=== PATIENT | female | born 1990 | race Caucasian/White ===

== ENCOUNTER 2016-11-13 23:03 | Emergency (ER) | payer OTHER ==
[2016-11-13 23:09] VITALS: BP 124/64; PULSE 87; RESP 18; TEMP 98
--- NOTE | 2016-11-13 23:27 | ED ---
Lower Extremity Injury HPI - General Chief Complaint: Extremity Injury, Lower Stated Complaint: toe pain Time Seen by Provider: 11/13/16 23:18 Source: patient, RN notes reviewed Mode of arrival: ambulatory Limitations: no limitations - History of Present Illness Initial Comments: 26-year-old female presented emergency department for right first digit toenail injury. Patient states she's unsure this happened. Patient has thickened nails secondary fungal infection. Patient states the nail is bothering her and just wants it removed. Patient has not follow-up with primary care physician. Patient's nail still partially attached. Patient denies any redness no fevers or chills states she is able to ambulate with no difficulty. - Related Data Home Medications Medication Instructions Recorded Confirmed No Known Home Medications [No 11/13/16 11/13/16 Known Home Medications] Allergies Allergy/AdvReac Type Severity Reaction Status Date / Time lamotrigine [From Lamictal] Allergy Rash/Hives Verified 11/13/16 23:09 Review of Systems ROS Statement: Those systems with pertinent positive or pertinent negative responses have been documented in the HPI. ROS Other: All systems not noted in ROS Statement are negative. Past Medical History Past Medical History: No Reported History History of Any Multi-Drug Resistant Organisms: None Reported Past Surgical History: No Surgical Hx Reported Past Psychological History: Anxiety, Bipolar, Depression Smoking Status: Current every day smoker Past Alcohol Use History: Occasional Past Drug Use History: Marijuana General Exam Limitations: no limitations General appearance: alert, in no apparent distress Head exam: Present: atraumatic, normocephalic, normal inspection Respiratory exam: Present: normal lung sounds bilaterally. Absent: respiratory distress, wheezes, rales, rhonchi, stridor Cardiovascular Exam: Present: regular rate, normal rhythm, normal heart sounds. Absent: systolic murmur, diastolic murmur, rubs, gallop, clicks Extremities exam: Present: other (Right foot first digit there is a thickened nail consistent with onychomycosis, there is a small tear the nail at the proximal nail fold it only involves a 1/4 of the nail. There is no erythema there is minimal tenderness to the area.) Course Vital Signs 11/13/16 23:07 Temperature 98 F Pulse Rate 87 Respiratory 18 Rate Blood Pressure 124/64 O2 Sat by Pulse 99 Oximetry Medical Decision Making - Medical Decision Making Patient is refusing x-ray. I did explain she is unsure how this injury happened and I would like to have an x-ray. Patient was informed that she can follow-up with primary care physician or community development coordinator for her nail to be removed. Disposition Clinical Impression: Injury of toenail of right foot Disposition: HOME SELF-CARE Condition: Stable Instructions: Nail Avulsion (ED) Additional Instructions: Please return to the Emergency Department if symptoms worsen or any other concerns. Follow-up with her primary care physician or community development coordinator for removal of your toenail Time of Disposition: 23:27
== END 2016-11-13 23:32 | disposition home or self-care (01) ==
LOC: EC 23:03
DX: S91.211A Laceration without foreign body of right great toe with damage to nail, initial encounter (principal); L60.2 Onychogryphosis; F17.200 Nicotine dependence, unspecified, uncomplicated; Z88.8 Allergy status to other drugs, medicaments and biological substances; X58.XXXA Exposure to other specified factors, initial encounter
CPT/HCPCS: 99282

== ENCOUNTER 2017-11-27 10:23 | Emergency (ER) | payer BC, OTHER ==
[2017-11-27 11:07] VITALS: BP 118/76; PULSE 96; RESP 18; TEMP 98
--- NOTE | 2017-11-27 12:54 | ED ---
General Adult HPI <Corky Monreal - Last Filed: 11/27/17 15:20> - General Source: patient, RN notes reviewed Mode of arrival: ambulatory Limitations: no limitations <Dalton Dale - Last Filed: 11/27/17 15:24> - General Chief complaint: Nausea/Vomiting/Diarrhea Stated complaint: RASH Time Seen by Provider: 11/27/17 12:39 - History of Present Illness Initial comments: Patient 27-year-old female who presents emergency room today with a chief complaint of a rash. Patient does admit to a sore throat that started last week. She states that she had some amoxicillin that she began taking. She states she's broken out into a rash that she noticed today grades the right forearm which does feel itchy to her back as well. Patient states that she was referred from work that she needed to come here to the emergency room evaluated to make sure it wasn't contagious. Patient denies any other complaints or associated symptoms. Patient denies any recent fever, chills, shortness of breath, chest pain, back pain, abdominal pain, nausea or vomiting, numbness or tingling, dysuria or hematuria, constipation or diarrhea, headaches or visual changes, or any other complaints. (Dalton Dale) - Related Data Previous Rx's Medication Instructions Recorded Triamcinolone 0.1% Cream [Kenalog] 1 applicatio TOPICAL BID #1 tube 11/27/17 predniSONE 40 mg PO DAILY 5 Days tab 11/27/17 Allergies Allergy/AdvReac Type Severity Reaction Status Date / Time lamotrigine [From Lamictal] Allergy Rash/Hives Verified 11/27/17 12:39 Review of Systems ROS Other: All systems not noted in ROS Statement are negative. <Corky Monreal - Last Filed: 11/27/17 15:20> ROS Other: All systems not noted in ROS Statement are negative. <Dalton Dale - Last Filed: 11/27/17 15:24> ROS Statement: Those systems with pertinent positive or pertinent negative responses have been documented in the HPI. Past Medical History Past Medical History: No Reported History History of Any Multi-Drug Resistant Organisms: None Reported Past Surgical History: No Surgical Hx Reported Past Psychological History: Anxiety, Bipolar, Depression Smoking Status: Current every day smoker Past Alcohol Use History: Occasional Past Drug Use History: None Reported, Marijuana <Dalton Dale - Last Filed: 11/27/17 15:24> General Exam <Corky Monreal - Last Filed: 11/27/17 15:20> Limitations: no limitations <Dalton Dale - Last Filed: 11/27/17 15:24> - General Exam Comments Initial Comments: General: The patient is awake and alert, in no distress, and does not appear acutely ill. Eye: Pupils are equal, round and reactive to light, extra-ocular movements are intact. No nystagmus. There is normal conjunctiva bilaterally. No signs of icterus. Ears, nose, mouth and throat: There are moist mucous membranes and no oral lesions. Mild redness of the posterior pharynx. Uvula midline. Patient swallows without any difficulty. Neck: The neck is supple, there is no tenderness or JVD. Cardiovascular: There is a regular rate and rhythm. No murmur, rub or gallop is appreciated. Respiratory: Lungs are clear to auscultation, respirations are non-labored, breath sounds are equal. No wheezes, stridor, rales, or rhonchi. Musculoskeletal: Normal ROM, no tenderness. Strength 5/5. Sensation intact. Pulses equal bilaterally 2+. Neurological: A&O x 3. CN II-XII intact, There are no obvious motor or sensory deficits. Coordination appears grossly intact. Speech is normal. Skin: She does have a red raised rash maculopapular to the volar aspect of the right forearm. Psychiatric: Cooperative, appropriate mood & affect, normal judgment. (Dalton Dale) Vital Signs 11/27/17 11:03 Temperature 98.0 F Pulse Rate 96 Respiratory 18 Rate Blood Pressure 118/76 O2 Sat by Pulse 99 Oximetry Medical Decision Making - Lab Data Result diagrams: 11/27/17 14:05 11/27/17 14:05 <Corky Monreal - Last Filed: 11/27/17 15:20> - Lab Data Result diagrams: 11/27/17 14:05 11/27/17 14:05 <Dalton Dale - Last Filed: 11/27/17 15:24> - Medical Decision Making The patient was seen and examined. All diagnostics were reviewed. The case is discussed with PA and I agree with the findings as documented. (Corky Monreal) - Lab Data Lab Results 11/27/17 11/27/17 11/27/17 Range/Units 14:05 14:05 14:05 WBC 7.4 (3.8-10.6) k/uL RBC 4.51 (3.80-5.40) m/uL Hgb 13.0 (11.4-16.0) gm/dL Hct 41.8 (34.0-46.0) % MCV 92.7 (80.0-100.0) fL MCH 28.7 (25.0-35.0) pg MCHC 31.0 (31.0-37.0) g/dL RDW 14.1 (11.5-15.5) % Plt Count 296 (150-450) k/uL Neutrophils % 56 % Lymphocytes % 32 % Monocytes % 4 % Eosinophils % 6 % Basophils % 1 % Neutrophils # 4.1 (1.3-7.7) k/uL Lymphocytes # 2.4 (1.0-4.8) k/uL Monocytes # 0.3 (0-1.0) k/uL Eosinophils # 0.4 (0-0.7) k/uL Basophils # 0.0 (0-0.2) k/uL Sodium 138 (137-145) mmol/L Potassium 4.3 (3.5-5.1) mmol/L Chloride 105 (98-107) mmol/L Carbon Dioxide 27 (22-30) mmol/L Anion Gap 6 mmol/L BUN 11 (7-17) mg/dL Creatinine 0.59 (0.52-1.04) mg/dL Est GFR (MDRD) Af Amer >60 (>60 ml/min/1.73 sqM) Est GFR (MDRD) Non-Af >60 (>60 ml/min/1.73 sqM) Glucose 90 (74-99) mg/dL Calcium 9.1 (8.4-10.2) mg/dL Total Bilirubin 0.2 (0.2-1.3) mg/dL AST 24 (14-36) U/L ALT 28 (9-52) U/L Alkaline Phosphatase 51 (38-126) U/L Total Protein 6.1 L (6.3-8.2) g/dL Albumin 3.6 (3.5-5.0) g/dL Heterophile Antibody Negative (Negative) Group A Strep Rapid (Negative) 11/27/17 Range/Units 14:05 WBC (3.8-10.6) k/uL RBC (3.80-5.40) m/uL Hgb (11.4-16.0) gm/dL Hct (34.0-46.0) % MCV (80.0-100.0) fL MCH (25.0-35.0) pg MCHC (31.0-37.0) g/dL RDW (11.5-15.5) % Plt Count (150-450) k/uL Neutrophils % % Lymphocytes % % Monocytes % % Eosinophils % % Basophils % % Neutrophils # (1.3-7.7) k/uL Lymphocytes # (1.0-4.8) k/uL Monocytes # (0-1.0) k/uL Eosinophils # (0-0.7) k/uL Basophils # (0-0.2) k/uL Sodium (137-145) mmol/L Potassium (3.5-5.1) mmol/L Chloride (98-107) mmol/L Carbon Dioxide (22-30) mmol/L Anion Gap mmol/L BUN (7-17) mg/dL Creatinine (0.52-1.04) mg/dL Est GFR (MDRD) Af Amer (>60 ml/min/1.73 sqM) Est GFR (MDRD) Non-Af (>60 ml/min/1.73 sqM) Glucose (74-99) mg/dL Calcium (8.4-10.2) mg/dL Total Bilirubin (0.2-1.3) mg/dL AST (14-36) U/L ALT (9-52) U/L Alkaline Phosphatase (38-126) U/L Total Protein (6.3-8.2) g/dL Albumin (3.5-5.0) g/dL Heterophile Antibody (Negative) Group A Strep Rapid Negative (Negative) Disposition <Corky Monreal - Last Filed: 11/27/17 15:20> Time of Disposition: 15:22 <Dalton Dale - Last Filed: 11/27/17 15:24> Clinical Impression: Contact dermatitis Disposition: HOME SELF-CARE Condition: Good Instructions: Contact Dermatitis (ED) Additional Instructions: Please use Benadryl one to 2 tabs every 6 hours as needed. Please use steroids as prescribed. Return to emergency room symptoms increase or concerns Prescriptions: predniSONE 40 mg PO DAILY 5 Days tab Triamcinolone 0.1% Cream [Kenalog] 1 applicatio TOPICAL BID #1 tube Referrals: None,Stated [Primary Care Provider] - 1-2 days Nicholas Pickering MD [REFERRING] - 1-2 days
[2017-11-27 14:26] LABS: Basophils % (A) 1 %; Eosinophils # (A) 0.4 k/uL (0-0.7); Eosinophils % (A) 6 %; HCT 41.8 % (34.0-46.0); Lymphocytes # (A) 2.4 k/uL (1.0-4.8); Lymphocytes % (A) 32 %; MCH 28.7 pg (25.0-35.0); MCV 92.7 fL (80.0-100.0); Monocytes # (A) 0.3 k/uL (0-1.0); Monocytes % (A) 4 %; Neutrophils # (A) 4.1 k/uL (1.3-7.7); Neutrophils % (A) 56 %; Platelet Count 296 k/uL (150-450); RBC 4.51 m/uL (3.80-5.40); RDW 14.1 % (11.5-15.5); WBC 7.4 k/uL (3.8-10.6)
[2017-11-27 14:39] LABS: ALT 28 U/L (9-52); AST 24 U/L (14-36); Albumin 3.6 g/dL (3.5-5.0); Alkaline Phosphatase 51 U/L (38-126); Anion Gap 6 mmol/L; Blood Urea Nitrogen 11 mg/dL (7-17); Calcium 9.1 mg/dL (8.4-10.2); Carbon Dioxide 27 mmol/L (22-30); Chloride 105 mmol/L (98-107); Glucose 90 mg/dL (74-99); Potassium 4.3 mmol/L (3.5-5.1); Sodium 138 mmol/L (137-145); Total Bilirubin 0.2 mg/dL (0.2-1.3); Total Protein 6.1 g/dL (6.3-8.2)
[2017-11-27 15:40] LABS: Appearance,Urine Cloudy (Clear); Bacteria,Urine Rare /hpf; Bilirubin,Urine Negative (Negative); Blood,Urine Negative (Negative); Color,Urine Light Yellow; Glucose,Urine (UA) Negative (Negative); Ketones,Urine Negative (Negative); Leukocyte Esterase,Urine Small (Negative); Nitrite,Urine Negative (Negative); Protein,Urine Negative (Negative); RBC,Urine <1 /hpf (0-5); Specific Gravity,Urine 1.009 (1.001-1.035); Squamous Epithelial Cell,Urine 12 /hpf (0-4); Urobilinogen,Urine <2.0 mg/dL (<2.0); WBC,Urine 4 /hpf (0-5)
== END 2017-11-27 15:41 | disposition home or self-care (01) ==
LOC: EC 10:23
DX: L25.9 Unspecified contact dermatitis, unspecified cause (principal); F17.200 Nicotine dependence, unspecified, uncomplicated; Z88.8 Allergy status to other drugs, medicaments and biological substances
CPT/HCPCS: 36415; 80053; 81001; 85025; 86308; 87081; 87430; 99284

== ENCOUNTER 2018-04-04 19:37 | Emergency (ER) | payer BC, OTHER ==
[2018-04-04] MEDS ORDERED: SODIUM CHLORIDE 0.9% 1,000 ML IV ONE (20:02)
--- NOTE | 2018-04-04 20:06 | ED ---
Female Urogenital HPI - General Chief complaint: Vaginal Bleeding Stated complaint: 5 weeks /Bleeding Time Seen by Provider: 04/04/18 19:52 Source: patient, family Mode of arrival: ambulatory - History of Present Illness Initial comments: 27-year-old female patient presents to the emergency department today for evaluation of vaginal bleeding. Patient states she is approximately 5 weeks . Patient is . Patient states that she had a positive test last week, but the lines were faint. States that she did have heavy vaginal bleeding on the and 30 of March. States that the bleeding stopped and then started again today with spotting. She did have confirmed [facility]. Patient's that she is having some mild right lower quadrant cramping with this. She denies any back pain. Denies any abnormal vaginal discharge. She denies any hematuria, dysuria, urinary frequency, urinary urgency. Patient denies any recent rash, fever, chills, shortness breath, chest pain, abdominal pain, nausea, vomiting, diarrhea, constipation, back pain, numbness, tingling, dizziness, weakness, headache, visual changes, or any other complaints. Patient denies ever having to receive [place] during her pregnancies. - Related Data Home Medications Medication Instructions Recorded Confirmed Folic Acid 1 mg PO DAILY 04/04/18 04/04/18 Pnv,Calcium 72/Iron/Folic Acid 1 tab PO DAILY 04/04/18 04/04/18 [ Plus Tablet] Allergies Allergy/AdvReac Type Severity Reaction Status Date / Time lamotrigine [From Lamictal] Allergy Rash/Hives Verified 04/04/18 19:52 Review of Systems ROS Statement: Those systems with pertinent positive or pertinent negative responses have been documented in the HPI. ROS Other: All systems not noted in ROS Statement are negative. Past Medical History Past Medical History: No Reported History History of Any Multi-Drug Resistant Organisms: None Reported Past Surgical History: No Surgical Hx Reported Smoking Status: Current every day smoker Past Alcohol Use History: Occasional Past Drug Use History: None Reported, Marijuana General Exam General appearance: alert, in no apparent distress, other (This is a well- developed, well-nourished adult female patient in no acute distress. Vital signs upon presentation are temperature 98.8F, pulse 86, respirations 20, blood pressure 133/80, pulse ox 99% on room air.) Eye exam: Present: normal appearance, PERRL, EOMI. Absent: scleral icterus, conjunctival injection, periorbital swelling ENT exam: Present: normal exam, normal oropharynx, mucous membranes moist Respiratory exam: Present: normal lung sounds bilaterally. Absent: respiratory distress, wheezes, rales, rhonchi, stridor Cardiovascular Exam: Present: regular rate, normal rhythm, normal heart sounds. Absent: systolic murmur, diastolic murmur, rubs, gallop, clicks GI/Abdominal exam: Present: soft, normal bowel sounds. Absent: distended, tenderness, guarding, rebound, rigid Back exam: Present: normal inspection. Absent: CVA tenderness (R), CVA tenderness (L) Neurological exam: Present: alert, oriented X3, CN II-XII intact Psychiatric exam: Present: normal affect, normal mood Skin exam: Present: warm, dry, intact, normal color. Absent: rash Course Vital Signs 04/04/18 04/04/18 19:44 21:52 Temperature 98.8 F 98.6 F Pulse Rate 86 80 Respiratory 20 19 Rate Blood Pressure 133/80 129/76 O2 Sat by Pulse 99 98 Oximetry Medical Decision Making - Medical Decision Making 27-year-old female patient presents the emergency department today for complaints of mild right lower quadrant cramping and spotting. Physical examination was unremarkable. There is no abdominal tenderness. Labs reviewed and did show a serum beta Quant of 42. Patient is be positive. Ultrasound was obtained and showed no current intrauterine . I did discuss findings with the patient. We did discuss early versus threatened miscarriage. She was given a prescription for repeat hCG in 3 days. She is instructed to follow-up with Dr. Paredes for recheck as soon as possible. Return parameters discussed in detail. She verbalizes understanding and agrees with this plan. - Lab Data Result diagrams: 04/04/18 20:14 04/04/18 20:14 Lab Results 04/04/18 04/04/18 04/04/18 Range/Units 20:14 20:14 20:14 WBC 6.1 (3.8-10.6) k/uL RBC 4.42 (3.80-5.40) m/uL Hgb 13.1 (11.4-16.0) gm/dL Hct 38.6 (34.0-46.0) % MCV 87.2 (80.0-100.0) fL MCH 29.6 (25.0-35.0) pg MCHC 33.9 (31.0-37.0) g/dL RDW 13.5 (11.5-15.5) % Plt Count 304 (150-450) k/uL Neutrophils % 53 % Lymphocytes % 33 % Monocytes % 6 % Eosinophils % 6 % Basophils % 0 % Neutrophils # 3.2 (1.3-7.7) k/uL Lymphocytes # 2.1 (1.0-4.8) k/uL Monocytes # 0.4 (0-1.0) k/uL Eosinophils # 0.4 (0-0.7) k/uL Basophils # 0.0 (0-0.2) k/uL Sodium 139 (137-145) mmol/L Potassium 4.6 (3.5-5.1) mmol/L Chloride 101 (98-107) mmol/L Carbon Dioxide 29 (22-30) mmol/L Anion Gap 9 mmol/L BUN 26 H (7-17) mg/dL Creatinine 0.62 (0.52-1.04) mg/dL Est GFR (CKD-EPI)AfAm >90 (>60 ml/min/1.73 sqM) Est GFR (CKD-EPI)NonAf >90 (>60 ml/min/1.73 sqM) Glucose 87 (74-99) mg/dL Calcium 9.9 (8.4-10.2) mg/dL Total Bilirubin 0.2 (0.2-1.3) mg/dL AST 23 (14-36) U/L ALT 32 (9-52) U/L Alkaline Phosphatase 43 (38-126) U/L Total Protein 7.0 (6.3-8.2) g/dL Albumin 4.4 (3.5-5.0) g/dL HCG, Quant 42.6 mIU/mL Urine Color Urine Appearance (Clear) Urine pH (5.0-8.0) Ur Specific [place] (1.001-1.035) Urine Protein (Negative) Urine Glucose (UA) (Negative) Urine Ketones (Negative) Urine Blood (Negative) Urine Nitrite (Negative) Urine Bilirubin (Negative) Urine Urobilinogen (<2.0) mg/dL Ur Leukocyte Esterase (Negative) Urine RBC (0-5) /hpf Urine WBC (0-5) /hpf Ur Squamous Epith Cells (0-4) /hpf Amorphous Sediment (None) /hpf Urine Mucus (None) /hpf Blood Type B Positive Blood Type Recheck No 04/04/18 Range/Units 20:14 WBC (3.8-10.6) k/uL RBC (3.80-5.40) m/uL Hgb (11.4-16.0) gm/dL Hct (34.0-46.0) % MCV (80.0-100.0) fL MCH (25.0-35.0) pg MCHC (31.0-37.0) g/dL RDW (11.5-15.5) % Plt Count (150-450) k/uL Neutrophils % % Lymphocytes % % Monocytes % % Eosinophils % % Basophils % % Neutrophils # (1.3-7.7) k/uL Lymphocytes # (1.0-4.8) k/uL Monocytes # (0-1.0) k/uL Eosinophils # (0-0.7) k/uL Basophils # (0-0.2) k/uL Sodium (137-145) mmol/L Potassium (3.5-5.1) mmol/L Chloride (98-107) mmol/L Carbon Dioxide (22-30) mmol/L Anion Gap mmol/L BUN (7-17) mg/dL Creatinine (0.52-1.04) mg/dL Est GFR (CKD-EPI)AfAm (>60 ml/min/1.73 sqM) Est GFR (CKD-EPI)NonAf (>60 ml/min/1.73 sqM) Glucose (74-99) mg/dL Calcium (8.4-10.2) mg/dL Total Bilirubin (0.2-1.3) mg/dL AST (14-36) U/L ALT (9-52) U/L Alkaline Phosphatase (38-126) U/L Total Protein (6.3-8.2) g/dL Albumin (3.5-5.0) g/dL HCG, Quant mIU/mL Urine Color Light Yellow Urine Appearance Cloudy H (Clear) Urine pH 7.5 (5.0-8.0) Ur Specific [place] 1.015 (1.001-1.035) Urine Protein Negative (Negative) Urine Glucose (UA) Negative (Negative) Urine Ketones Negative (Negative) Urine Blood Small H (Negative) Urine Nitrite Negative (Negative) Urine Bilirubin Negative (Negative) Urine Urobilinogen <2.0 (<2.0) mg/dL Ur Leukocyte Esterase Negative (Negative) Urine RBC <1 (0-5) /hpf Urine WBC <1 (0-5) /hpf Ur Squamous Epith Cells <1 (0-4) /hpf Amorphous Sediment Rare H (None) /hpf Urine Mucus Rare H (None) /hpf Blood Type Blood Type Recheck - Radiology Data Radiology results: report reviewed Transvaginal ultrasound of the pelvis was obtained. Report was reviewed in its entirety. Impression by Dr. Smith shows normal uterus and endometrium. No evidence of a gestational sac. No adnexal mass. Follicular ovarian cysts. Disposition Clinical Impression: Threatened miscarriage Disposition: HOME SELF-CARE Condition: Good Instructions: Threatened Miscarriage (ED) Additional Instructions: Follow-up with [facility] [employer] as soon as possible. Have repeat hCG level drawn in 3 days. Return here immediately for any new, worsening, or concerning symptoms. Is patient prescribed a controlled substance at d/c from ED?: No Referrals: None,Stated [Primary Care Provider] - 1-2 days Time of Disposition: 21:22
[2018-04-04 20:26] LABS: Basophils % (A) 0 %; Eosinophils # (A) 0.4 k/uL (0-0.7); Eosinophils % (A) 6 %; HCT 38.6 % (34.0-46.0); HGB 13.1 gm/dL (11.4-16.0); Lymphocytes # (A) 2.1 k/uL (1.0-4.8); Lymphocytes % (A) 33 %; MCH 29.6 pg (25.0-35.0); MCHC 33.9 g/dL (31.0-37.0); MCV 87.2 fL (80.0-100.0); Mean Platelet Volume 6.7; Monocytes # (A) 0.4 k/uL (0-1.0); Monocytes % (A) 6 %; Neutrophils # (A) 3.2 k/uL (1.3-7.7); Neutrophils % (A) 53 %; Platelet Count 304 k/uL (150-450); RBC 4.42 m/uL (3.80-5.40); RDW 13.5 % (11.5-15.5); WBC 6.1 k/uL (3.8-10.6)
[2018-04-04 20:31] LABS: Amorphous Sediment,Urine Rare /hpf; Appearance,Urine Cloudy (Clear); Bilirubin,Urine Negative (Negative); Blood,Urine Small (Negative); Color,Urine Light Yellow; Glucose,Urine (UA) Negative (Negative); Ketones,Urine Negative (Negative); Leukocyte Esterase,Urine Negative (Negative); Mucus,Urine Rare /hpf; Nitrite,Urine Negative (Negative); PH, Urine 7.5 (5.0-8.0); Protein,Urine Negative (Negative); RBC,Urine <1 /hpf (0-5); Specific Gravity,Urine 1.015 (1.001-1.035); Squamous Epithelial Cell,Urine <1 /hpf (0-4); Urobilinogen,Urine <2.0 mg/dL (<2.0); WBC,Urine <1 /hpf (0-5)
[2018-04-04 20:35] LABS: ALT 32 U/L (9-52); AST 23 U/L (14-36); Albumin 4.4 g/dL (3.5-5.0); Alkaline Phosphatase 43 U/L (38-126); Anion Gap 9 mmol/L; Blood Urea Nitrogen 26 mg/dL (7-17); Calcium 9.9 mg/dL (8.4-10.2); Carbon Dioxide 29 mmol/L (22-30); Chloride 101 mmol/L (98-107); Glucose 87 mg/dL (74-99); Potassium 4.6 mmol/L (3.5-5.1); Sodium 139 mmol/L (137-145); Total Bilirubin 0.2 mg/dL (0.2-1.3)
[2018-04-04 20:51] LABS: HCG,Quantitative Serum 42.6 mIU/mL
--- NOTE | 2018-04-04 21:09 | US ---
EXAMINATION TYPE: Transabdominal DATE OF EXAM: 02/13/18 COMPARISON: NONE CLINICAL HISTORY: Pain. Intermittent bleeding and right pelvic cramping x 1 week, + home te st, 3, para 2 EXAM PERFORMED: Transvaginal (TV) and Transabdominal (TA) EXAM MEASUREMENTS: GESTATIONAL AGE / DATING Physician Established: Not established yet Dates by LMP: (5 weeks/3 days) EDC: 12/02/2018 Dates by First Scan: This is 1st scan Dates by Current Scan for: No IUP seen at this time MATERNAL ANATOMY Uterus: 7.1 x 3.9 x 4.8cm, anteverted Right Ovary: 3.2 x 2.3 x 2.9cm, multiple follicles Left Ovary: 2.8 x 1.4 x 2.3cm, multiple follicles Post CDS / Adnexa: wnl Presence of free fluid: no Presence of corpus luteal cyst: not seen at this time Presence of subchorionic bleed: no GESTATION / SURVEY IUP: No IUP seen at this time Date of LMP: 02/25/2018 Beta HcG (if available): Not available at time of exam. IMPRESSION: Normal uterus and endometrium. No evidence of a gestational sac. No adnexal mass. Follicular ovarian cysts.
[2018-04-04 21:54] VITALS: BP 129/76; PULSE 80; RESP 19; TEMP 98.6
== END 2018-04-04 21:55 | disposition home or self-care (01) ==
LOC: EC 19:37
DX: O20.0 Threatened abortion (principal); Z3A.01 Less than 8 weeks gestation of pregnancy; O99.331 Smoking (tobacco) complicating pregnancy, first trimester; F17.200 Nicotine dependence, unspecified, uncomplicated; Z79.899 Other long term (current) drug therapy; Z88.8 Allergy status to other drugs, medicaments and biological substances
CPT/HCPCS: 36415; 76801; 76817; 80053; 81001; 84702; 85025; 86900; 86901; 96360; 96361; 99284

== ENCOUNTER → 2018-04-07 | Outpatient (CLI) | payer SELFPAY | END | disposition home or self-care (01) | LOC: LABWHC1 09:17 | PROVIDERS: ATTEND Nurse Practitioner | DX: O20.0 Threatened abortion (principal); Z3A.00 Weeks of gestation of pregnancy not specified | CPT/HCPCS: 36415; 84702 ==

== ENCOUNTER → 2018-04-16 | Outpatient (CLI) | payer SELFPAY | END | disposition home or self-care (01) | LOC: LABWHC1 08:22 | PROVIDERS: ATTEND Obstetrics & Gynecology | DX: O03.9 Complete or unspecified spontaneous abortion without complication (principal) | CPT/HCPCS: 36415; 84702 ==

== ENCOUNTER → 2018-08-03 | Outpatient (CLI) | payer SELFPAY ==
[2018-08-03 10:56] LABS: T4, Free (Free Thyroxine) 1.02 ng/dL (0.78-2.19)
[2018-08-03 16:06] LABS: Progesterone 0.5 ng/mL
== END | disposition home or self-care (01) ==
LOC: LABWHC1 09:43
PROVIDERS: ATTEND Obstetrics & Gynecology
DX: N92.6 Irregular menstruation, unspecified (principal)
CPT/HCPCS: 36415; 82627; 82670; 83001; 83002; 84144; 84146; 84403; 84439; 84443

== ENCOUNTER 2018-11-09 13:58 | Emergency (ER) | payer BC ==
[2018-11-09 15:17] LABS: INR 0.9 (<1.2); Partial Thromboplastin Time 22.8 sec (22.0-30.0); Prothrombin Time 10.1 sec (9.0-12.0)
[2018-11-09 15:24] LABS: Basophils % (A) 0 %; Eosinophils # (A) 0.3 k/uL (0-0.7); Eosinophils % (A) 5 %; HCT 39.6 % (34.0-46.0); HGB 13.1 gm/dL (11.4-16.0); Lymphocytes # (A) 1.3 k/uL (1.0-4.8); Lymphocytes % (A) 22 %; MCH 28.4 pg (25.0-35.0); MCHC 33.2 g/dL (31.0-37.0); MCV 85.8 fL (80.0-100.0); Mean Platelet Volume 6.2; Monocytes # (A) 0.2 k/uL (0-1.0); Monocytes % (A) 4 %; Neutrophils # (A) 3.9 k/uL (1.3-7.7); Neutrophils % (A) 68 %; Platelet Count 291 k/uL (150-450); RBC 4.62 m/uL (3.80-5.40); RDW 12.6 % (11.5-15.5); WBC 5.8 k/uL (3.8-10.6)
[2018-11-09 15:37] LABS: ALT 23 U/L (9-52); AST 18 U/L (14-36); Albumin 4.3 g/dL (3.5-5.0); Alkaline Phosphatase 32 U/L (38-126); Anion Gap 9 mmol/L; Blood Urea Nitrogen 11 mg/dL (7-17); Calcium 10.3 mg/dL (8.4-10.2); Carbon Dioxide 25 mmol/L (22-30); Chloride 102 mmol/L (98-107); Glucose 86 mg/dL (74-99); Potassium 4.4 mmol/L (3.5-5.1); Sodium 136 mmol/L (137-145); Total Bilirubin 0.3 mg/dL (0.2-1.3); Total Protein 7.2 g/dL (6.3-8.2)
[2018-11-09 15:53] LABS: HCG,Quantitative Serum 2953.1 mIU/mL
--- NOTE | 2018-11-09 16:01 | ED ---
Abdominal Pain HPI <Nhan Bonner - Last Filed: 11/09/18 17:43> - General Source: patient, RN notes reviewed, old records reviewed Mode of arrival: ambulatory Limitations: no limitations <Nahed Ruiz - Last Filed: 11/09/18 20:32> - General Chief Complaint: Abdominal Pain Stated Complaint: 5 weeks abd pain Time Seen by Provider: 11/09/18 14:29 - History of Present Illness Initial Comments: Patient is a 28 year old female with chief complaint of left-sided abdominal pain, Patient ports that she is a proximally 5-6 weeks . Patient's OB/ ACCOUNT EXECUTIVE KEY ACCOUNTS is Dr. Paredes. Patient reports that she has been undergoing treatment with metformin and Clomid for her PCO S. Over the past 3 days she's had the feeling that she had have a bowel movement. Patient states that despite trying to have a bowel movement she has been unable to get rid of this pain. She reports it's painful with movement and ambulation. Patient states the pain had her doubled over at work. Patient reports that she has had no fevers or chills. She reports the pain seems to wax and wane. (Nahed Ruiz) - Related Data Home Medications Medication Instructions Recorded Confirmed Folic Acid 1 mg PO DAILY 04/04/18 11/09/18 Pnv,Calcium 72/Iron/Folic Acid 1 tab PO DAILY 04/04/18 11/09/18 [ Plus Tablet] metFORMIN HCL [Glucophage] 850 mg PO BID 11/09/18 11/09/18 Allergies Allergy/AdvReac Type Severity Reaction Status Date / Time lamotrigine [From Lamictal] Allergy Rash/Hives Verified 11/09/18 15:42 Review of Systems ROS Other: All systems not noted in ROS Statement are negative. <Nhan Bonner - Last Filed: 11/09/18 17:43> ROS Other: All systems not noted in ROS Statement are negative. <Nahed Ruiz - Last Filed: 11/09/18 20:32> ROS Statement: Those systems with pertinent positive or pertinent negative responses have been documented in the HPI. Past Medical History Past Medical History: No Reported History Additional Past Medical History / Comment(s): PCOS History of Any Multi-Drug Resistant Organisms: None Reported Past Surgical History: No Surgical Hx Reported Past Psychological History: Anxiety, Bipolar, Depression Smoking Status: Current every day smoker Past Alcohol Use History: Occasional Past Drug Use History: None Reported, Marijuana <Nahed Ruiz - Last Filed: 11/09/18 20:32> General Exam <Nhan Bonner - Last Filed: 11/09/18 17:43> Limitations: no limitations General appearance: alert, in no apparent distress Head exam: Present: atraumatic, normocephalic, normal inspection Eye exam: Present: normal appearance, PERRL, EOMI. Absent: scleral icterus, conjunctival injection, periorbital swelling ENT exam: Present: normal exam, mucous membranes moist Neck exam: Present: normal inspection. Absent: tenderness, meningismus, lymphadenopathy Respiratory exam: Present: normal lung sounds bilaterally. Absent: respiratory distress, wheezes, rales, rhonchi, stridor Cardiovascular Exam: Present: regular rate, normal rhythm, normal heart sounds. Absent: systolic murmur, diastolic murmur, rubs, gallop, clicks GI/Abdominal exam: Present: tenderness (Patient has significant left lower quadrant tenderness and guarding noted.), normal bowel sounds. Absent: soft, distended, guarding, rebound, rigid Extremities exam: Present: normal inspection, full ROM, normal capillary refill. Absent: tenderness, pedal edema, joint swelling, calf tenderness Back exam: Present: normal inspection Neurological exam: Present: alert, oriented X3, CN II-XII intact Psychiatric exam: Present: normal affect, normal mood Skin exam: Present: warm, dry, intact, normal color. Absent: rash <Nahed Ruiz - Last Filed: 11/09/18 20:32> - General Exam Comments Initial Comments: This is a 28-year-old female. Alert and oriented. Patient appears in On her discomfort. Patient is crying. (Nahed Ruiz) Vital Signs 11/09/18 11/09/18 14:10 17:10 Temperature 97.7 F 98.1 F Pulse Rate 94 82 Respiratory 20 18 Rate Blood Pressure 125/70 126/85 O2 Sat by Pulse 98 98 Oximetry - Reevaluation(s) Reevaluation #1: 11/09/18 17:22 Patient reexamined and reevaluated by myself, Dr. Bonner. Patient resting in bed. Patient does have moderate tenderness to lower abdominal/pelvic region on exam. First day last menstrual period was September 28. Patient is A1. Dr. Paredes has been paged. Patient does have an appointment to see her and has seen her in the past. I did review and agree with PAs findings. This includes all diagnostic interpretations and treatment plan. 11/09/18 17:43 Case was discussed in detail with Dr. Sylvester. She does recommend repeat beta hCG Monday night or early Monday morning. She also recommends patient follow up with Dr. Paredes on Monday. Office is closed until Monday. Return if symptoms worsen or bleeding. (Nhan Bonner) Medical Decision Making - Lab Data Result diagrams: 11/09/18 14:51 11/09/18 14:51 <Nhan Bonner - Last Filed: 11/09/18 17:43> - Lab Data Result diagrams: 11/09/18 14:51 11/09/18 14:51 - Radiology Data Radiology results: report reviewed <Nahed Ruiz - Last Filed: 11/09/18 20:32> - Medical Decision Making Patient is a 28-year-old female, really 6 weeks . She presents emergency department today for complaints of left-sided abdominal pain for the past 3 days. Patient is very tender on exam. At this time is concern for ectopic . HCG levels obtained an ultrasound completed. Ultrasound does not show evidence of intrauterine . There was a corpus luteum cyst over the left ovary. Ultrasound report states there is possibility of 2 early to detect intrauterine , threatened miscarriage, or ectopic . White blood cell count was reviewed and normal. Hemoglobin is stable. Pelvic exam did show some tenderness, but no bleeding was noted. Patient is very anxious and concerned that she could have a miscarriage or ectopic at this time. She reports that she has been suffering from infertility for the past year. I discussed the case with Dr. Bonner. He Discussed the case with on-call LINE CONSTRUCTION ENGINEER Dr. Sylvester. Dr. Sylvester recommends that Patient repeat her hCG level on Monday morning have the labs sent to her. This was completed on the outpatient prescription form.. And the Patient should follow-up with Dr. Sylvester on Monday. I had a lengthy discussion with the Patient if she had severe pain that she must return for reevaluation. Patient was hesitant for discharge but eventually did agree to be discharged with close follow-up. Strict return parameters were discussed. (Nahed Ruiz) - Lab Data Lab Results 11/09/18 11/09/18 11/09/18 Range/Units 14:51 14:51 14:51 WBC 5.8 (3.8-10.6) k/uL RBC 4.62 (3.80-5.40) m/uL Hgb 13.1 (11.4-16.0) gm/dL Hct 39.6 (34.0-46.0) % MCV 85.8 (80.0-100.0) fL MCH 28.4 (25.0-35.0) pg MCHC 33.2 (31.0-37.0) g/dL RDW 12.6 (11.5-15.5) % Plt Count 291 (150-450) k/uL Neutrophils % 68 % Lymphocytes % 22 % Monocytes % 4 % Eosinophils % 5 % Basophils % 0 % Neutrophils # 3.9 (1.3-7.7) k/uL Lymphocytes # 1.3 (1.0-4.8) k/uL Monocytes # 0.2 (0-1.0) k/uL Eosinophils # 0.3 (0-0.7) k/uL Basophils # 0.0 (0-0.2) k/uL PT (9.0-12.0) sec INR (<1.2) APTT (22.0-30.0) sec Sodium 136 L (137-145) mmol/L Potassium 4.4 (3.5-5.1) mmol/L Chloride 102 (98-107) mmol/L Carbon Dioxide 25 (22-30) mmol/L Anion Gap 9 mmol/L BUN 11 (7-17) mg/dL Creatinine 0.52 (0.52-1.04) mg/dL Est GFR (CKD-EPI)AfAm >90 (>60 ml/min/1.73 sqM) Est GFR (CKD-EPI)NonAf >90 (>60 ml/min/1.73 sqM) Glucose 86 (74-99) mg/dL Calcium 10.3 H (8.4-10.2) mg/dL Total Bilirubin 0.3 (0.2-1.3) mg/dL AST 18 (14-36) U/L ALT 23 (9-52) U/L Alkaline Phosphatase 32 L (38-126) U/L Total Protein 7.2 (6.3-8.2) g/dL Albumin 4.3 (3.5-5.0) g/dL HCG, Quant 2953.1 mIU/mL Urine Color Urine Appearance (Clear) Urine pH (5.0-8.0) Ur Specific [place] (1.001-1.035) Urine Protein (Negative) Urine Glucose (UA) (Negative) Urine Ketones (Negative) Urine Blood (Negative) Urine Nitrite (Negative) Urine Bilirubin (Negative) Urine Urobilinogen (<2.0) mg/dL Ur Leukocyte Esterase (Negative) Trichomonas Ag (Rapid) (Negative) Blood Type B Positive Blood Type Recheck No 11/09/18 11/09/18 11/09/18 Range/Units 14:51 16:31 17:00 WBC (3.8-10.6) k/uL RBC (3.80-5.40) m/uL Hgb (11.4-16.0) gm/dL Hct (34.0-46.0) % MCV (80.0-100.0) fL MCH (25.0-35.0) pg MCHC (31.0-37.0) g/dL RDW (11.5-15.5) % Plt Count (150-450) k/uL Neutrophils % % Lymphocytes % % Monocytes % % Eosinophils % % Basophils % % Neutrophils # (1.3-7.7) k/uL Lymphocytes # (1.0-4.8) k/uL Monocytes # (0-1.0) k/uL Eosinophils # (0-0.7) k/uL Basophils # (0-0.2) k/uL PT 10.1 (9.0-12.0) sec INR 0.9 (<1.2) APTT 22.8 (22.0-30.0) sec Sodium (137-145) mmol/L Potassium (3.5-5.1) mmol/L Chloride (98-107) mmol/L Carbon Dioxide (22-30) mmol/L Anion Gap mmol/L BUN (7-17) mg/dL Creatinine (0.52-1.04) mg/dL Est GFR (CKD-EPI)AfAm (>60 ml/min/1.73 sqM) Est GFR (CKD-EPI)NonAf (>60 ml/min/1.73 sqM) Glucose (74-99) mg/dL Calcium (8.4-10.2) mg/dL Total Bilirubin (0.2-1.3) mg/dL AST (14-36) U/L ALT (9-52) U/L Alkaline Phosphatase (38-126) U/L Total Protein (6.3-8.2) g/dL Albumin (3.5-5.0) g/dL HCG, Quant mIU/mL Urine Color Colorless Urine Appearance Clear (Clear) Urine pH 6.0 (5.0-8.0) Ur Specific [place] 1.002 (1.001-1.035) Urine Protein Negative (Negative) Urine Glucose (UA) Negative (Negative) Urine Ketones Negative (Negative) Urine Blood Negative (Negative) Urine Nitrite Negative (Negative) Urine Bilirubin Negative (Negative) Urine Urobilinogen <2.0 (<2.0) mg/dL Ur Leukocyte Esterase Negative (Negative) Trichomonas Ag (Rapid) Negative (Negative) Blood Type Blood Type Recheck - Radiology Data Endometrium is thickened 18 mm. No gestational sac, D.O. sac or pole is clearly identified. Small amount of free fluid was seen within the pelvic cul- de-sac towards the end of the study. Both ovaries are present. There is probable corpus luteal cyst in left ovary. No suspicious extra ovarian adnexal masses are noted. Overall impression is that is likely to reflect too early to visualize IUP however spontaneous is in the differential. Ectopic is not excluded. (Nahed Ruiz) Disposition <Nhan Bonner - Last Filed: 11/09/18 17:43> Is patient prescribed a controlled substance at d/c from ED?: No Time of Disposition: 18:03 <Nahed Ruiz - Last Filed: 11/09/18 20:32> Clinical Impression: Threatened miscarriage, LLQ pain Disposition: HOME SELF-CARE Condition: Good Instructions: Abdominal Pain (ED) Additional Instructions: Patient advised to have urinary hCG level rechecked on Monday morning. Results will be sent to Dr. Sylvester. Follow up with Dr. Sylvester and Dr. Paredes on Monday. Return to the emergency department if any alarming signs or symptoms occur. Patient can continue to use fiber to promote bowel movements. Return to the emergency department if any alarming signs or symptoms occur, including any vaginal bleeding. Referrals: None,Stated [Primary Care Provider] - 1-2 days Adrienne ySlvester DO [Doctor of Osteopathic Medicine] - 1-2 days
--- NOTE | 2018-11-09 16:15 | US ---
EXAMINATION TYPE: Transabdominal DATE OF EXAM: 02/13/18 COMPARISON: NONE CLINICAL HISTORY: Pain. Constipated patient, no vag bleed EXAM PERFORMED: OBTA and OBTV EXAM MEASUREMENTS: GESTATIONAL AGE / DATING Physician Established: Not yet established Dates by LMP: (6 weeks/0 days) EDC: 07/05/2018 Dates by First Scan: PLASTIC MANAGER Dates by Current Scan for: too early to date MATERNAL ANATOMY Uterus: 9.5 x 5.8 x 5.1cm Right Ovary: 2.5 x 1.8 x 1.7cm Left Ovary: 3.4 x 2.7 x 2.6cm Post CDS / Adnexa: wnl Presence of free fluid: no Presence of corpus luteal cyst: 2.8cm on the left Presence of subchorionic bleed: no GESTATION / SURVEY Endo thickness = 1.2cm Date of LMP: 09/28/2018 Beta HcG (if available): 2953 Endometrium is thickened to 18 mm. No gestational sac, yolk sac, or pole is clearly identified. Small amount free fluid is seen in pelvic cul-de-sac towards end of study. Both ovaries are present. There is probable corpus luteal cyst in the left ovary. No suspicious extra ovarian adnexal masses are seen. IMPRESSION: Findings likely reflect too early to visualize intrauterine but spontaneous is in differential and ectopic is not excluded. Serial beta hCG and ultrasound follow-up is advis ed.
[2018-11-09] MEDS ORDERED: ACETAMINOPHEN TAB 500 MG TAB PO STA (16:36)
[2018-11-09 16:56] LABS: Appearance,Urine Clear (Clear); Bilirubin,Urine Negative (Negative); Blood,Urine Negative (Negative); Color,Urine Colorless; Glucose,Urine (UA) Negative (Negative); Ketones,Urine Negative (Negative); Leukocyte Esterase,Urine Negative (Negative); Nitrite,Urine Negative (Negative); Protein,Urine Negative (Negative); Specific Gravity,Urine 1.002 (1.001-1.035); Urobilinogen,Urine <2.0 mg/dL (<2.0)
[2018-11-09 17:10] VITALS: BP 126/85; PULSE 82; RESP 18; TEMP 98.1
[2018-11-12 12:24] LABS: Chlamydia trachomatis rRNA Not detected (Not detected); Neisseria gonorrhoeae rRNA Not detected (Not detected)
== END 2018-11-09 18:09 | disposition home or self-care (01) ==
LOC: EC 13:58
DX: O20.0 Threatened abortion (principal); O99.281 Endocrine, nutritional and metabolic diseases complicating pregnancy, first trimester; E28.2 Polycystic ovarian syndrome; O99.331 Smoking (tobacco) complicating pregnancy, first trimester; F17.200 Nicotine dependence, unspecified, uncomplicated; Z88.8 Allergy status to other drugs, medicaments and biological substances; Z79.84 Long term (current) use of oral hypoglycemic drugs; Z79.899 Other long term (current) drug therapy; Z3A.01 Less than 8 weeks gestation of pregnancy
CPT/HCPCS: 36415; 76801; 76817; 80053; 81003; 84702; 85025; 85610; 85730; 86900; 86901; 87070; 87205; 87491; 87591; 87808; 99284

== ENCOUNTER → 2018-11-11 | Outpatient (CLI) | payer BC | END | disposition home or self-care (01) | LOC: RADXRMAIN 13:19 | PROVIDERS: ATTEND Physician Assistant Medical | DX: O20.0 Threatened abortion (principal) | CPT/HCPCS: 84702 ==

== ENCOUNTER → 2018-11-16 | Outpatient (CLI) | payer BC ==
[2018-11-16 14:54] LABS: HCT 40.8 % (34.0-46.0); HGB 13.4 gm/dL (11.4-16.0); MCH 28.6 pg (25.0-35.0); MCHC 32.8 g/dL (31.0-37.0); MCV 87.1 fL (80.0-100.0); Mean Platelet Volume 6.3; Platelet Count 270 k/uL (150-450); RBC 4.68 m/uL (3.80-5.40); RDW 12.8 % (11.5-15.5); WBC 5.3 k/uL (3.8-10.6)
[2018-11-16 15:23] LABS: HCG,Quantitative Serum 10528.8 mIU/mL
== END ==
LOC: LABWHC1 14:13
PROVIDERS: ATTEND Obstetrics & Gynecology
DX: O00.90 Unspecified ectopic pregnancy without intrauterine pregnancy (principal); Z3A.00 Weeks of gestation of pregnancy not specified
CPT/HCPCS: 36415; 84450; 84460; 84702; 85027

== ENCOUNTER 2018-11-18 16:17 | Outpatient (CLI) | payer BC ==
--- NOTE | 2018-11-19 11:42 | P.MSEPDOC ---
Presenting Problems - Arrival Data Date of Arrival on Unit: 11/18/18 Time of Arrival on Unit: 16:17 Mode of Transport: Ambulatory Physician Notification (Pre) - Notification Comment Comment: presents with telephone order from Dr. Pearson for quantitative Beta Hcg blood draw and then discharge to home Physician Notification (Post) - Notification Comment Comment: blood drawn and pt discharged to follow up with Dr. Paredes tomorrow Disposition - Disposition OB Disposition: Discharge to home Discharge Date: 11/18/18 Discharge Time: 16:36 I agree with the RN Medical Screening Exam: Yes Risk & Benefit of care provided described in d/c instruction: Yes Diagnosis: UNSPECIFIED ECTOPIC WITHOUT INTRAUTERINE
== END 2018-11-18 16:30 ==
LOC: FBPOP 16:17
PROVIDERS: ATTEND Obstetrics & Gynecology
DX: O00.90 Unspecified ectopic pregnancy without intrauterine pregnancy (principal); Z3A.00 Weeks of gestation of pregnancy not specified
CPT/HCPCS: 84702

== ENCOUNTER → 2018-11-19 | Outpatient (CLI) | payer BC ==
[~2018-11-19] MED LIST: METHOTREXATE SODIUM (PF) 25 MG/ML 2 ML VIAL IM NR
[2018-11-19 12:14] VITALS: BP 125/83; PULSE 120; RESP 18; TEMP 98.1
== END ==
LOC: PROCWHC3 11:05
PROVIDERS: ATTEND Obstetrics & Gynecology
DX: O00.90 Unspecified ectopic pregnancy without intrauterine pregnancy (principal); Z3A.00 Weeks of gestation of pregnancy not specified
CPT/HCPCS: 96402; J9260

== ENCOUNTER → 2018-11-23 | Outpatient (CLI) | payer BC | END | disposition home or self-care (01) | LOC: LABWHC1 10:17 | PROVIDERS: ATTEND Obstetrics & Gynecology | DX: O00.90 Unspecified ectopic pregnancy without intrauterine pregnancy (principal); Z3A.00 Weeks of gestation of pregnancy not specified | CPT/HCPCS: 36415; 84702 ==

== ENCOUNTER 2018-11-26 14:31 | Inpatient (IN) | payer BC ==
[2018-11-26] MEDS ORDERED: MORPHINE SULFATE 4 MG/ML SYRINGE IVP STA (14:59)
[2018-11-26] MEDS: SODIUM CHLORIDE 0.9% 1,000 ML IV ONE ×2 (15:25→17:14)
[2018-11-26 15:36] LABS: Basophils % (A) 0 %; Eosinophils # (A) 0.3 k/uL (0-0.7); Eosinophils % (A) 3 %; HCT 37.2 % (34.0-46.0); HGB 12.7 gm/dL (11.4-16.0); Lymphocytes # (A) 1.4 k/uL (1.0-4.8); Lymphocytes % (A) 19 %; MCH 29.4 pg (25.0-35.0); MCHC 34.2 g/dL (31.0-37.0); Mean Platelet Volume 6.1; Monocytes # (A) 0.2 k/uL (0-1.0); Monocytes % (A) 3 %; Neutrophils # (A) 5.6 k/uL (1.3-7.7); Neutrophils % (A) 74 %; Platelet Count 283 k/uL (150-450); RBC 4.32 m/uL (3.80-5.40); WBC 7.6 k/uL (3.8-10.6)
[2018-11-26 15:49] LABS: ALT 32 U/L (9-52); AST 22 U/L (14-36); Albumin 4.2 g/dL (3.5-5.0); Alkaline Phosphatase 35 U/L (38-126); Anion Gap 9 mmol/L; Blood Urea Nitrogen 10 mg/dL (7-17); Calcium 9.7 mg/dL (8.4-10.2); Carbon Dioxide 23 mmol/L (22-30); Chloride 105 mmol/L (98-107); Glucose 104 mg/dL (74-99); Sodium 137 mmol/L (137-145); Total Bilirubin 0.5 mg/dL (0.2-1.3); Total Protein 6.9 g/dL (6.3-8.2)
--- NOTE | 2018-11-26 16:34 | US ---
EXAMINATION TYPE: Ultrasound OB <= 14 weeks DATE OF EXAM: 11/26/2018 COMPARISON: 11/09/2018 CLINICAL HISTORY: 28-year-old female Pain. Left pelvic pain with ectopic ; patient received Methotrexate last Monday EXAM PERFORMED: Transvaginal (TV) and Transabdominal (TA) FINDINGS: EXAM MEASUREMENTS: GESTATIONAL AGE / DATING Dates for CRL by Current Scan for: 0.88cm (6weeks/0 days, nonviable) MATERNAL ANATOMY Uterus: 9.3 x 5.5 x 5.2cm Right Ovary: 2.5 x 1.9 x 1.8cm Left Ovary: 3.4 x 4.4 x 2.0cm Post CDS / Adnexa: complex fluid area seen medial to left ovary = 2.2 x 2.7 x 1.2cm Presence of free fluid: yes, as stated above Presence of corpus luteal cyst: in left ovary = 1.3 x 1.1 x 1.1cm GESTATION / SURVEY CRL: 0.88cm (6 weeks/6 days) seen in left paraovarian region in ectopic mass and size of mass = 3.5 x 2.6 x 2.4cm Heart Rate: none detected by color flow Doppler, pulse wave Doppler, or Power Doppler Date of LMP: 09/28/2018 Beta HcG (if available): 15200 today versus 2953 on 11/09/2018 Ectopic seen medial to left ovary; multiple small cysts seen in endometrium, likely pseudog estational reaction. IMPRESSION: 1. 3.5 cm ectopic mass medial to the left ovary with a pole demonstrated. [place]-rump length alayna philippe the gestation at 6 weeks 6 days. No cardiac activity is demonstrated. Continued close follow-up w ith ultrasound and serial beta-hCG is recommended to ensure nonviability and involution. 2. Mild cul-de-sac free fluid.
[2018-11-26 16:54] LABS: HCG,Quantitative Serum 16839.6 mIU/mL
[2018-11-26] MEDS: HYDROmorphone 0.5 MG/0.5 ML SYRINGE IVP STA ×2 (16:58→17:03)
[2018-11-26] MEDS ORDERED: HYDROmorphone 0.5 MG/0.5 ML SYRINGE IVP STA (17:03)
--- NOTE | 2018-11-26 17:31 | P.HPOB ---
History of Present Illness H&P Date: 11/26/18 Chief Complaint: pelvic pain and bleeding after MTX treatment for ectopic 28 year old presented to the ER with pelvic pain. She has a known ectopic on the left and was given methotrexate last Monday. Her bhcg did not drop by 15 % from day 4 to day 7 like it should have and she is an increased amount of pain today when she has not been in pain previously. US shows 6 week ectopic on the left side with some free fluid. I disc all R/B/A of laparoscopic removal of ectopic, possible laparotomy, possible salpingectomy, possible oophectomy, possible hysterectomy. Review of Systems All systems: negative Constitutional: Denies chills, Denies fever Eyes: denies blurred vision, denies pain Ears, nose, mouth and throat: Denies headache, Denies sore throat Cardiovascular: Denies chest pain, Denies shortness of breath Respiratory: Denies cough Gastrointestinal: Denies abdominal pain, Denies diarrhea, Denies nausea, Denies vomiting Genitourinary: Denies dysuria, Denies hematuria Musculoskeletal: Denies myalgias Integumentary: Denies pruritus, Denies rash Neurological: Denies numbness, Denies weakness Psychiatric: Denies anxiety, Denies depression Endocrine: Denies fatigue, Denies weight change Past Medical History Past Medical History: No Reported History Additional Past Medical History / Comment(s): PCOS, infertility History of Any Multi-Drug Resistant Organisms: None Reported Past Surgical History: No Surgical Hx Reported Past Psychological History: Anxiety, Bipolar, Depression Smoking Status: Former smoker Past Alcohol Use History: None Reported Past Drug Use History: None Reported Medications and Allergies Home Medications Medication Instructions Recorded Confirmed Type metFORMIN HCL [Glucophage] 850 mg PO BID 11/09/18 11/26/18 History Methotrexate Injection(Unknown 1 injection SQ ONCE 11/26/18 11/26/18 History Dose) Allergies Allergy/AdvReac Type Severity Reaction Status Date / Time lamotrigine [From Lamictal] Allergy Rash/Hives Verified 11/26/18 15:55 Exam Osteopathic Statement: *. No significant issues noted on an osteopathic structural exam other than those noted in the History and Physical/Consult. Vital Signs Temp Pulse Resp BP Pulse Ox 11/26/18 14:35 98.1 F 83 18 105/60 98 Intake and Output 11/26/18 11/26/18 11/26/18 06:59 14:59 22:59 Other: Weight 67.585 kg Heart: RRR Lungs: CTAB Abdomen: soft, tender to deep palpation, no rigidity or rebound Extremeties: neg lisandro's Results Result Diagrams: 11/26/18 15:15 11/26/18 15:15 Abnormal Lab Results - Last 24 Hours (Table) 11/26/18 Range/Units 15:15 Creatinine 0.47 L (0.52-1.04) mg/dL Glucose 104 H (74-99) mg/dL Alkaline Phosphatase 35 L (38-126) U/L Assessment and Plan (1) Ectopic Current Visit: Yes Status: Acute Code(s): O00.90 - UNSPECIFIED ECTOPIC WITHOUT INTRAUTERINE SNOMED Code(s): 82666943 Plan: 1. operative laparocopy with removal of ectopic, possible laparotomy, possible salpingectomy, possible oopherectomy, possible hysterectomy. Discussed all R/B/ A with patient and her .
--- NOTE | 2018-11-26 17:32 | ED ---
Abdominal Pain HPI - General Chief Complaint: Abdominal Pain Stated Complaint: ectopic Time Seen by Provider: 11/26/18 14:46 Source: patient Mode of arrival: ambulatory Limitations: no limitations - History of Present Illness Initial Comments: -year-old female past medical history of diabetes on metformin presenting today for chief complaint of ectopic . Patient states that she was diagnosed with an ectopic parents state has been following her her PROFESSOR OF MUSIC Dr. Paredes outpatient. She states she is about 6 weeks . She states there were heart tones. Patient was treated with methotrexate last Monday. Patient states she has not had vaginal bleeding. Patient states that she has had increasing pain that began 3 hours ago. Patient states she has been trending her hCG which did not decrease by the appropriate 15% in between draws. Patient contacted her PROFESSOR OF MUSIC who recommended immediate presentation to the emergency department. Patient complied presenting for evaluation. Patient complains of left lower quadrant pain. Patient denies any vaginal bleeding, vaginal discharge. Patient denies any recent fever, chills, shortness of breath, chest pain, back pain, nausea or vomiting, numbness or tingling, dysuria or hematuria, constipation or diarrhea, headaches or visual changes, or any other complaints. Upon arrival patient is hemodynamically stable, pain well. - Related Data Home Medications Medication Instructions Recorded Confirmed metFORMIN HCL [Glucophage] 850 mg PO BID 11/09/18 11/26/18 Methotrexate Injection(Unknown 1 injection SQ ONCE 11/26/18 11/26/18 Dose) Allergies Allergy/AdvReac Type Severity Reaction Status Date / Time lamotrigine [From Lamictal] Allergy Rash/Hives Verified 11/26/18 15:55 Review of Systems ROS Statement: Those systems with pertinent positive or pertinent negative responses have been documented in the HPI. ROS Other: All systems not noted in ROS Statement are negative. Past Medical History Past Medical History: No Reported History Additional Past Medical History / Comment(s): PCOS, infertility History of Any Multi-Drug Resistant Organisms: None Reported Past Surgical History: No Surgical Hx Reported Past Psychological History: Anxiety, Bipolar, Depression Smoking Status: Former smoker Past Alcohol Use History: None Reported Past Drug Use History: None Reported General Exam - General Exam Comments Initial Comments: General: The patient is awake and alert, in no distress, and does not appear acutely ill. Eye: Pupils are equal, round and reactive to light, extra-ocular movements are intact. No nystagmus. There is normal conjunctiva bilaterally. No signs of icterus. Ears, nose, mouth and throat: There are moist mucous membranes and no oral lesions. Neck: The neck is supple, there is no tenderness or JVD. Cardiovascular: There is a regular rate and rhythm. No murmur, rub or gallop is appreciated. Respiratory: Lungs are clear to auscultation, respirations are non-labored, breath sounds are equal. No wheezes, stridor, rales, or rhonchi. Gastrointestinal: No noted diaphoresis, jaundice, pallor, protecting postures or squirming. Symmetrical pigmentation of abdomen without signs of inflammation, [scars], or striae. Umbilicus mildline, inverted without swelling. No dilated veins. No noted abdominal distention. No visible masses. No peristalsis, aortic pulsations , or ventral hernia. Bowel sounds audible in all 4 quadrants, unremarkable. Significant tenderness to the left lower quadrant. Mild guarding. Spleen edge, right and left kidney not palpable. Superior bladder margin non-tender. Special Testing: Negative Grannis, Rovsing, McBurney, Kana, cutaneous hyperesthesia. Iliopsoas and obturator tests negative bilaterally. Negative Heel Jar test/ jose alberto sign. No CVA tenderness. Digital rectal exam deferred.Negative swain turners or cullens sign Musculoskeletal: Normal ROM, no tenderness. Strength 5/5. Sensation intact. Pulses equal bilaterally 2+. Neurological: A&O x 3. CN II-XII intact, There are no obvious motor or sensory deficits. Coordination appears grossly intact. Speech is normal. Skin: Skin is warm and dry and no rashes or lesions are noted. Psychiatric: Cooperative, appropriate mood & affect, normal judgment. Limitations: no limitations Course Vital Signs 11/26/18 11/26/18 14:35 17:27 Temperature 98.1 F 98.4 F Pulse Rate 83 103 H Respiratory 18 18 Rate Blood Pressure 105/60 125/75 O2 Sat by Pulse 98 96 Oximetry Medical Decision Making - Medical Decision Making 28-year-old presenting with known ectopic with increasing left lower quadrant pain. Upon patient's arrival PROFESSOR OF MUSIC Dr. Paredes was contacted. She requested type and screen as well as urgent ultrasound. Ultrasound obtained revealing mild amount of free fluid in the posterior cul-de-sac. This was concerning given patient's history of ectopic, as well as increasing pain. Dr. Paredes was contacted with results. She scheduled surgery laparoscopically to performed at 6 PM. Patient remains hemodynamically stable. That was obtained for procedure. Patient was transferred to the operating room at 1816. - Lab Data Result diagrams: 11/26/18 15:15 11/26/18 15:15 Lab Results 11/26/18 11/26/18 11/26/18 Range/Units 15:15 15:15 15:15 WBC 7.6 (3.8-10.6) k/uL RBC 4.32 (3.80-5.40) m/uL Hgb 12.7 (11.4-16.0) gm/dL Hct 37.2 (34.0-46.0) % MCV 86.0 (80.0-100.0) fL MCH 29.4 (25.0-35.0) pg MCHC 34.2 (31.0-37.0) g/dL RDW 13.0 (11.5-15.5) % Plt Count 283 (150-450) k/uL Neutrophils % 74 % Lymphocytes % 19 % Monocytes % 3 % Eosinophils % 3 % Basophils % 0 % Neutrophils # 5.6 (1.3-7.7) k/uL Lymphocytes # 1.4 (1.0-4.8) k/uL Monocytes # 0.2 (0-1.0) k/uL Eosinophils # 0.3 (0-0.7) k/uL Basophils # 0.0 (0-0.2) k/uL Sodium 137 (137-145) mmol/L Potassium 4.0 (3.5-5.1) mmol/L Chloride 105 (98-107) mmol/L Carbon Dioxide 23 (22-30) mmol/L Anion Gap 9 mmol/L BUN 10 (7-17) mg/dL Creatinine 0.47 L (0.52-1.04) mg/dL Est GFR (CKD-EPI)AfAm >90 (>60 ml/min/1.73 sqM) Est GFR (CKD-EPI)NonAf >90 (>60 ml/min/1.73 sqM) Glucose 104 H (74-99) mg/dL Calcium 9.7 (8.4-10.2) mg/dL Total Bilirubin 0.5 (0.2-1.3) mg/dL AST 22 (14-36) U/L ALT 32 (9-52) U/L Alkaline Phosphatase 35 L (38-126) U/L Total Protein 6.9 (6.3-8.2) g/dL Albumin 4.2 (3.5-5.0) g/dL HCG, Quant 29302.6 mIU/mL Blood Type B Positive Blood Type Recheck No Antibody Screen NEGATIVE Spec Expiration Date 11/29/2018 - 2315 Disposition Clinical Impression: Ectopic , tubal Disposition: ADMITTED IP TO THIS [facility] Condition: Serious Is patient prescribed a controlled substance at d/c from ED?: No Time of Disposition: 17:40 Decision to Admit Reason: Admit from EC Decision Date: 11/26/18 Decision Time: 17:40
[2018-11-26] MEDS ORDERED: NALOXONE 0.4 MG/ML 1 ML VIAL IV PRN (17:38)
[2018-11-26] MEDS ORDERED: SODIUM CHLORIDE 0.9% 1,000 ML IV SCH (17:45)
[2018-11-26] MEDS ORDERED: PROPOFOL 10 MG/ML 20 ML VIAL IV ONE (18:46)
[2018-11-26] MEDS ORDERED: ePHEDrine SULFATE/0.9% NACL/PF 50 MG/5 ML SYRINGE IV ONE (18:46)
[2018-11-26] MEDS ORDERED: IV FLUID CONTINUATION 1,000 ML IV ONE (18:46)
[2018-11-26] MEDS ORDERED: GLYCOPYRROLATE 0.2 MG/ML 2 ML VIAL ONE (18:46)
[2018-11-26] MEDS ORDERED: LIDOCAINE 1% INJ 10MG/ML (20 ML MDV) ONE (18:46)
[2018-11-26] MEDS ORDERED: fentaNYL (PF) 50 MCG/ML 2 ML AMP ONE (18:46)
[2018-11-26] MEDS ORDERED: ROCURONIUM BROMIDE 10 MG/ML 10 ML VIAL IV ONE (18:46)
[2018-11-26] MEDS ORDERED: SUCCINYLCHOLINE CHLORIDE 100 MG/5 ML SYR IV ONE (18:46)
[2018-11-26] MEDS ORDERED: NEOSTIGMINE 1 MG/ML 10 ML VIAL ONE (18:46)
[2018-11-26] MEDS ORDERED: MIDAZOLAM 2 MG/2 ML VIAL ONE (18:46)
[2018-11-26] MEDS ORDERED: BUPIVACAINE (PF) 0.25% 30 ML VIAL SQ ONE (19:03)
[2018-11-26] MEDS ORDERED: LACTATED RINGERS 1,000 ML IV ONE (19:36)
[2018-11-26] MEDS: HYDROmorphone 1 MG/ML 1 ML SYRINGE IVP ONE ×2 (19:57→20:05)
--- NOTE | 2018-11-26 20:10 | P.OP ---
Date of Procedure: 11/26/18 Preoperative Diagnosis: 1. Ectopic , filling methotrexate Postoperative Diagnosis: 1. Ruptured ectopic in the left fallopian tube with hemoperitoneum Procedure(s) Performed: Laparoscopic left salpingectomy with removal of ectopic , evacuation of hemoperitoneum Anesthesia: JACKIE Surgeon: Lucila Paredes Estimated Blood Loss (ml): 100 IV fluids (ml): 1,500 Urine output (ml): 50 Pathology: other (Left fallopian tube with ectopic ) Condition: stable Disposition: PACU Operative Findings: Uterus sounded 9 cm. Normal uterus and normal bilateral ovaries, normal right fallopian tube, hemoperitoneum, enlarged left fallopian tube that was bleeding and ruptured at the fimbriated end. Description of Procedure: Patient was taken to the operating room where general anesthesia was obtained without difficulty. She was prepped and draped in normal sterile fashion in the dorsal lithotomy position, legs placed in the Richard stirrups. Bladder drained of all urine. Hanover speculum placed in the vagina and the anterior lip the cervix was grasped with single-tooth tenaculum. The uterus is sounded to 9 cm and the kroner manipulator was placed. Attention was then turned to the abdomen and gloves were changed. A 10 mm infraumbilical incision was made the scalpel and 10 mm optical trocar was placed under direct visualization. A 5 mm suprapubic Incision was made and a 5 mm optical trocar was placed under direct visualization. Survey of the pelvis revealed a dilated left fallopian tube ruptured at the fimbriated end and bleeding, normal uterus, normal bilateral ovaries, normal right fallopian tube. Another incision was made 10 mm on the right lower quadrant. A 10 mm trocar was placed under direct visualization. The fallopian tube was grasped with a Horacio and lifted. The 5 mm LigaSure was used to seal and cut across the mesosalpinx to remove the left fallopian tube. A 10 mm bag was introduced into the pelvis and the fallopian tube with ectopic were removed through the right lower quadrant port. The pelvis was copiously irrigated. Hemostasis was assured. All instruments removed from the abdomen and the vagina. The 10 mm infraumbilical incision was closed with 0 Vicryl and the fascial layer and then 4-0 Vicryl in a subcuticular fashion. The 5 mm incision was closed with 4-0 Vicryl in a subcuticular fashion. Patient tolerated procedure well, sponge and instrument counts correct 2 and she was taken to recovery room in stable condition.
[2018-11-26] MEDS ORDERED: Acetaminophen-Codeine 300-30mg TAB PO PRN (21:00)
[2018-11-26] MEDS ORDERED: diphenhydrAMINE 50 MG/ML 1 ML VIAL IVP PRN (21:00)
[2018-11-26] MEDS ORDERED: IBUPROFEN 600 MG TAB PO PRN (21:00)
[2018-11-26] MEDS ORDERED: METOCLOPRAMIDE 5 MG/ML 2 ML VIAL IVP PRN (21:00)
[2018-11-26] MEDS: SODIUM CHLORIDE 0.9% 1,000 ML IV SCH (21:06)
[2018-11-26 21:20] VITALS: BMI 24.5
[2018-11-26] MEDS: KETOROLAC 30 MG/ML 1 ML VIAL IVP PRN (21:41)
[2018-11-26] MEDS: ONDANSETRON 4 MG/2 ML VIAL IVP PRN (21:43)
[2018-11-26] MEDS: ZOLPIDEM 5 MG TAB PO PRN (22:38)
[2018-11-26] MEDS: SENNOSIDES-DOCUSATE SODIUM 1 EACH TAB PO SCH (22:43)
[2018-11-26] MEDS: metFORMIN 850 MG TAB PO SCH (22:43)
[2018-11-27] MEDS: Acetaminophen-Codeine 300-30mg TAB PO PRN ×3 (01:24→06:31)
[2018-11-27] MEDS: KETOROLAC 30 MG/ML 1 ML VIAL IVP PRN ×4 (02:42→22:52)
[2018-11-27] MEDS: SODIUM CHLORIDE 0.9% 1,000 ML IV SCH ×2 (02:46→20:18)
[2018-11-27] MEDS: metFORMIN 850 MG TAB PO SCH ×2 (07:58→21:13)
[2018-11-27] MEDS: SENNOSIDES-DOCUSATE SODIUM 1 EACH TAB PO SCH ×2 (07:58→20:17)
[2018-11-27 09:14] LABS: Basophils % (A) 0 %; Eosinophils # (A) 0.2 k/uL (0-0.7); Eosinophils % (A) 2 %; HCT 33.6 % (34.0-46.0); HGB 10.9 gm/dL (11.4-16.0); Lymphocytes # (A) 1.9 k/uL (1.0-4.8); Lymphocytes % (A) 26 %; MCH 28.5 pg (25.0-35.0); MCHC 32.3 g/dL (31.0-37.0); MCV 88.2 fL (80.0-100.0); Mean Platelet Volume 6.2; Monocytes # (A) 0.3 k/uL (0-1.0); Monocytes % (A) 4 %; Neutrophils % (A) 67 %; Platelet Count 254 k/uL (150-450); RBC 3.81 m/uL (3.80-5.40); RDW 13.2 % (11.5-15.5); WBC 7.4 k/uL (3.8-10.6)
--- NOTE | 2018-11-27 09:19 | P.PN ---
Progress Note - Text Progress Note Date: 11/27/18 S/P laparoscopic left salpingectomy with removal of ectopic, evacuation of hemoperitoneum. Postop day #1 Patient seen and examined at bedside. Her pain has not been well-controlled with the Tylenol 3 and the Toradol. She says it to 5 just sitting there and then when she gets up to move she screams out and pain. She is able to void without difficulty now passing flatus. Vital signs stable Heart regular rate and rhythm Lungs: Clear to auscultation bilaterally Abdomen: Incisions are clean, dry, intact and Steri-Strips in place. She is tender in the left lower quadrant where the operation was focused. She is mildly distended and has also on some all 4 quadrants. Extremities: Negative Homans sign Assessment 1. Status post laparoscopic left salpingectomy with removal of ectopic, evacuation of hemoperitoneum. Postop day #1 2. Postoperative painnot well controlled on Toradol and Tylenol 3 Plan 1. Change the Tylenol 3 to [place] 7.5/325 every 6 hours as needed, I also ordered Dilaudid for breakthrough pain 1 mg every 4 hours 2. Mylicon for gas pain 3. I encouraged Niecy to walk more today and use her incentive spirometer. 4. If her pain is controlled better later today she may be discharged home
[2018-11-27] MEDS: HYDROmorphone 1 MG/ML 1 ML SYRINGE IVP PRN ×2 (10:19→15:53)
[2018-11-27] MEDS: ONDANSETRON 4 MG/2 ML VIAL IVP PRN (10:19)
[2018-11-27] MEDS: SIMETHICONE 80 MG CHEWABLE PO PRN ×2 (11:40→20:19)
[2018-11-27] MEDS: HYDROcodone/APAP 7.5-325MG 1 EACH TAB PO PRN ×2 (13:12→20:17)
[2018-11-27] MEDS: ZOLPIDEM 5 MG TAB PO PRN (22:53)
[2018-11-28] MEDS: HYDROcodone/APAP 7.5-325MG 1 EACH TAB PO PRN (02:59)
[2018-11-28] MEDS: KETOROLAC 30 MG/ML 1 ML VIAL IVP PRN (05:08)
[2018-11-28] MEDS: ONDANSETRON 4 MG/2 ML VIAL IVP PRN (08:11)
[2018-11-28] MEDS: HYDROmorphone 1 MG/ML 1 ML SYRINGE IVP PRN (08:12)
--- NOTE | 2018-11-28 08:32 | P.DS ---
Providers Date of admission: 11/26/18 17:39 Expected date of discharge: 11/28/18 Attending physician: Lucila Paredes Primary care physician: Stated None - Discharge Diagnosis(es) (1) Ectopic Current Visit: Yes Status: Resolved (2) Status post laparoscopic procedure Current Visit: Yes Status: Acute Hospital Course: Patient was admitted with a ruptured ectopic and taken to the operating room for a laparoscopic procedure. She underwent laparoscopic left salpingectomy with removal of ectopic and hemoperitoneum. Postoperatively she was still in significant amount of pain control that she could not do with this at home. She was requiring IV pain medicine. Postoperative day #2 she is ambulating and voiding without difficulty, passing flatus, tolerating regular diet, pain is better controlled. She'll be discharged home postoperative day # 2 in stable condition to follow-up with me in 2 weeks. Patient Condition at Discharge: Serious Plan - Discharge Summary Discharge Rx Participant: No New Discharge Prescriptions: New HYDROcodone/APAP 7.5-325MG [Triplett 7.5-325] 1 each PO Q4-6H PRN #18 tab PRN Reason: Pain Ibuprofen [Motrin] 600 mg PO Q6HR PRN #30 tab PRN Reason: Mild Discomfort Continue metFORMIN HCL [Glucophage] 850 mg PO BID No Action Methotrexate Injection(Unknown Dose) 1 injection SQ ONCE Discharge Medication List metFORMIN HCL [Glucophage] 850 mg PO BID 11/09/18 [History] Methotrexate Injection(Unknown Dose) 1 injection SQ ONCE 11/26/18 [History] HYDROcodone/APAP 7.5-325MG [Triplett 7.5-325] 1 each PO Q4-6H PRN #18 tab 11/28/18 [Rx] Ibuprofen [Motrin] 600 mg PO Q6HR PRN #30 tab 11/28/18 [Rx] Follow up Appointment(s)/Referral(s): None,Stated [Primary Care Provider] - 1-2 days Lucila Paredes DO [Doctor of Osteopathic Medicine] - 2 Weeks Discharge Disposition: HOME SELF-CARE
[2018-11-28] MEDS: metFORMIN 850 MG TAB PO SCH (08:47)
[2018-11-28] MEDS: SENNOSIDES-DOCUSATE SODIUM 1 EACH TAB PO SCH (08:47)
[2018-11-28 09:05] VITALS: BP 113/77; PULSE 85; RESP 16; TEMP 98.1
== END 2018-11-28 10:08 | disposition home or self-care (01) | DRG 817 ==
LOC: EC 14:31 → 4FBP 17:39 → 4MS4W 18:52 → 6PED 11-27 10:49
PROVIDERS: ADMIT Obstetrics & Gynecology; ATTEND Obstetrics & Gynecology
PROC: 0UT64ZZ Resection of Left Fallopian Tube, Percutaneous Endoscopic Approach (ICD-10-PCS; 2018-11-26)
PROC: 0W9G4ZZ Drainage of Peritoneal Cavity, Percutaneous Endoscopic Approach (ICD-10-PCS; 2018-11-26)
PROC: 10T24ZZ Resection of Products of Conception, Ectopic, Percutaneous Endoscopic Approach (ICD-10-PCS; principal; 2018-11-26 18:08)
DX: O00.102 Left tubal pregnancy without intrauterine pregnancy (principal); K66.1 Hemoperitoneum; O24.911 Unspecified diabetes mellitus in pregnancy, first trimester; O08.9 Unspecified complication following an ectopic and molar pregnancy; O99.341 Other mental disorders complicating pregnancy, first trimester; F41.9 Anxiety disorder, unspecified; F31.9 Bipolar disorder, unspecified; O99.281 Endocrine, nutritional and metabolic diseases complicating pregnancy, first trimester; E28.2 Polycystic ovarian syndrome; O09.01 Supervision of pregnancy with history of infertility, first trimester; Z87.891 Personal history of nicotine dependence
CPT/HCPCS: 36415; 76801; 76817; 80053; 84702; 85025; 86850; 86900; 86901; 88305; 96361; 96374; 96375; 99285

== ENCOUNTER → 2018-11-26 | Outpatient (CLI) | payer BC | END | disposition home or self-care (01) | LOC: LABWHC1 10:16 | PROVIDERS: ATTEND Obstetrics & Gynecology | DX: O00.90 Unspecified ectopic pregnancy without intrauterine pregnancy (principal); Z3A.00 Weeks of gestation of pregnancy not specified | CPT/HCPCS: 36415; 84702 ==

== ENCOUNTER 2019-06-01 04:20 | Emergency (ER) | payer BC ==
[2019-06-01 04:39] VITALS: BP 129/87; PULSE 109; RESP 19; TEMP 99.1
[2019-06-01] MEDS ORDERED: METOCLOPRAMIDE 5 MG/ML 2 ML VIAL IVP STA (05:27)
[2019-06-01 05:31] LABS: Basophils % (A) 0 %; Eosinophils # (A) 0.2 k/uL (0-0.7); Eosinophils % (A) 2 %; HCT 37.7 % (34.0-46.0); HGB 12.6 gm/dL (11.4-16.0); Lymphocytes # (A) 0.8 k/uL (1.0-4.8); Lymphocytes % (A) 7 %; MCH 28.2 pg (25.0-35.0); MCHC 33.3 g/dL (31.0-37.0); MCV 84.7 fL (80.0-100.0); Monocytes # (A) 0.4 k/uL (0-1.0); Monocytes % (A) 3 %; Neutrophils % (A) 88 %; Platelet Count 241 k/uL (150-450); RBC 4.45 m/uL (3.80-5.40); RDW 14.4 % (11.5-15.5); WBC 11.4 k/uL (3.8-10.6)
[2019-06-01 05:32] LABS: Appearance,Urine Cloudy (Clear); Bilirubin,Urine Negative (Negative); Blood,Urine Negative (Negative); Color,Urine Yellow; Glucose,Urine (UA) Negative (Negative); Ketones,Urine Negative (Negative); Leukocyte Esterase,Urine Trace (Negative); Mucus,Urine Occasional /hpf; Nitrite,Urine Negative (Negative); PH, Urine 5.5 (5.0-8.0); Protein,Urine Trace (Negative); RBC,Urine 1 /hpf (0-5); Specific Gravity,Urine 1.026 (1.001-1.035); Squamous Epithelial Cell,Urine 9 /hpf (0-4); Urobilinogen,Urine <2.0 mg/dL (<2.0); WBC,Urine 1 /hpf (0-5)
[2019-06-01] MEDS ORDERED: DEXTROSE 5%-0.45% NACL 1,000 ML IV ONE (05:39)
[2019-06-01 05:40] LABS: ALT 13 U/L (9-52); AST 16 U/L (14-36); African American GFR (CKD) >90 (>60 ml/min/1.73 sqM); Albumin 3.5 g/dL (3.5-5.0); Alkaline Phosphatase 52 U/L (38-126); Amylase 54 U/L (30-110); Anion Gap 5 mmol/L; Blood Urea Nitrogen 9 mg/dL (7-17); Carbon Dioxide 22 mmol/L (22-30); Chloride 107 mmol/L (98-107); Glucose 106 mg/dL (74-99); Non-African American GFR(CKD) >90 (>60 ml/min/1.73 sqM); Potassium 3.7 mmol/L (3.5-5.1); Sodium 134 mmol/L (137-145); Total Bilirubin 0.3 mg/dL (0.2-1.3); Total Protein 6.2 g/dL (6.3-8.2)
--- NOTE | 2019-06-01 06:40 | ED ---
Abdominal Pain HPI - General Chief Complaint: Abdominal Pain Stated Complaint: 14 wks preg, NVD Time Seen by Provider: 06/01/19 04:59 Source: patient Mode of arrival: ambulatory Limitations: no limitations - History of Present Illness MD Complaint: abdominal pain -: hour(s) Location: periumbilical Radiation: none Migration to: no migration Severity: moderate Quality: cramping Consistency: intermittent Improves With: nothing Worsens With: nothing Associated Symptoms: nausea, diarrhea - Related Data Home Medications Medication Instructions Recorded Confirmed metFORMIN HCL [Glucophage] 850 mg PO BID 11/09/18 11/26/18 Methotrexate Injection(Unknown 1 injection SQ ONCE 11/26/18 11/26/18 Dose) Previous Rx's Medication Instructions Recorded HYDROcodone/APAP 7.5-325MG [Roach 1 each PO Q4-6H PRN #18 tab 11/28/18 7.5-325] Ibuprofen [Motrin] 600 mg PO Q6HR PRN #30 tab 11/28/18 Allergies Allergy/AdvReac Type Severity Reaction Status Date / Time lamotrigine [From Lamictal] Allergy Rash/Hives Verified 11/26/18 15:55 Review of Systems ROS Statement: Those systems with pertinent positive or pertinent negative responses have been documented in the HPI. ROS Other: All systems not noted in ROS Statement are negative. Constitutional: Denies: fever, chills Respiratory: Denies: cough, dyspnea Cardiovascular: Denies: chest pain, palpitations, syncope Gastrointestinal: Reports: abdominal pain, nausea, diarrhea. Denies: vomiting, constipation, hematemesis, melena, hematochezia Genitourinary: Denies: dysuria, hematuria Musculoskeletal: Denies: back pain Skin: Denies: rash Neurological: Denies: headache, weakness, numbness Past Medical History Past Medical History: No Reported History Additional Past Medical History / Comment(s): PCOS, infertility, ectopic . History of Any Multi-Drug Resistant Organisms: None Reported Past Surgical History: No Surgical Hx Reported Additional Past Surgical History / Comment(s): tubes in ears as a child, left tube removed. Past Anesthesia/Blood Transfusion Reactions: Postoperative Nausea & Vomiting (PONV) Past Psychological History: Anxiety, Bipolar, Depression Smoking Status: Former smoker Past Alcohol Use History: None Reported Past Drug Use History: None Reported - Past Family History Mother Family Medical History: Cancer Additional Family Medical History / Comment(s): stage 3 lung ca, brain aneursym Father Family Medical History: Myocardial Infarction ([place]) General Exam Limitations: no limitations General appearance: alert, in no apparent distress Head exam: Present: atraumatic, normocephalic Eye exam: Present: normal appearance. Absent: scleral icterus, conjunctival injection ENT exam: Present: normal oropharynx Neck exam: Present: normal inspection Respiratory exam: Present: normal lung sounds bilaterally. Absent: respiratory distress, wheezes, rales, rhonchi, stridor Cardiovascular Exam: Present: regular rate, normal rhythm, normal heart sounds. Absent: systolic murmur, diastolic murmur, rubs, gallop GI/Abdominal exam: Present: soft. Absent: distended, tenderness, guarding, rebound, rigid, mass, pulsatile mass, hernia Extremities exam: Present: normal inspection, normal capillary refill. Absent: pedal edema, calf tenderness Back exam: Present: normal inspection. Absent: CVA tenderness (R), CVA tenderness (L) Neurological exam: Present: alert Skin exam: Present: warm, dry, intact, normal color. Absent: rash Course Vital Signs 06/01/19 04:34 Temperature 99.1 F Pulse Rate 109 H Respiratory 19 Rate Blood Pressure 129/87 O2 Sat by Pulse 98 Oximetry Medical Decision Making - Medical Decision Making Patient is 29-year-old woman presenting with abdominal pain, nausea, and episode of diarrhea. The patient's abdominal exam is benign with no findings suggestive of surgical condition. She is feeling better following medication. Discussed appropriate further care and follow-up. Discussed return parameters. - Lab Data Result diagrams: 06/01/19 05:20 06/01/19 05:20 Lab Results 06/01/19 06/01/19 06/01/19 Range/Units 05:20 05:20 05:20 WBC 11.4 H (3.8-10.6) k/uL RBC 4.45 (3.80-5.40) m/uL Hgb 12.6 (11.4-16.0) gm/dL Hct 37.7 (34.0-46.0) % MCV 84.7 (80.0-100.0) fL MCH 28.2 (25.0-35.0) pg MCHC 33.3 (31.0-37.0) g/dL RDW 14.4 (11.5-15.5) % Plt Count 241 (150-450) k/uL Neutrophils % 88 % Lymphocytes % 7 % Monocytes % 3 % Eosinophils % 2 % Basophils % 0 % Neutrophils # 10.0 H (1.3-7.7) k/uL Lymphocytes # 0.8 L (1.0-4.8) k/uL Monocytes # 0.4 (0-1.0) k/uL Eosinophils # 0.2 (0-0.7) k/uL Basophils # 0.0 (0-0.2) k/uL Sodium 134 L (137-145) mmol/L Potassium 3.7 (3.5-5.1) mmol/L Chloride 107 (98-107) mmol/L Carbon Dioxide 22 (22-30) mmol/L Anion Gap 5 mmol/L BUN 9 (7-17) mg/dL Creatinine 0.42 L (0.52-1.04) mg/dL Est GFR (CKD-EPI)AfAm >90 (>60 ml/min/1.73 sqM) Est GFR (CKD-EPI)NonAf >90 (>60 ml/min/1.73 sqM) Glucose 106 H (74-99) mg/dL Calcium 9.0 (8.4-10.2) mg/dL Total Bilirubin 0.3 (0.2-1.3) mg/dL AST 16 (14-36) U/L ALT 13 (9-52) U/L Alkaline Phosphatase 52 (38-126) U/L Total Protein 6.2 L (6.3-8.2) g/dL Albumin 3.5 (3.5-5.0) g/dL Amylase 54 (30-110) U/L Lipase 91 (23-300) U/L Urine Color Urine Appearance (Clear) Urine pH (5.0-8.0) Ur Specific [place] (1.001-1.035) Urine Protein (Negative) Urine Glucose (UA) (Negative) Urine Ketones (Negative) Urine Blood (Negative) Urine Nitrite (Negative) Urine Bilirubin (Negative) Urine Urobilinogen (<2.0) mg/dL Ur Leukocyte Esterase (Negative) Urine RBC (0-5) /hpf Urine WBC (0-5) /hpf Ur Squamous Epith Cells (0-4) /hpf Urine Mucus (None) /hpf Urine HCG, Qual Detected (Not Detectd) 06/01/19 Range/Units 05:20 WBC (3.8-10.6) k/uL RBC (3.80-5.40) m/uL Hgb (11.4-16.0) gm/dL Hct (34.0-46.0) % MCV (80.0-100.0) fL MCH (25.0-35.0) pg MCHC (31.0-37.0) g/dL RDW (11.5-15.5) % Plt Count (150-450) k/uL Neutrophils % % Lymphocytes % % Monocytes % % Eosinophils % % Basophils % % Neutrophils # (1.3-7.7) k/uL Lymphocytes # (1.0-4.8) k/uL Monocytes # (0-1.0) k/uL Eosinophils # (0-0.7) k/uL Basophils # (0-0.2) k/uL Sodium (137-145) mmol/L Potassium (3.5-5.1) mmol/L Chloride (98-107) mmol/L Carbon Dioxide (22-30) mmol/L Anion Gap mmol/L BUN (7-17) mg/dL Creatinine (0.52-1.04) mg/dL Est GFR (CKD-EPI)AfAm (>60 ml/min/1.73 sqM) Est GFR (CKD-EPI)NonAf (>60 ml/min/1.73 sqM) Glucose (74-99) mg/dL Calcium (8.4-10.2) mg/dL Total Bilirubin (0.2-1.3) mg/dL AST (14-36) U/L ALT (9-52) U/L Alkaline Phosphatase (38-126) U/L Total Protein (6.3-8.2) g/dL Albumin (3.5-5.0) g/dL Amylase (30-110) U/L Lipase (23-300) U/L Urine Color Yellow Urine Appearance Cloudy H (Clear) Urine pH 5.5 (5.0-8.0) Ur Specific [place] 1.026 (1.001-1.035) Urine Protein Trace H (Negative) Urine Glucose (UA) Negative (Negative) Urine Ketones Negative (Negative) Urine Blood Negative (Negative) Urine Nitrite Negative (Negative) Urine Bilirubin Negative (Negative) Urine Urobilinogen <2.0 (<2.0) mg/dL Ur Leukocyte Esterase Trace H (Negative) Urine RBC 1 (0-5) /hpf Urine WBC 1 (0-5) /hpf Ur Squamous Epith Cells 9 H (0-4) /hpf Urine Mucus Occasional H (None) /hpf Urine HCG, Qual (Not Detectd) Disposition Clinical Impression: Diarrhea Disposition: HOME SELF-CARE Condition: Fair Instructions (If sedation given, give patient instructions): Acute Diarrhea (ED) Is patient prescribed a controlled substance at d/c from ED?: No Referrals: None,Stated [Primary Care Provider] - 1-2 days
== END 2019-06-01 07:02 | disposition home or self-care (01) ==
LOC: EC 04:20
DX: O99.89 Other specified diseases and conditions complicating pregnancy, childbirth and the puerperium (principal); R19.7 Diarrhea, unspecified; R11.0 Nausea; R10.33 Periumbilical pain; Z3A.14 14 weeks gestation of pregnancy; Z79.84 Long term (current) use of oral hypoglycemic drugs; Z87.891 Personal history of nicotine dependence; Z88.8 Allergy status to other drugs, medicaments and biological substances
CPT/HCPCS: 36415; 80053; 82150; 83690; 85025; 81001; 81025; 99284; 96374; 96361; J2765

== ENCOUNTER 2019-08-10 16:14 | Outpatient (CLI) | payer BC ==
[2019-08-10 16:56] VITALS: BP 122/59; PULSE 90; RESP 16; TEMP 97.6
--- NOTE | 2019-08-11 10:19 | P.MSEPDOC ---
Presenting Problems - Arrival Data Date of Arrival on Unit: 08/10/19 Time of Arrival on Unit: 16:14 Mode of Transport: Ambulatory - Complaint OB-Reason for Admission/Chief Complaint: Rule Out PROM Comment: "Wet" underwear throughout the day Medical History - Information : 5 Para: 2 Term: 2 : 0 Abortions: Spontaneous or Elective: 2 Number of Living Children: 2 - Gestational Age Gestational Age by KARIME (wks/days): 24 Weeks and 4 Days Review of Systems - Review of Systems Constitutional: No problems Breast: No problems ENT: No problems Cardiovascular: No problems Respiratory: No problems Gastrointestinal: No problems Genitourinary: No problems Musculoskeletal: No problems Neurological: No problems Skin: No problems Vital Signs - Temperature Temperature: 97.6 F Temperature Source: Temporal Artery Scan - Pulse Right Sitting Brachial Pulse Rate: 90 Pulse Assessment Method: Automatic Cuff - Respirations Respiratory Rate: 16 Oxygen Delivery Method: Room Air O2 Sat by Pulse Oximetry: 97 - Blood Pressure Right Arm Sitting Blood Pressure: 122/59 Blood Pressure Mean: 80 Blood Pressure Source: Automatic Cuff Medical Screen Scoring (Pre) - Cervical Exam Dilation: Exam Deferred Effacement: Exam Deferred Membranes: Intact - Uterine Contractions Frequency: N/A Duration: N/A Intensity: N/A - Maternal Vital Signs Maternal Temperature: N/A Maternal Blood Pressure: N/A Signs of Preeclampsia: N/A - Maternal Trauma Maternal Trauma: N/A - Assessment - Baby A Baseline FHR: 150 Heart Rate - NICHD Category: Category I (Normal) = 0 - Total Score - Baby A Total Score - Baby A: 0 - Total Score - Baby B Total Score - Baby B: 0 - Total Score - Baby C Total Score - Baby C: 0 - Level of Risk - Baby A Level of Risk - Baby A: Low (0-5) - Level of Risk - Baby B Level of Risk - Baby B: Low (0-5) - Level of Risk - Baby C Level of Risk - Baby C: Low (0-5) Physician Notification (Pre) - Physician Notified Physician Notified Date: 08/10/19 Physician Notified Time: 16:48 Physician/Practitioner Notifed:: Carey Spoke With: Carey New Order Received: Yes - Notification Comment Comment: Splisa c\\Dr. Patino, advsd , 24 02/17, c/o damp underwear today, intercourse within 24 hours, amnisure negative, no fluid noted with sterile spec exam. States to follow up as scheduled. Disposition - Disposition OB Disposition: Discharge to home, Written follow up instructions reviewed Discharge Date: 08/10/19 Discharge Time: 16:55 I agree with the RN Medical Screening Exam: Yes Risk & Benefit of care provided described in d/c instruction: Yes Diagnosis: RELATED CONDITIONS, UNSPECIFIED, SECOND TRIMESTER
== END 2019-08-10 16:55 | disposition home or self-care (01) ==
LOC: FBPOP 16:14
PROVIDERS: ATTEND Obstetrics & Gynecology
DX: O26.92 Pregnancy related conditions, unspecified, second trimester (principal); Z3A.24 24 weeks gestation of pregnancy
CPT/HCPCS: 84112; 99213

== ENCOUNTER → 2019-10-16 | Outpatient (CLI) | payer BC ==
[2019-10-16 20:43] VITALS: BP 127/70; PULSE 120; RESP 16; TEMP 99
--- NOTE | 2019-10-17 05:46 | P.MSEPDOC ---
Presenting Problems - Arrival Data Date of Arrival on Unit: 10/16/19 Time of Arrival on Unit: 12:00 Mode of Transport: Ambulatory - Complaint OB-Reason for Admission/Chief Complaint: Rule Out PROM Medical History - Information : 5 Para: 2 Term: 2 : 0 Abortions: Spontaneous or Elective: 2 Number of Living Children: 2 - Gestational Age Gestational Age by KARIME (wks/days): 34 Weeks and 1 Days - History Comment: pt presents to triage from Dr Paredes's office with orders for continued. monitoring and amnisure due to varible decels during nst at office and complaints of. leaking of clear for approx last 3 days Review of Systems - Review of Systems Constitutional: No problems Breast: No problems ENT: No problems Cardiovascular: No problems Respiratory: No problems Gastrointestinal: No problems Genitourinary: No problems Musculoskeletal: No problems Neurological: No problems Skin: No problems Vital Signs - Temperature Temperature: 99 F Temperature Source: Oral - Pulse Right Pulse Rate: 120 Pulse Assessment Method: Automatic Cuff - Respirations Respiratory Rate: 16 Oxygen Delivery Method: Room Air O2 Sat by Pulse Oximetry: 99 - Blood Pressure Right Arm Blood Pressure: 127/70 Blood Pressure Mean: 89 Blood Pressure Source: Automatic Cuff Medical Screen Scoring (Pre) - Cervical Exam Dilation: Exam Deferred Effacement: Exam Deferred Membranes: Intact - Uterine Contractions Frequency: N/A Duration: N/A Intensity: N/A - Maternal Vital Signs Maternal Temperature: N/A Maternal Blood Pressure: N/A Signs of Preeclampsia: N/A Maternal Respirations: N/A - Maternal Trauma Maternal Trauma: N/A - Assessment - Baby A Baseline FHR: 140 Heart Rate - NICHD Category: Category I (Normal) = 0 NST: Reactive Position: N/A Station: N/A - Total Score - Baby A Total Score - Baby A: 0 - Total Score - Baby B Total Score - Baby B: 0 - Total Score - Baby C Total Score - Baby C: 0 - Level of Risk - Baby A Level of Risk - Baby A: Low (0-5) - Level of Risk - Baby B Level of Risk - Baby B: Low (0-5) - Level of Risk - Baby C Level of Risk - Baby C: Low (0-5) Physician Notification (Pre) - Physician Notified Physician Notified Date: 10/16/19 Physician Notified Time: 13:05 New Order Received: Yes - Notification Comment Comment: Dr Paredes updated with negative amnisure, temp 99. maternal heart rate elevated. 1teens. pts mom passed last week and pt is under a lot of stress. also notified of. clear vaginal discharge with slightly fishy odor. states pt may discharge home. keep. all scheduled appointments, may take plain tylenol for mild temp. call or come back. if unable to keep temp under 100.4 with Tylenol or feels worse Disposition - Disposition OB Disposition: Discharge to home Discharge Date: 10/16/19 Discharge Time: 13:05 I agree with the RN Medical Screening Exam: Yes Risk & Benefit of care provided described in d/c instruction: Yes Diagnosis: CONGENITAL ABSENCE AND HYPOPLASIA OF UMBILICAL ARTERY
== END | disposition home or self-care (01) ==
LOC: FBPOP 11:55
PROVIDERS: ATTEND Obstetrics & Gynecology
DX: O35.8XX0 Maternal care for other (suspected) fetal abnormality and damage, not applicable or unspecified (principal); Z3A.34 34 weeks gestation of pregnancy
CPT/HCPCS: 59025; 84112; 99213

== ENCOUNTER 2019-10-30 10:42 | Outpatient (CLI) | payer BC ==
--- NOTE | 2019-11-13 00:37 | P.MSEPDOC ---
Presenting Problems - Arrival Data Date of Arrival on Unit: 10/30/19 Time of Arrival on Unit: 10:42 Mode of Transport: Ambulatory - Complaint OB-Reason for Admission/Chief Complaint: NST Medical History - Gestational Age Gestational Age by KARIME (wks/days): 36 Weeks and 1 Days Review of Systems - Review of Systems Constitutional: No problems Breast: No problems ENT: No problems Cardiovascular: No problems Respiratory: No problems Gastrointestinal: No problems Genitourinary: No problems Musculoskeletal: No problems Neurological: No problems Skin: No problems Physician Notification (Pre) - Notification Comment Comment: Dr. Paredes reviewed strip, pt to be d/c home, follow up as scheduled. Disposition - Disposition OB Disposition: Discharge to home, Written follow up instructions reviewed Discharge Date: 10/30/19 Discharge Time: 12:30 I agree with the RN Medical Screening Exam: Yes Physician's MSE Comment: She had an NST in the office for 2 vessel cord. That NST had some variables so she was sent for prolonged monitoring. The heart tone strip was category 1 here and she was sent home. Risk & Benefit of care provided described in d/c instruction: Yes Diagnosis: RELATED CONDITIONS, UNSPECIFIED, THIRD TRIMESTER
== END 2019-10-30 12:30 | disposition home or self-care (01) ==
LOC: FBPOP 10:42
PROVIDERS: ATTEND Obstetrics & Gynecology
DX: Z53.9 Procedure and treatment not carried out, unspecified reason (principal)

== ENCOUNTER 2019-11-26 05:55 | Inpatient (IN) | payer BC ==
[2019-11-26] MEDS ORDERED: CARBOPROST TROMETHAMINE 250 MCG/ML 1 ML AMP IM PRN (06:05)
[2019-11-26] MEDS ORDERED: OXYTOCIN 10 UNIT/ML 1 ML VIAL IM PRN (06:05)
[2019-11-26] MEDS ORDERED: TERBUTALINE 1 MG/ML VIAL SQ PRN (06:05)
[2019-11-26] MEDS ORDERED: METHYLERGONOVINE 0.2 MG/ML 1 ML AMP IM PRN (06:05)
[2019-11-26] MEDS ORDERED: LIDOCAINE 0.5% (PF) 5 MG/ML (50 ML SDV) SQ PRN (06:05)
[2019-11-26] MEDS ORDERED: OXYTOCIN 30 UNITS/500 ML NS 30 UNIT in SALINE 1 500ML.BAG IV SCH (06:15)
[2019-11-26 06:25] LABS: Basophils # (A) 0.1 k/uL (0-0.2); Basophils % (A) 1 %; Eosinophils # (A) 0.2 k/uL (0-0.7); Eosinophils % (A) 2 %; HCT 35.2 % (34.0-46.0); HGB 11.1 gm/dL (11.4-16.0); Hypochromasia Slight; Lymphocytes % (A) 21 %; MCH 25.8 pg (25.0-35.0); MCHC 31.6 g/dL (31.0-37.0); MCV 81.6 fL (80.0-100.0); Mean Platelet Volume 8.2; Monocytes # (A) 0.4 k/uL (0-1.0); Monocytes % (A) 4 %; Neutrophils # (A) 6.7 k/uL (1.3-7.7); Neutrophils % (A) 70 %; Platelet Count 257 k/uL (150-450); RBC 4.32 m/uL (3.80-5.40); RDW 15.7 % (11.5-15.5); WBC 9.6 k/uL (3.8-10.6)
[2019-11-26] MEDS: LACTATED RINGERS 1,000 ML IV SCH ×3 (06:38→14:17)
[2019-11-26] MEDS ORDERED: BUTORPHANOL 1 MG/ML 1 ML VIAL IV PRN (08:09)
[2019-11-26] MEDS ORDERED: ROPIVACAINE 5MG/ML 20ML VIAL ONE (13:40)
[2019-11-26] MEDS ORDERED: fentaNYL (PF) 50 MCG/ML 5 ML AMP ONE (13:40)
[2019-11-26] MEDS ORDERED: SODIUM CHLORIDE 0.9% 100 ML BAG ONE (13:40)
[2019-11-26] MEDS ORDERED: ROPIVACAINE 100 MG, fentaNYL (PF) 200 MCG in SODIUM CHLORIDE 0.9% 76 ML EPIDURAL ONE (14:26)
--- NOTE | 2019-11-26 17:05 | P.HPOB ---
History of Present Illness H&P Date: 11/26/19 Chief Complaint: Induction of labor 29-year-old G 5 P2 presents for induction of labor. Her cervix is 1 cm dilated, 70% effaced, and -3 station. She is salome irregularly. heart tones 130 with moderate variability and reactive. Review of Systems All systems: negative Constitutional: Denies chills, Denies fever Eyes: denies blurred vision, denies pain Ears, nose, mouth and throat: Denies headache, Denies sore throat Cardiovascular: Denies chest pain, Denies shortness of breath Respiratory: Denies cough Gastrointestinal: Denies abdominal pain, Denies diarrhea, Denies nausea, Denies vomiting Genitourinary: Denies dysuria, Denies hematuria Musculoskeletal: Denies myalgias Integumentary: Denies pruritus, Denies rash Neurological: Denies numbness, Denies weakness Psychiatric: Denies anxiety, Denies depression Endocrine: Denies fatigue, Denies weight change Past Medical History Past Medical History: No Reported History Additional Past Medical History / Comment(s): Obstetric history: She has had 2 vaginal deliveries, 1 spontaneous , 1 ectopic . This is her fifth and she's had care with me since the beginning of the . This baby has been followed for two-vessel cord. History of Any Multi-Drug Resistant Organisms: None Reported Past Surgical History: No Surgical Hx Reported Additional Past Surgical History / Comment(s): tubes in ears as a child, left tube removed. Past Anesthesia/Blood Transfusion Reactions: Postoperative Nausea & Vomiting (PONV) Past Psychological History: Anxiety, Bipolar, Depression Smoking Status: Never smoker Past Alcohol Use History: None Reported Past Drug Use History: None Reported - Past Family History Mother Family Medical History: Cancer Additional Family Medical History / Comment(s): stage 3 lung ca, brain aneursym Father History Unknown: Yes Family Medical History: Myocardial Infarction ([place]) Medications and Allergies Home Medications Medication Instructions Recorded Confirmed Type Pnv No.95/Ferrous Fum/Folic AC 1 each PO DAILY 08/10/19 10/30/19 History [ Multivitamin Tablet] Allergies Allergy/AdvReac Type Severity Reaction Status Date / Time lamotrigine [From Lamictal] Allergy Severe Rash/Hives Verified 11/26/19 06:05 Exam Osteopathic Statement: *. No significant issues noted on an osteopathic structural exam other than those noted in the History and Physical/Consult. Vital Signs Temp Pulse Resp BP Pulse Ox 11/26/19 06:04 98.2 F 115 H 16 113/68 97 Intake and Output 11/26/19 11/26/19 11/26/19 06:59 14:59 22:59 Output Total 150 Balance -150 Output: Urine 150 Other: Weight 87.997 kg Heart: Regular rate and rhythm Lungs: Clear to auscultation bilaterally Abdomen: Soft, nontender Extremities: Negative Homans sign Results Result Diagrams: 11/26/19 06:16 Abnormal Lab Results - Last 24 Hours (Table) 11/26/19 Range/Units 06:16 Hgb 11.1 L (11.4-16.0) gm/dL RDW 15.7 H (11.5-15.5) % Assessment and Plan (1) Normal labor Current Visit: Yes Status: Acute Code(s): O80 - ENCOUNTER FOR FULL-TERM UNCOMPLICATED DELIVERY; Z37.9 - OUTCOME OF DELIVERY, UNSPECIFIED SNOMED Code(s): 98871918 Plan: 1. Amniotomy and Pitocin for induction of labor 2. Anticipate normal vaginal delivery
[2019-11-26] MEDS ORDERED: WITCH HAZEL 1 EACH MED..PAD TOPICAL PRN (19:58)
[2019-11-26] MEDS ORDERED: LANOLIN CREAM 5 GM TUBE TOPICAL PRN (19:58)
[2019-11-26] MEDS ORDERED: HYDROCORTISONE 2.5% RECTAL CREAM 30 GM TUBE RECTAL PRN (19:58)
[2019-11-26] MEDS ORDERED: diphenhydrAMINE 50 MG CAP PO PRN (19:58)
[2019-11-26] MEDS ORDERED: diphenhydrAMINE 50 MG/ML 1 ML VIAL IVP PRN ×2 (19:58)
[2019-11-26] MEDS ORDERED: ZOLPIDEM 5 MG TAB PO PRN (19:58)
[2019-11-26] MEDS ORDERED: diphenhydrAMINE 25 MG CAP PO PRN (19:58)
[2019-11-26] MEDS ORDERED: BENZOCAINE/MENTHOL SPRAY 1 GM/SPRAY AEROSOL TOPICAL PRN (19:58)
[2019-11-26] MEDS ORDERED: OXYTOCIN 20 UNITS/1000 ML NS 1,000 ML IV SCH (20:00)
--- NOTE | 2019-11-26 20:04 | P.PROBDLV ---
Vaginal Delivery Note - . Vaginal Delivery Note: 29-year-old G 5 P2 presents for induction of labor. Her cervix is 1 cm dilated, 70% effaced, and -3 station. She is salome irregularly. heart tones 130 with moderate variability and reactive. Pitocin was started. Amniotomy was performed at 7:46 AM clear fluid noted. She progressed slowly throughout the day and received a few doses of Stadol. When she was 3 cm dilated she did get an epidural and was comfortable. Her cervix was completely dilated 1904. She pushed, and delivered a viable male over intact perineum under epidural anesthesia at 1937. Head delivered OA, anterior shoulder which was the right shoulder delivered gentle downward guidance for by posterior shoulder and rest of body. Nose and mouth bulb suctioned, cord clamped cut, infant placed on mother's abdomen. Apgars 9, 9, weight 9 pounds 7.5 ounces. Placenta delivered spontaneously, intact, with two-vessel cord. Vagina, cervix, and perineum were inspected. First-degree midline laceration was repaired with 3-0 Vicryl. Estimated blood loss 200 mL. Mother and baby in stable condition.
[2019-11-26] MEDS: IBUPROFEN 600 MG TAB PO PRN (20:17)
[2019-11-26] MEDS: SENNOSIDES-DOCUSATE SODIUM 1 EACH TAB PO SCH (22:19)
[2019-11-26] MEDS: ACETAMINOPHEN TAB 325 MG TAB PO PRN (22:31)
[2019-11-27] MEDS: IBUPROFEN 600 MG TAB PO PRN ×3 (01:44→20:23)
[2019-11-27] MEDS: HYDROcodone/APAP 7.5-325MG 1 EACH TAB PO PRN ×3 (03:46→18:44)
[2019-11-27] MEDS: SIMETHICONE 80 MG CHEWABLE PO PRN ×2 (05:14→23:02)
[2019-11-27 07:28] LABS: Basophils % (A) 0 %; Eosinophils # (A) 0.2 k/uL (0-0.7); Eosinophils % (A) 1 %; HCT 32.1 % (34.0-46.0); HGB 10.2 gm/dL (11.4-16.0); Hypochromasia Moderate; Lymphocytes % (A) 16 %; MCH 26.3 pg (25.0-35.0); MCHC 31.9 g/dL (31.0-37.0); MCV 82.7 fL (80.0-100.0); Mean Platelet Volume 8.2; Monocytes # (A) 0.5 k/uL (0-1.0); Monocytes % (A) 4 %; Neutrophils # (A) 9.7 k/uL (1.3-7.7); Neutrophils % (A) 77 %; Platelet Count 259 k/uL (150-450); RBC 3.88 m/uL (3.80-5.40); RDW 15.4 % (11.5-15.5); WBC 12.5 k/uL (3.8-10.6)
[2019-11-27] MEDS: SENNOSIDES-DOCUSATE SODIUM 1 EACH TAB PO SCH ×2 (07:45→20:23)
--- NOTE | 2019-11-27 08:31 | P.PNOBGVD ---
Subjective - Subjective Principal diagnosis: S/P NVD PPD #1 Interval history: Pt seen and examined. Denies N/V, F/C, CP, SOB, calf pain. She is complaining of hemorrhoid pain. Patient reports: Reports appetite normal, Reports voiding normally, Reports pain well controlled, Reports ambulating normally : doing well Objective - Latest Vital Signs Latest vital signs: Vital Signs Temp Pulse Resp BP Pulse Ox 11/27/19 04:00 98.2 F 95 18 108/60 95 11/27/19 00:00 98.4 F 117 H 18 109/55 98 11/26/19 21:53 114 H 18 118/60 96 11/26/19 21:23 98.6 F 115 H 18 125/57 96 11/26/19 20:53 99.9 F H 119 H 18 154/59 96 11/26/19 20:38 99.9 F H 128 H 18 124/60 96 11/26/19 20:23 127 H 18 120/55 11/26/19 20:08 98.7 F 127 H 17 123/66 98 11/26/19 19:53 100.7 F H 127 H 18 123/60 98 Intake and Output 11/26/19 11/27/19 11/27/19 22:59 06:59 14:59 Intake Total 1600 Output Total 150 Balance -150 1600 Intake: IV 1000 Oxytocin 20 Units/1000 ml 1000 Ns 1,000 ml @ Per Protocol IV .Q0M [facility] Rx#: [id number] Oral 600 Output: Urine 150 Other: # Voids 1 - Exam Lungs: bilateral: normal Chest: Normal S1, Normal S2 Extremities: Present: normal Abdomen: Present: normal appearance, soft Uterus: Present: normal, firm - Labs Labs: Abnormal Lab Results - Last 24 Hours (Table) 11/27/19 Range/Units 06:42 WBC 12.5 H (3.8-10.6) k/uL Hgb 10.2 L (11.4-16.0) gm/dL Hct 32.1 L (34.0-46.0) % Neutrophils # 9.7 H (1.3-7.7) k/uL Assessment and Plan (1) Normal labor Current Visit: Yes Status: Resolved Code(s): O80 - ENCOUNTER FOR FULL-TERM UNCOMPLICATED DELIVERY; Z37.9 - OUTCOME OF DELIVERY, UNSPECIFIED SNOMED Code(s): 49614710 (2) Normal vaginal delivery Current Visit: Yes Status: Acute Code(s): O80 - ENCOUNTER FOR FULL-TERM UNCOMPLICATED DELIVERY SNOMED Code(s): 82126572 Plan: 1. cont tiffanie care and pp care
[2019-11-27] MEDS: ACETAMINOPHEN TAB 325 MG TAB PO PRN ×2 (11:53→15:55)
[2019-11-28] MEDS: HYDROcodone/APAP 7.5-325MG 1 EACH TAB PO PRN ×2 (00:08→11:01)
[2019-11-28] MEDS: IBUPROFEN 600 MG TAB PO PRN (07:44)
[2019-11-28] MEDS: SENNOSIDES-DOCUSATE SODIUM 1 EACH TAB PO SCH (07:45)
[2019-11-28 09:14] VITALS: RESP 20
[2019-11-28 09:16] VITALS: BP 138/77; PULSE 90; TEMP 97.9
--- NOTE | 2019-11-28 09:42 | P.DS ---
Providers Date of admission: 11/26/19 05:55 Expected date of discharge: 11/28/19 Attending physician: Lucila Paredes Primary care physician: Stated None - Discharge Diagnosis(es) (1) Normal labor Current Visit: Yes Status: Resolved (2) Normal vaginal delivery Current Visit: Yes Status: Acute Hospital Course: Patient presented for induction of labor. She noted a normal vaginal delivery. Her course was complicated by hemorrhoids. She is quite uncomfortable so we are giving her spray and cream and ice packs. Kulm does help her to sleep at night and I will give her a few of those to go home with. She denies nausea, vomiting, chest pain, sugars per calf pain and her lochia is decreasing. She'll be discharged home day #2 in stable condition to follow-up with me in 6 weeks. Plan - Discharge Summary New Discharge Prescriptions: New Ibuprofen [Motrin] 600 mg PO Q6HR PRN #30 tab PRN Reason: Mild Pain Or Fever >= 100.5 HYDROcodone/APAP 7.5-325MG [Kulm 7.5-325] 1 each PO Q6H PRN #12 tab PRN Reason: Pain No Action Pnv No.95/Ferrous Fum/Folic AC [ Multivitamin Tablet] 1 each PO DAILY Discharge Medication List Pnv No.95/Ferrous Fum/Folic AC [ Multivitamin Tablet] 1 each PO DAILY 08/10/19 [History] HYDROcodone/APAP 7.5-325MG [Kulm 7.5-325] 1 each PO Q6H PRN #12 tab 11/28/19 [Rx] Ibuprofen [Motrin] 600 mg PO Q6HR PRN #30 tab 11/28/19 [Rx] Follow up Appointment(s)/Referral(s): Lucila Paredes DO [Doctor of Osteopathic Medicine] - 6 Weeks Discharge Disposition: HOME SELF-CARE
== END 2019-11-28 14:45 | disposition home or self-care (01) | DRG 806 ==
LOC: 4FBP 05:55
PROVIDERS: ADMIT Obstetrics & Gynecology; ATTEND Obstetrics & Gynecology
PROC: 10E0XZZ Delivery of Products of Conception, External Approach (ICD-10-PCS; principal; 2019-11-26)
PROC: 3E0R3NZ Introduction of Analgesics, Hypnotics, Sedatives into Spinal Canal, Percutaneous Approach (ICD-10-PCS; principal; 2019-11-26)
PROC: 0HQ9XZZ Repair Perineum Skin, External Approach (ICD-10-PCS; principal; 2019-11-26)
PROC: 10907ZC Drainage of Amniotic Fluid, Therapeutic from Products of Conception, Via Natural or Artificial Opening (ICD-10-PCS; principal; 2019-11-26)
PROC: 3E033VJ Introduction of Other Hormone into Peripheral Vein, Percutaneous Approach (ICD-10-PCS; principal; 2019-11-26)
PROC: 00HU33Z Insertion of Infusion Device into Spinal Canal, Percutaneous Approach (ICD-10-PCS; principal; 2019-11-26)
DX: O70.0 First degree perineal laceration during delivery (principal); O87.2 Hemorrhoids in the puerperium; Z37.0 Single live birth; Z80.1 Family history of malignant neoplasm of trachea, bronchus and lung; Z82.49 Family history of ischemic heart disease and other diseases of the circulatory system
CPT/HCPCS: 85025; 86850; 86900; 86901; 88307

== ENCOUNTER 2019-12-03 18:57 | Inpatient (IN) | payer BC ==
--- NOTE | 2019-12-03 19:24 | ED ---
Extremity Problem HPI <Nhan Bonner - Last Filed: 12/03/19 21:35> - General Source: patient, RN notes reviewed, old records reviewed Mode of arrival: ambulatory Limitations: no limitations <Nahed Green - Last Filed: 12/03/19 22:01> - General Chief complaint: Extremity Problem,Nontraumatic Stated complaint: foot/leg swollen Time Seen by Provider: 12/03/19 19:06 - History of Present Illness Initial comments: Patient is a 29-year-old female, . Patient reports that she is 7 days from vaginal delivery. Her [employer]MENT [employer]TER is Dr. Paredes. Patient reports that she started to have some right leg swelling and pain starting today. She also states that she's been having some tightness in her chest shortness of breath with laying down. Patient reports that she isn't having some pain in her breast but she figured out as normal related pain as well as some minor abdominal pain. Patient states that she has not had a history of blood clots before. Patient states that she has had no fevers or chills. She denies any coughing. (Nahed Green) - Related Data Home Medications Medication Instructions Recorded Confirmed Pnv No.95/Ferrous Fum/Folic AC 1 tab PO DAILY 08/10/19 12/03/19 [ Multivitamin Tablet] HYDROcodone/APAP 7.5-325MG [[place] 1 tab PO Q6H PRN 12/03/19 12/03/19 7.5-325] Luis Milk 2 tab PO DAILY 12/03/19 12/03/19 Previous Rx's Medication Instructions Recorded Ibuprofen [Motrin] 600 mg PO Q6HR PRN #30 tab 11/28/19 Allergies Allergy/AdvReac Type Severity Reaction Status Date / Time lamotrigine [From Lamictal] Allergy Severe Rash/Hives Verified 12/03/19 21:48 Review of Systems ROS Other: All systems not noted in ROS Statement are negative. <Nhan Bonner - Last Filed: 12/03/19 21:35> ROS Other: All systems not noted in ROS Statement are negative. <Nahed Green - Last Filed: 12/03/19 22:01> ROS Statement: Those systems with pertinent positive or pertinent negative responses have been documented in the HPI. Past Medical History Past Medical History: No Reported History Additional Past Medical History / Comment(s): Obstetric history: She has had 2 vaginal deliveries, 1 spontaneous , 1 ectopic . This is her fifth and she's had care with me since the beginning of the . This baby has been followed for two-vessel cord. History of Any Multi-Drug Resistant Organisms: None Reported Past Surgical History: No Surgical Hx Reported Additional Past Surgical History / Comment(s): tubes in ears as a child, left tube removed. Past Anesthesia/Blood Transfusion Reactions: Postoperative Nausea & Vomiting (PONV) Past Psychological History: Anxiety, Bipolar, Depression Smoking Status: Never smoker Past Alcohol Use History: None Reported Past Drug Use History: None Reported - Past Family History Mother Family Medical History: Cancer Additional Family Medical History / Comment(s): stage 3 lung ca, brain aneursym Father History Unknown: Yes Family Medical History: Myocardial Infarction ([place]) <Nahed Green - Last Filed: 12/03/19 22:01> General Exam Limitations: no limitations General appearance: alert, in no apparent distress Head exam: Present: atraumatic, normocephalic, normal inspection Eye exam: Present: normal appearance, PERRL, EOMI. Absent: scleral icterus, conjunctival injection, periorbital swelling ENT exam: Present: normal exam, mucous membranes moist Neck exam: Present: normal inspection. Absent: tenderness, meningismus, lymphadenopathy Respiratory exam: Present: normal lung sounds bilaterally. Absent: respiratory distress, wheezes, rales, rhonchi, stridor Cardiovascular Exam: Present: regular rate, normal rhythm, normal heart sounds. Absent: systolic murmur, diastolic murmur, rubs, gallop, clicks GI/Abdominal exam: Present: soft, normal bowel sounds. Absent: distended, tenderness, guarding, rebound, rigid Extremities exam: Present: normal inspection, full ROM, normal capillary refill. Absent: tenderness, pedal edema, joint swelling, calf tenderness Right Knee exam: Present: normal inspection, full ROM Lower Leg exam: Present: normal inspection, full ROM Ankle exam: Present: swelling (Patient has 4+ pedal edema on the right lower extremity.). Absent: normal inspection, tenderness Foot/Toe exam: Present: normal inspection, full ROM Back exam: Present: normal inspection Neurological exam: Present: alert, oriented X3, CN II-XII intact Psychiatric exam: Present: normal affect, normal mood Skin exam: Present: warm, dry, intact, normal color. Absent: rash <Nahed Green - Last Filed: 12/03/19 22:01> - General Exam Comments Initial Comments: 29-year-old female. Alert and oriented. (Nahed Green) Course <Nhan Bonner - Last Filed: 12/03/19 21:35> Vital Signs 12/03/19 12/03/19 12/03/19 19:00 20:00 20:50 Temperature 98.2 F Pulse Rate 60 59 L 59 L Respiratory 22 Rate Blood Pressure 150/88 144/85 164/107 O2 Sat by Pulse 97 96 97 Oximetry 12/03/19 21:10 Temperature Pulse Rate 58 L Respiratory Rate Blood Pressure 156/77 O2 Sat by Pulse 96 Oximetry - Reevaluation(s) Reevaluation #1: 12/03/19 21:[address] Charles, covering for Dr. Paredes who would like patient admitted for suspected preeclampsia. He recommends magnesium 4 g push followed by 2 g per hour drip and he will evaluate the patient upstairs and adjust if needed at that point. (Nhan Bonner) Medical Decision Making - Lab Data Result diagrams: 12/03/19 19:28 12/03/19 19:28 <Nhan Bonner - Last Filed: 12/03/19 21:35> - Lab Data Result diagrams: 12/03/19 19:28 12/03/19 19:28 - Radiology Data Radiology results: report reviewed <Nahed Green - Last Filed: 12/03/19 22:01> - Medical Decision Making Patient is a 29-year-old female, 7 days , presents with right lower extremity swelling, some shortness of breath. She's had borderline blood pressures of the upper 150s over 100. Patient case was quickly discussed with Dr. Arevalo did attempt to page [employer]. Lab work was obtained. She had a Doppler ultrasound which is negative for DVT in the right leg. Due to the shortness of breath and elevated d-dimer we did do a CT angiogram which is negative for PE. She had mildly elevated liver enzymes, and a slightly elevated LDH. No protein in the urine. Patient's has not been initiated on antihypertensive at this time. I then discussed the case with Dr. Bonner who will discuss case with Dr. Charles. Recommend starting the Patient on 4 g of magnesium, and admitted to labor and delivery floor. Patient will receive 2 g an hour drip of magnesium. Patient was informed of these results and treatment plan. (Nahed Green) - Lab Data Lab Results 12/03/19 12/03/19 12/03/19 Range/Units 19:28 19:28 19:28 WBC 6.1 (3.8-10.6) k/uL RBC 4.20 (3.80-5.40) m/uL Hgb 10.8 L (11.4-16.0) gm/dL Hct 34.7 (34.0-46.0) % MCV 82.6 (80.0-100.0) fL MCH 25.8 (25.0-35.0) pg MCHC 31.2 (31.0-37.0) g/dL RDW 16.1 H (11.5-15.5) % Plt Count 325 (150-450) k/uL Neutrophils % 64 % Lymphocytes % 25 % Monocytes % 4 % Eosinophils % 4 % Basophils % 1 % Neutrophils # 3.9 (1.3-7.7) k/uL Lymphocytes # 1.5 (1.0-4.8) k/uL Monocytes # 0.2 (0-1.0) k/uL Eosinophils # 0.3 (0-0.7) k/uL Basophils # 0.1 (0-0.2) k/uL Hypochromasia Slight Anisocytosis Slight PT 10.5 (9.0-12.0) sec INR 1.0 (<1.2) APTT 22.7 (22.0-30.0) sec D-Dimer 8.15 H (<0.60) mg/L FEU Sodium 138 (137-145) mmol/L Potassium 4.3 (3.5-5.1) mmol/L Chloride 111 H (98-107) mmol/L Carbon Dioxide 22 (22-30) mmol/L Anion Gap 5 mmol/L BUN 16 (7-17) mg/dL Creatinine 0.63 (0.52-1.04) mg/dL Est GFR (CKD-EPI)AfAm >90 (>60 ml/min/1.73 sqM) Est GFR (CKD-EPI)NonAf >90 (>60 ml/min/1.73 sqM) Glucose 82 (74-99) mg/dL Uric Acid (3.7-7.4) mg/dL Calcium 8.5 (8.4-10.2) mg/dL Total Bilirubin 0.3 (0.2-1.3) mg/dL AST 36 (14-36) U/L ALT 52 H (4-34) U/L Alkaline Phosphatase 128 H (38-126) U/L Lactate Dehydrogenase 744 H (313-618) U/L Troponin I (0.000-0.034) ng/mL NT-Pro-B Natriuret Pep pg/mL Total Protein 5.7 L (6.3-8.2) g/dL Albumin 3.0 L (3.5-5.0) g/dL Urine Color Urine Appearance (Clear) Urine pH (5.0-8.0) Ur Specific [place] (1.001-1.035) Urine Protein (Negative) Urine Glucose (UA) (Negative) Urine Ketones (Negative) Urine Blood (Negative) Urine Nitrite (Negative) Urine Bilirubin (Negative) Urine Urobilinogen (<2.0) mg/dL Ur Leukocyte Esterase (Negative) Urine RBC (0-5) /hpf Urine WBC (0-5) /hpf Ur Squamous Epith Cells (0-4) /hpf Hyaline Casts (0-2) /lpf Urine Mucus (None) /hpf 12/03/19 12/03/19 12/03/19 Range/Units 19:28 19:28 19:28 WBC (3.8-10.6) k/uL RBC (3.80-5.40) m/uL Hgb (11.4-16.0) gm/dL Hct (34.0-46.0) % MCV (80.0-100.0) fL MCH (25.0-35.0) pg MCHC (31.0-37.0) g/dL RDW (11.5-15.5) % Plt Count (150-450) k/uL Neutrophils % % Lymphocytes % % Monocytes % % Eosinophils % % Basophils % % Neutrophils # (1.3-7.7) k/uL Lymphocytes # (1.0-4.8) k/uL Monocytes # (0-1.0) k/uL Eosinophils # (0-0.7) k/uL Basophils # (0-0.2) k/uL Hypochromasia Anisocytosis PT (9.0-12.0) sec INR (<1.2) APTT (22.0-30.0) sec D-Dimer (<0.60) mg/L FEU Sodium (137-145) mmol/L Potassium (3.5-5.1) mmol/L Chloride (98-107) mmol/L Carbon Dioxide (22-30) mmol/L Anion Gap mmol/L BUN (7-17) mg/dL Creatinine (0.52-1.04) mg/dL Est GFR (CKD-EPI)AfAm (>60 ml/min/1.73 sqM) Est GFR (CKD-EPI)NonAf (>60 ml/min/1.73 sqM) Glucose (74-99) mg/dL Uric Acid 5.7 (3.7-7.4) mg/dL Calcium (8.4-10.2) mg/dL Total Bilirubin (0.2-1.3) mg/dL AST (14-36) U/L ALT (4-34) U/L Alkaline Phosphatase (38-126) U/L Lactate Dehydrogenase (313-618) U/L Troponin I <0.012 (0.000-0.034) ng/mL NT-Pro-B Natriuret Pep 583 pg/mL Total Protein (6.3-8.2) g/dL Albumin (3.5-5.0) g/dL Urine Color Urine Appearance (Clear) Urine pH (5.0-8.0) Ur Specific [place] (1.001-1.035) Urine Protein (Negative) Urine Glucose (UA) (Negative) Urine Ketones (Negative) Urine Blood (Negative) Urine Nitrite (Negative) Urine Bilirubin (Negative) Urine Urobilinogen (<2.0) mg/dL Ur Leukocyte Esterase (Negative) Urine RBC (0-5) /hpf Urine WBC (0-5) /hpf Ur Squamous Epith Cells (0-4) /hpf Hyaline Casts (0-2) /lpf Urine Mucus (None) /hpf 12/03/19 Range/Units 19:30 WBC (3.8-10.6) k/uL RBC (3.80-5.40) m/uL Hgb (11.4-16.0) gm/dL Hct (34.0-46.0) % MCV (80.0-100.0) fL MCH (25.0-35.0) pg MCHC (31.0-37.0) g/dL RDW (11.5-15.5) % Plt Count (150-450) k/uL Neutrophils % % Lymphocytes % % Monocytes % % Eosinophils % % Basophils % % Neutrophils # (1.3-7.7) k/uL Lymphocytes # (1.0-4.8) k/uL Monocytes # (0-1.0) k/uL Eosinophils # (0-0.7) k/uL Basophils # (0-0.2) k/uL Hypochromasia Anisocytosis PT (9.0-12.0) sec INR (<1.2) APTT (22.0-30.0) sec D-Dimer (<0.60) mg/L FEU Sodium (137-145) mmol/L Potassium (3.5-5.1) mmol/L Chloride (98-107) mmol/L Carbon Dioxide (22-30) mmol/L Anion Gap mmol/L BUN (7-17) mg/dL Creatinine (0.52-1.04) mg/dL Est GFR (CKD-EPI)AfAm (>60 ml/min/1.73 sqM) Est GFR (CKD-EPI)NonAf (>60 ml/min/1.73 sqM) Glucose (74-99) mg/dL Uric Acid (3.7-7.4) mg/dL Calcium (8.4-10.2) mg/dL Total Bilirubin (0.2-1.3) mg/dL AST (14-36) U/L ALT (4-34) U/L Alkaline Phosphatase (38-126) U/L Lactate Dehydrogenase (313-618) U/L Troponin I (0.000-0.034) ng/mL NT-Pro-B Natriuret Pep pg/mL Total Protein (6.3-8.2) g/dL Albumin (3.5-5.0) g/dL Urine Color Yellow Urine Appearance Clear (Clear) Urine pH 5.5 (5.0-8.0) Ur Specific [place] 1.012 (1.001-1.035) Urine Protein Negative (Negative) Urine Glucose (UA) Negative (Negative) Urine Ketones Negative (Negative) Urine Blood Moderate H (Negative) Urine Nitrite Negative (Negative) Urine Bilirubin Negative (Negative) Urine Urobilinogen <2.0 (<2.0) mg/dL Ur Leukocyte Esterase Large H (Negative) Urine RBC 5 (0-5) /hpf Urine WBC 15 H (0-5) /hpf Ur Squamous Epith Cells 2 (0-4) /hpf Hyaline Casts 1 (0-2) /lpf Urine Mucus Rare H (None) /hpf 12/03/19 19:37 EKG shows marked sinus bradycardia, rightward axis. Abnormal EKG. Ventricular rate of 40 beats were minute. Was 154 ms. QS duration is 86 ms. QT QTc is 414/[address] elevation. (Nahed Green) - Radiology Data Chest x-ray shows some mild linear infiltrate atelectasis at the lung bases more the left side. No heart failure seen. CT PATRICK shows mild subsegmental atelectasis. No evidence of pulmonary able to. Borderline cardiomegaly. Venous Doppler is negative for DVT. (Nahed Green) Disposition <Nhan Bonner - Last Filed: 12/03/19 21:35> Is patient prescribed a controlled substance at d/c from ED?: No Time of Disposition: 22:01 <Nahed Green - Last Filed: 12/03/19 22:01> Clinical Impression: Preeclampsia Disposition: ADMITTED IP TO THIS HOSP Condition: Stable Referrals: Carmelo Watkins MD [Primary Care Provider] - 1-2 days
[2019-12-03 19:38] LABS: Anisocytosis Slight; Basophils # (A) 0.1 k/uL (0-0.2); Basophils % (A) 1 %; Eosinophils # (A) 0.3 k/uL (0-0.7); Eosinophils % (A) 4 %; HCT 34.7 % (34.0-46.0); HGB 10.8 gm/dL (11.4-16.0); Hypochromasia Slight; Lymphocytes # (A) 1.5 k/uL (1.0-4.8); Lymphocytes % (A) 25 %; MCH 25.8 pg (25.0-35.0); MCHC 31.2 g/dL (31.0-37.0); MCV 82.6 fL (80.0-100.0); Monocytes # (A) 0.2 k/uL (0-1.0); Monocytes % (A) 4 %; Neutrophils # (A) 3.9 k/uL (1.3-7.7); Neutrophils % (A) 64 %; Platelet Count 325 k/uL (150-450); RDW 16.1 % (11.5-15.5); WBC 6.1 k/uL (3.8-10.6)
[2019-12-03 19:44] LABS: Appearance,Urine Clear (Clear); Bilirubin,Urine Negative (Negative); Blood,Urine Moderate (Negative); Color,Urine Yellow; Glucose,Urine (UA) Negative (Negative); Hyaline Casts,Urine 1 /lpf (0-2); Ketones,Urine Negative (Negative); Leukocyte Esterase,Urine Large (Negative); Mucus,Urine Rare /hpf; Nitrite,Urine Negative (Negative); PH, Urine 5.5 (5.0-8.0); Protein,Urine Negative (Negative); RBC,Urine 5 /hpf (0-5); Specific Gravity,Urine 1.012 (1.001-1.035); Squamous Epithelial Cell,Urine 2 /hpf (0-4); Urobilinogen,Urine <2.0 mg/dL (<2.0); WBC,Urine 15 /hpf (0-5)
[2019-12-03 19:48] LABS: ALT 52 U/L (4-34); AST 36 U/L (14-36); African American GFR (CKD) >90 (>60 ml/min/1.73 sqM); Alkaline Phosphatase 128 U/L (38-126); Anion Gap 5 mmol/L; Blood Urea Nitrogen 16 mg/dL (7-17); Calcium 8.5 mg/dL (8.4-10.2); Carbon Dioxide 22 mmol/L (22-30); Chloride 111 mmol/L (98-107); Glucose 82 mg/dL (74-99); LDH 744 U/L (313-618); Non-African American GFR(CKD) >90 (>60 ml/min/1.73 sqM); Potassium 4.3 mmol/L (3.5-5.1); Sodium 138 mmol/L (137-145); Total Bilirubin 0.3 mg/dL (0.2-1.3); Total Protein 5.7 g/dL (6.3-8.2)
[2019-12-03 20:13] LABS: Partial Thromboplastin Time 22.7 sec (22.0-30.0); Prothrombin Time 10.5 sec (9.0-12.0)
[2019-12-03 20:14] LABS: D-Dimer 8.15 mg/L FEU (<0.60)
--- NOTE | 2019-12-03 20:38 | US ---
EXAMINATION TYPE: US venous doppler duplex LE RT DATE OF EXAM: 12/03/2019 8:27 PM COMPARISON: NONE CLINICAL HISTORY: 7 days post swelling. Right leg swelling x 4 days. 7 days post . No hx of DVT. Patient does not take any blood thinners. SIDE PERFORMED: Right TECHNIQUE: The lower extremity deep venous system is examined utilizing real time linear array sonog reza with graded compression, doppler sonography and color-flow sonography. VESSELS IMAGED: External Iliac Vein (EIV) Common Femoral Vein Deep Femoral Vein Greater Saphenous Vein * Femoral Vein Popliteal Vein Small Saphenous Vein * Proximal Calf Veins (* superficial vessels) Right Leg: No evidence of DVT at this time in veins imaged from prox calf veins to EIV. IMPRESSION: Negative exam. No evidence of deep venous thrombosis in the right leg.
--- NOTE | 2019-12-03 20:52 | CT ---
EXAMINATION TYPE: CT chest angio for PE DATE OF EXAM: 12/03/2019 COMPARISON: None HISTORY: elevated d-dimer CT DLP: 363.1 mGycm Automated exposure control for dose reduction was used. CONTRAST: Performed with IV Contrast, patient injected with 76cc mL of Isovue 370. Multiple axial sections were obtained from the thoracic inlet to the diaphragm with intravenous contr ast. There are 3-D post processed images. There is no mediastinal adenopathy. There are no hilar masses. Heart is top normal in size. There is no pericardial effusion. There is no pleural effusion. There is mild subsegmental atelectasis at the lung bases. There is no evidence of a pulmonary mass. Thoracic aorta is intact. There is no aneurysm or dissection. There is normal contrast opacification of the pulmonary arteries. There are no filling defects. The bony thorax is intact. IMPRESSION: There is mild subsegmental atelectasis at the lung bases. No evidence of pulmonary embolism. Borderli ne cardiomegaly.
--- NOTE | 2019-12-03 21:29 | XR ---
EXAMINATION TYPE: XR chest 2V DATE OF EXAM: 12/03/2019 COMPARISON: NONE HISTORY: Short of breath TECHNIQUE: FINDINGS: There is no heart failure. There is some coarse linear density in the lower lobes bilateral ly. Bony thorax is intact. Heart is top normal in size. There is no pleural effusion. IMPRESSION: There is some mild linear infiltrate and atelectasis at the lung bases and more on the le ft side. No heart failure seen.
[2019-12-03] MEDS ORDERED: MAGNESIUM SULFATE-WATER PMX 4 GM in WATER FOR INJECTION 1 100ML.BAG IVPB ONE (22:00)
[2019-12-03] MEDS ORDERED: ACETAMINOPHEN TAB 325 MG TAB PO PRN (22:02)
[2019-12-03] MEDS ORDERED: NALOXONE 0.4 MG/ML 1 ML VIAL IV PRN (22:02)
[2019-12-03] MEDS: SODIUM CHLORIDE 0.9% 1,000 ML IV SCH (22:10)
--- NOTE | 2019-12-03 22:44 | P.HPOB ---
History of Present Illness H&P Date: 12/03/19 Chief Complaint: day 7: preeclampsia Cathleen is a 29-year-old female who had a spontaneous vaginal delivery approximately 1 week ago. She relates that she had no complications or issues following the delivery. And was discharged home in stable condition. She relates that on Monday she began noticing some swelling of her lower extremities and that by tonight her right lower extremity was significantly more swollen than her left. Her brought her into the emergency room for evaluation due to same as well as her "shortness of breath" which she also has been noticing over the last several days. The emergency room ran a Doppler of her leg which was negative as was a is computed tomography scan of her chest for pulmonary emboli. However, in being seen in the emergency room her blood pressures were noted to be elevated on multiple occasions. She is seen resting comfortably in the bed denies acute pain or other symptoms that might relate to her increased blood pressure. When I was seeing her her blood pressure is 150/90. There is some concern for atypical preeclampsia. In evaluating her, we discussed what has been going on for last few days at home and she relates there been no real significant changes. She states that she has had some headaches but nothing that is been [place] severe. She denies any visual changes and denies any epigastric pain. Laboratory studies in the emergency room do reveal a mixed picture. Her platelets are normal. Her liver enzyme ALT is mildly elevated at 52. Her LDH is elevated in the 740s. She however has no protein in her urine. On physical exam her heart is regular and her lungs are clear. Abdomen is soft uterus is firm and lochia is reported be light. Her extremities do show significant peripheral edema on the right at 2+ with 1+ on the left and bilateral hands as well as in the face. Deep tendon reflexes are 2+ in the left lower extremity and 3+ in the right upper and lower extremities. There is no clonus however. She and I had a long discussion on basic concerns of preeclampsia risk of seizures as well as other cardiac and pulmonary potential problems. At this time overall she appears stable. She is in good spirits and believed she would be going home shortly as she is not really think that there is anything wrong. I did explain my concerns and we have admitted her for seizure prophylaxis and reevaluation of blood pressures through the night. Certainly preeclampsia is not the only possible risk, however with her elevated liver enzymes and elevated LDH would like to at least protect her as much as possible for the next day or so. Consideration for cardiomyopathy male's be needed troponins were negative. Chest x-ray and CT did not show anything other than possible mild cardiomegaly. Cardiology consult should be obtained Assessment day 7 suspected atypical preeclampsia Plan magnesium sulfate for seizure prophylaxis and very judicious fluid usage. We'll plan strict I's and O's for now with possible placement of Duron catheter if she becomes unable to easily ambulate to the restroom. Past Medical History Past Medical History: No Reported History Additional Past Medical History / Comment(s): Obstetric history: She has had 2 vaginal deliveries, 1 spontaneous , 1 ectopic . This is her fifth and she's had care with me since the beginning of the . This baby has been followed for two-vessel cord. History of Any Multi-Drug Resistant Organisms: None Reported Past Surgical History: No Surgical Hx Reported Additional Past Surgical History / Comment(s): tubes in ears as a child, left tube removed. Past Anesthesia/Blood Transfusion Reactions: Postoperative Nausea & Vomiting (PONV) Past Psychological History: Anxiety, Bipolar, Depression Smoking Status: Never smoker Past Alcohol Use History: None Reported Past Drug Use History: None Reported - Past Family History Mother Family Medical History: Cancer Additional Family Medical History / Comment(s): stage 3 lung ca, brain aneursym Father History Unknown: Yes Family Medical History: Myocardial Infarction ([place]) Medications and Allergies Home Medications Medication Instructions Recorded Confirmed Type Pnv No.95/Ferrous Fum/Folic AC 1 tab PO DAILY 08/10/19 12/03/19 History [ Multivitamin Tablet] Ibuprofen [Motrin] 600 mg PO Q6HR PRN #30 tab 11/28/19 12/03/19 Rx HYDROcodone/APAP 7.5-325MG [[place] 1 tab PO Q6H PRN 12/03/19 12/03/19 History 7.5-325] Luis Milk 2 tab PO DAILY 12/03/19 12/03/19 History Allergies Allergy/AdvReac Type Severity Reaction Status Date / Time lamotrigine [From Lamictal] Allergy Severe Rash/Hives Verified 12/03/19 21:48 Exam Osteopathic Statement: *. No significant issues noted on an osteopathic structural exam other than those noted in the History and Physical/Consult. Vital Signs Temp Pulse Resp BP Pulse Ox 12/03/19 22:11 60 17 153/90 100 12/03/19 21:10 58 L 156/77 96 12/03/19 20:50 59 L 164/107 97 12/03/19 20:00 59 L 144/85 96 12/03/19 19:00 98.2 F 60 22 150/88 97 Intake and Output 12/03/19 12/03/19 12/03/19 06:59 14:59 22:59 Other: Weight 87.044 kg Results Result Diagrams: 12/03/19 19:28 12/03/19 19:28 Abnormal Lab Results - Last 24 Hours (Table) 12/03/19 12/03/19 12/03/19 Range/Units 19:28 19:28 19:28 Hgb 10.8 L (11.4-16.0) gm/dL RDW 16.1 H (11.5-15.5) % D-Dimer 8.15 H (<0.60) mg/L FEU Chloride 111 H (98-107) mmol/L ALT 52 H (4-34) U/L Alkaline Phosphatase 128 H (38-126) U/L Lactate Dehydrogenase 744 H (313-618) U/L Total Protein 5.7 L (6.3-8.2) g/dL Albumin 3.0 L (3.5-5.0) g/dL Urine Blood (Negative) Ur Leukocyte Esterase (Negative) Urine WBC (0-5) /hpf Urine Mucus (None) /hpf 12/03/19 Range/Units 19:30 Hgb (11.4-16.0) gm/dL RDW (11.5-15.5) % D-Dimer (<0.60) mg/L FEU Chloride (98-107) mmol/L ALT (4-34) U/L Alkaline Phosphatase (38-126) U/L Lactate Dehydrogenase (313-618) U/L Total Protein (6.3-8.2) g/dL Albumin (3.5-5.0) g/dL Urine Blood Moderate H (Negative) Ur Leukocyte Esterase Large H (Negative) Urine WBC 15 H (0-5) /hpf Urine Mucus Rare H (None) /hpf
[2019-12-03] MEDS ORDERED: ACETAMINOPHEN TAB 500 MG TAB PO PRN (22:58)
[2019-12-03] MEDS: IBUPROFEN 600 MG TAB PO PRN (23:20)
[2019-12-03] MEDS: MAGNESIUM SULFATE-WATER PMX 20 GM in WATER FOR INJECTION 1 500ML.BAG IV SCH (23:21)
[2019-12-04] MEDS: SODIUM CHLORIDE 0.9% 1,000 ML IV SCH ×2 (06:11→16:47)
[2019-12-04 06:51] LABS: Anisocytosis Slight; Basophils % (A) 0 %; Eosinophils # (A) 0.3 k/uL (0-0.7); Eosinophils % (A) 5 %; HCT 35.5 % (34.0-46.0); Hypochromasia Slight; Lymphocytes # (A) 1.4 k/uL (1.0-4.8); Lymphocytes % (A) 26 %; MCH 25.9 pg (25.0-35.0); MCV 83.5 fL (80.0-100.0); Mean Platelet Volume 7.1; Monocytes # (A) 0.3 k/uL (0-1.0); Monocytes % (A) 5 %; Neutrophils # (A) 3.4 k/uL (1.3-7.7); Neutrophils % (A) 62 %; Platelet Count 321 k/uL (150-450); RBC 4.25 m/uL (3.80-5.40); RDW 16.1 % (11.5-15.5); WBC 5.5 k/uL (3.8-10.6)
[2019-12-04 07:19] LABS: ALT 46 U/L (4-34); AST 32 U/L (14-36); African American GFR (CKD) >90 (>60 ml/min/1.73 sqM); Alkaline Phosphatase 120 U/L (38-126); Anion Gap 5 mmol/L; Blood Urea Nitrogen 15 mg/dL (7-17); Calcium 7.6 mg/dL (8.4-10.2); Carbon Dioxide 24 mmol/L (22-30); Chloride 108 mmol/L (98-107); Glucose 83 mg/dL (74-99); Magnesium 4.5 mg/dL (1.6-2.3); Non-African American GFR(CKD) >90 (>60 ml/min/1.73 sqM); Potassium 4.6 mmol/L (3.5-5.1); Sodium 137 mmol/L (137-145); Total Bilirubin 0.4 mg/dL (0.2-1.3); Total Protein 5.8 g/dL (6.3-8.2)
[2019-12-04] MEDS: IBUPROFEN 600 MG TAB PO PRN ×3 (10:37→23:36)
[2019-12-04] MEDS: MAGNESIUM SULFATE-WATER PMX 20 GM in WATER FOR INJECTION 1 500ML.BAG IV SCH (15:58)
[2019-12-05] MEDS: IBUPROFEN 600 MG TAB PO PRN (09:53)
--- NOTE | 2019-12-05 12:39 | P.PNOBGVD ---
Subjective - Subjective Principal diagnosis: S/P NVD PPD #8-pp pre-eclampsia Interval history: Pt seen and examined. BPs are better since on magnesium. mild headache Patient reports: Reports appetite normal, Reports voiding normally, Reports pain well controlled, Reports ambulating normally : doing well Objective - Latest Vital Signs Latest vital signs: Vital Signs Temp Pulse Resp BP Pulse Ox 12/05/19 10:00 73 6 L 129/67 12/05/19 08:00 98.5 F 68 16 143/78 97 12/05/19 03:40 96.9 F L 64 12 129/63 95 12/04/19 23:42 97.6 F 75 12 118/59 97 12/04/19 20:13 98.1 F 72 12 137/88 96 12/04/19 16:31 69 16 130/79 12/04/19 13:00 96.9 F L 65 14 122/73 Intake and Output 12/04/19 12/05/19 12/05/19 22:59 06:59 14:59 Output Total 700 Balance -700 Output: Urine 700 Other: # Voids 1 1 - Exam Lungs: bilateral: normal Chest: Normal S1, Normal S2 Extremities: Present: normal Abdomen: Present: normal appearance, soft Uterus: Present: normal, firm - Labs Labs: Microbiology - Last 24 Hours (Table) 12/03/19 19:30 Urine Culture - Final Urine,Voided Assessment and Plan (1) Preeclampsia Current Visit: Yes Status: Acute Code(s): O14.90 - UNSPECIFIED PRE-ECLAMP GUY, UNSPECIFIED TRIMESTER SNOMED Code(s): 411026997 Plan: 1. cont mag until 24 hours. 2. cont to monitor BP
--- NOTE | 2019-12-05 12:42 | P.DS ---
Providers Date of admission: 12/03/19 21:35 Expected date of discharge: 12/05/19 Attending physician: Lucila Paredes Primary care physician: Carmelo Watkins - Discharge Diagnosis(es) (1) Preeclampsia Current Visit: Yes Status: Acute Hospital Course: Pt presented with headache, swelling, SOB and inc BPs. She was diagnosed with PP pre-eclampsia and admitted to the hospital. She was given magnesium sulfate for 24 hours. HEr output was good, her headache resolved, swelling improved. Her BPs off mag are now 119-141/60-70. I reviewed the s/s of pre-eclampsia with her and her . We discussed when to return tot [facility] and when to call the dr. They seem very clear on instructions and will go home today in stable condition to follow up with me in a few days. Patient Condition at Discharge: Stable Plan - Discharge Summary New Discharge Prescriptions: No Action Pnv No.95/Ferrous Fum/Folic AC [ Multivitamin Tablet] 1 tab PO DAILY Ibuprofen [Motrin] 600 mg PO Q6HR PRN #30 tab PRN Reason: Mild Pain Or Fever >= 100.5 Luis Milk 2 tab PO DAILY HYDROcodone/APAP 7.5-325MG [[place] 7.5-325] 1 tab PO Q6H PRN PRN Reason: Pain Discharge Medication List Pnv No.95/Ferrous Fum/Folic AC [ Multivitamin Tablet] 1 tab PO DAILY [History] Ibuprofen [Motrin] 600 mg PO Q6HR PRN #30 tab 11/28/19 [Rx] HYDROcodone/APAP 7.5-325MG [[place] 7.5-325] 1 tab PO Q6H PRN 12/03/19 [History] Luis Milk 2 tab PO DAILY 12/03/19 [History] Follow up Appointment(s)/Referral(s): Carmelo Watkins MD [Primary Care Provider] - 1-2 days
[2019-12-05 12:57] VITALS: BP 141/69; PULSE 67; RESP 16; TEMP 98.4
[2019-12-05] MEDS: MAGNESIUM SULFATE-WATER PMX 20 GM in WATER FOR INJECTION 1 500ML.BAG IV SCH ×2 (13:07→13:08)
[2019-12-05] MEDS: SODIUM CHLORIDE 0.9% 1,000 ML IV SCH (13:08)
== END 2019-12-05 12:55 | disposition home or self-care (01) | DRG 776 ==
LOC: EC 18:57 → 4FBP 21:35
PROVIDERS: ADMIT Obstetrics & Gynecology; ATTEND Obstetrics & Gynecology
DX: O14.95 Unspecified pre-eclampsia, complicating the puerperium (principal); F31.9 Bipolar disorder, unspecified; O99.345 Other mental disorders complicating the puerperium; F41.9 Anxiety disorder, unspecified; Z80.1 Family history of malignant neoplasm of trachea, bronchus and lung; Z82.49 Family history of ischemic heart disease and other diseases of the circulatory system; Z87.891 Personal history of nicotine dependence
CPT/HCPCS: 36415; 71046; 71275; 80053; 81001; 83615; 83735; 83880; 84484; 84550; 85025; 85379; 85610; 85730; 87086; 93005; 96365; 99285

== ENCOUNTER → 2021-01-12 | Outpatient (CLI) | payer BC ==
--- NOTE | 2021-01-13 07:54 | US ---
EXAMINATION TYPE: Ultrasound OB <= 14 week fetus DATE OF EXAM: 01/12/2021 4:22 PM COMPARISON: NONE CLINICAL HISTORY: 30-year-old female Confirm Dates Z36. EXAM PERFORMED: Transabdominal (TA) FINDINGS: EXAM MEASUREMENTS: GESTATIONAL AGE / DATING Physician Established: Not yet established Dates by LMP: LMP unknown Dates by First Scan: No previous this is first scan Dates by Current Scan for: (10 weeks/4 days) EDC: 08/06/21 MATERNAL ANATOMY Uterus: 11.5 x 7.1 x 9.3cm Right Ovary: 2.4 x 1.5 x 1.5cm Left Ovary: 2.9 x 1.9 x 2.0cm Post CDS / Adnexa: appears wnl Presence of free fluid: no Presence of corpus luteal cyst: yes, complex area left ovary = 1.7 x 1.3 x 1.5cm GESTATION / SURVEY CRL: 3.7cm (10 weeks/4 days) Yolk Sac (normal less than 6mm): 0.5cm Heart Rate: 176 bpm, upper limits of normal Rhythm: Normal IUP: Viable IUP Date of LMP: unknown Beta HcG (if available): Not available at this time IMPRESSION: 1. Single live intrauterine with gestational age of 10 weeks 4 days by CRL. 2. Short interval follow-up can be considered given heart rate at the upper limits of normal at 176 BPM. 3. Otherwise, complete survey recommended at 18-20 weeks.
== END ==
LOC: RADUSWWP 16:06
PROVIDERS: ATTEND Obstetrics & Gynecology
DX: Z34.91 Encounter for supervision of normal pregnancy, unspecified, first trimester (principal); Z3A.10 10 weeks gestation of pregnancy
CPT/HCPCS: 76801

== ENCOUNTER 2021-03-28 19:00 | Outpatient (CLI) | payer BC ==
[2021-03-28 19:44] LABS: Appearance,Urine Clear (Clear); Bilirubin,Urine Negative (Negative); Blood,Urine Negative (Negative); Color,Urine Colorless; Glucose,Urine (UA) Negative (Negative); Ketones,Urine Negative (Negative); Leukocyte Esterase,Urine Negative (Negative); Nitrite,Urine Negative (Negative); Protein,Urine Negative (Negative); Specific Gravity,Urine 1.002 (1.001-1.035); Urobilinogen,Urine <2.0 mg/dL (<2.0)
[2021-03-28 20:15] LABS: Basophils % (A) 0 %; Eosinophils # (A) 0.4 k/uL (0-0.7); Eosinophils % (A) 4 %; HCT 39.2 % (34.0-46.0); HGB 12.8 gm/dL (11.4-16.0); Lymphocytes # (A) 2.2 k/uL (1.0-4.8); Lymphocytes % (A) 20 %; MCH 28.6 pg (25.0-35.0); MCHC 32.6 g/dL (31.0-37.0); MCV 87.6 fL (80.0-100.0); Mean Platelet Volume 6.9; Monocytes # (A) 0.4 k/uL (0-1.0); Monocytes % (A) 3 %; Neutrophils # (A) 8.3 k/uL (1.3-7.7); Neutrophils % (A) 73 %; Platelet Count 292 k/uL (150-450); RBC 4.48 m/uL (3.80-5.40); RDW 13.3 % (11.5-15.5); WBC 11.4 k/uL (3.8-10.6)
[2021-03-28] MEDS ORDERED: LACTATED RINGERS 500 ML IV SCH (20:30)
[2021-03-28 22:19] VITALS: BP 118/72; PULSE 90; RESP 16; TEMP 97.3
--- NOTE | 2021-03-29 06:12 | P.MSEPDOC ---
Presenting Problems - Arrival Data Date of Arrival on Unit: 03/28/21 Time of Arrival on Unit: 19:00 Mode of Transport: Wheelchair - Complaint OB-Reason for Admission/Chief Complaint: Pain Comment: Pt. present to triage due to sever intermitted pain to lower pelvic that radiates up to left side discribed as tightening and sharp 10/10 when it occurs and only last for about a minute. Medical History - Information : 6 Para: 3 Term: 3 : 0 Abortions: Spontaneous or Elective: 2 Number of Living Children: 3 - Gestational Age Gestational Age by KARIME (wks/days): 20 Weeks and 4 Days - History Complications: Smoker Comment: smokes only on the weekends per patient Review of Systems - Review of Systems Constitutional: No problems Breast: No problems ENT: No problems Cardiovascular: No problems Respiratory: No problems Gastrointestinal: No problems Genitourinary: No problems Musculoskeletal: No problems Neurological: No problems Skin: No problems Vital Signs - Temperature Temperature: 97.3 F Temperature Source: Temporal Artery Scan - Pulse Pulse Oximetery Pulse Rate: 90 Pulse Assessment Method: Pulse Oximetry - Respirations Respiratory Rate: 16 Oxygen Delivery Method: Room Air O2 Sat by Pulse Oximetry: 100 - Blood Pressure Right Arm Blood Pressure: 118/72 Blood Pressure Mean: 87 Blood Pressure Source: Automatic Cuff Medical Screen Scoring (Pre) - Cervical Exam Dilation: 0 cm = 0 Membranes: Intact - Uterine Contractions Frequency: N/A Duration: N/A Intensity: N/A - Maternal Vital Signs Maternal Temperature: N/A Maternal Blood Pressure: N/A Signs of Preeclampsia: N/A Maternal Respirations: N/A - Maternal Trauma Maternal Trauma: N/A - Assessment - Baby A Baseline FHR: 150 Heart Rate - NICHD Category: Category I (Normal) = 0 Position: N/A Station: N/A - Total Score - Baby A Total Score - Baby A: 0 - Total Score - Baby B Total Score - Baby B: 0 - Total Score - Baby C Total Score - Baby C: 0 - Level of Risk - Baby A Level of Risk - Baby A: Low (0-5) - Level of Risk - Baby B Level of Risk - Baby B: Low (0-5) - Level of Risk - Baby C Level of Risk - Baby C: Low (0-5) Physician Notification (Pre) - Physician Notified Physician Notified Date: 03/28/21 Physician Notified Time: 19:30 New Order Received: Yes - Notification Comment Comment: CBC and urinalysis sent and reviewed with Dr. Pearson, IV ordered and ordered for bolus of LR 1000ml, Dr. Pearson at bedside reviewed POC, orders to discharge patient home. Disposition - Disposition OB Disposition: Discharge to home Discharge Date: 03/28/21 Discharge Time: 21:37 I agree with the RN Medical Screening Exam: Yes Case reviewed; plan agreed upon as documented in EMR&OBIX.: Yes Diagnosis: PAIN, UNSPECIFIED (Patient is seen and evaluated in triage. She developed sudden onset of generalized abdominal pain earlier in the afternoon. No nausea vomiting or diarrhea. No fevers. No vaginal bleeding. Examination is limited to the abdomen and pelvis and there is no significant findings. In talking the patient appears that she had a single contraction. I did offer admission for observation versus follow-up in the office and she elected to go home. I did give her indications to call in the meantime. At this time there was no evidence of maternal compromise.)
== END 2021-03-28 21:37 | disposition home or self-care (01) ==
LOC: FBPOP 19:00
PROVIDERS: ATTEND Obstetrics & Gynecology
DX: O26.893 Other specified pregnancy related conditions, third trimester (principal); R10.9 Unspecified abdominal pain; Z3A.20 20 weeks gestation of pregnancy; Z88.8 Allergy status to other drugs, medicaments and biological substances; Z87.891 Personal history of nicotine dependence
CPT/HCPCS: 81003; 85025; 96360; 99214

== ENCOUNTER 2021-07-11 19:40 | Emergency (ER) | payer BC ==
[2021-07-11 19:45] VITALS: RESP 18
[2021-07-11] MEDS ORDERED: LIDOCAINE 1% INJ 10MG/ML (20 ML MDV) SQ ONE (20:05)
--- NOTE | 2021-07-11 20:25 | ED ---
General Adult HPI - General Source: patient Mode of arrival: ambulatory Limitations: no limitations <Johanna Luong - Last Filed: 07/11/21 21:48> <Alka Bueno - Last Filed: 07/11/21 23:17> - General Chief complaint: Abdominal Pain Stated complaint: hemorhoids, 36 weeks Time Seen by Provider: 07/11/21 19:46 - History of Present Illness Initial comments: 31 year-old female patient presents to the emergency department for evaluation of rectal pain and pressure. Patient states she is 36 weeks . Has hemorrhoids. States that they flared up yesterday. States that today she is unable to sit. He is intense pressure around her rectal area. Denies abdominal pain or cramping. Denies any bleeding from the hemorrhoids. States she did speak to her INSPECTOR CRYSTAL who recommended she come to the emergency department for evaluation. Patient denies any nausea or vomiting. Denies fever or chills. (Johanna Luong) - Related Data Home Medications Medication Instructions Recorded Confirmed Pnv No.95/Ferrous Fum/Folic AC 1 tab PO DAILY 08/10/19 03/28/21 [ Multivitamin Tablet] Dextroamphetamine/Amphetamine 40 mg PO DAILY 03/28/21 03/28/21 [Adderall] Folic Acid 1 mg PO DAILY 03/28/21 03/28/21 Allergies Allergy/AdvReac Type Severity Reaction Status Date / Time lamotrigine [From Lamictal] Allergy Severe Rash/Hives Verified 07/11/21 19:45 Review of Systems ROS Other: All systems not noted in ROS Statement are negative. <Johanna Luong - Last Filed: 07/11/21 21:48> ROS Other: All systems not noted in ROS Statement are negative. <Alka Bueno - Last Filed: 07/11/21 23:17> ROS Statement: Those systems with pertinent positive or pertinent negative responses have been documented in the HPI. Past Medical History Past Medical History: No Reported History Additional Past Medical History / Comment(s): Obstetric history: She has had 2 vaginal deliveries, 1 spontaneous , 1 ectopic . This is her fifth and she's had care with me since the beginning of the . This baby has been followed for two-vessel cord. History of Any Multi-Drug Resistant Organisms: None Reported Past Surgical History: No Surgical Hx Reported Additional Past Surgical History / Comment(s): tubes in ears as a child, left tube removed. Past Anesthesia/Blood Transfusion Reactions: Postoperative Nausea & Vomiting (PONV) Past Psychological History: Anxiety, Bipolar, Depression Smoking Status: Current some day smoker Past Alcohol Use History: None Reported Past Drug Use History: None Reported - Past Family History Mother Family Medical History: Cancer Additional Family Medical History / Comment(s): stage 3 lung ca, brain aneursym Father History Unknown: Yes Family Medical History: Myocardial Infarction ([place]) <Johanna Luong - Last Filed: 07/11/21 21:48> General Exam Limitations: no limitations General appearance: alert, in no apparent distress, in distress (Mild distress related to pain), other (Vital signs upon presentation are temperature 98.0F, pulse 117, respirations 18, blood pressure 119/55, pulse ox 95% on room air.) Respiratory exam: Present: normal lung sounds bilaterally. Absent: respiratory distress, wheezes, rales, rhonchi, stridor Cardiovascular Exam: Present: regular rate, normal rhythm, normal heart sounds. Absent: systolic murmur, diastolic murmur, rubs, gallop, clicks GI/Abdominal exam: Present: soft, normal bowel sounds, other (Gravid abdomen). Absent: distended, tenderness, guarding, rebound, rigid Rectal exam: Present: hemorrhoids (2 large thrombosed hemorrhoids noted perianally. No surrounding swelling or erythema. No bleeding.) Neurological exam: Present: alert, oriented X3, CN II-XII intact Psychiatric exam: Present: normal affect, normal mood Skin exam: Present: warm, dry, intact, normal color. Absent: rash <Johanna Luong - Last Filed: 07/11/21 21:48> Course Vital Signs 07/11/21 07/11/21 19:43 20:31 Temperature 98.0 F 97.9 F Pulse Rate 117 H 105 H Respiratory 18 18 Rate Blood Pressure 119/55 114/69 O2 Sat by Pulse 95 96 Oximetry Procedures - Incision & Drainage Consent Obtained: verbal consent Site: other (hemorrhoid) Anesthetic Used: lidocaine 1%, with epi I&D Cleaning Method: Alcohol Wipe Sterile Field Used?: No Scalpel Used: #11 Needle Aspiration Performed?: No Irrigation Performed?: No I&D Drainage Obtained: Blood Culture Obtained?: No Patient Tolerated Procedure: well, no complications <Alka Bueno - Last Filed: 07/11/21 23:17> Medical Decision Making <Johanna Luong - Last Filed: 07/11/21 21:48> - Medical Decision Making 31-year-old female patient presents to the emergency department today for evaluation of hemorrhoid pain. Physical examination did reveal 2 large thrombosed hemorrhoids perianally with no surrounding swelling or erythema. My attending Dr. Bueno was in to evaluate the patient did perform excision of the thrombosis. Patient did tolerate this procedure well. She'll be discharged home to take multiple warm sitz baths per day. Follow-up with the INSPECTOR CRYSTAL and primary care physician as soon as possible. Return parameters discussed in detail. She verbalizes understanding and agrees with this plan. Case discussed with my attending Dr. Bueno. (Johanna Luong) Disposition Is patient prescribed a controlled substance at d/c from ED?: No Time of Disposition: 20:27 <Johanna Luong - Last Filed: 07/11/21 21:48> <Alka Bueno - Last Filed: 07/11/21 23:17> Clinical Impression: Thrombosed hemorrhoids Disposition: HOME SELF-CARE Condition: Good Instructions (If sedation given, give patient instructions): Thrombosed Hemorrhoid (ED) Additional Instructions: Do warm sitz baths several times per day. Continue with witch olivia pads and tylenol. Follow-up with your INSPECTOR CRYSTAL and primary care physician for recheck as soon as possible. Return to the emergency department for any new, worsening, or concerning symptoms. Referrals: Carmelo Watkins MD [Primary Care Provider] - 1-2 days
[2021-07-11 20:33] VITALS: BP 114/69; PULSE 105; TEMP 97.9
== END 2021-07-11 20:31 | disposition home or self-care (01) ==
LOC: EC 19:40
DX: O22.43 Hemorrhoids in pregnancy, third trimester (principal); O99.343 Other mental disorders complicating pregnancy, third trimester; F17.200 Nicotine dependence, unspecified, uncomplicated; F41.9 Anxiety disorder, unspecified; F31.9 Bipolar disorder, unspecified; Z3A.36 36 weeks gestation of pregnancy; Z87.59 Personal history of other complications of pregnancy, childbirth and the puerperium
CPT/HCPCS: 99283; 46083; J2001

== ENCOUNTER 2021-07-20 14:39 | Outpatient (CLI) | payer BC ==
[2021-07-20 16:18] VITALS: BP 134/85; PULSE 90; RESP 18; TEMP 98.1
--- NOTE | 2021-07-30 13:09 | P.MSEPDOC ---
Presenting Problems - Arrival Data Date of Arrival on Unit: 07/20/21 Time of Arrival on Unit: 14:39 Mode of Transport: Ambulatory - Complaint OB-Reason for Admission/Chief Complaint: Rule Out SROM Comment: pt thinks she had SROM around 1330 today, no leaking since then, having some contractions Medical History - Information : 6 Para: 3 Term: 3 : 0 Abortions: Spontaneous or Elective: 2 Number of Living Children: 3 - Gestational Age Gestational Age by KARIME (wks/days): 36 Weeks and 6 Days Review of Systems - Review of Systems Constitutional: No problems Breast: No problems ENT: No problems Cardiovascular: No problems Respiratory: No problems Gastrointestinal: No problems Genitourinary: No problems Musculoskeletal: No problems Neurological: No problems Skin: No problems Vital Signs - Temperature Temperature: 98.1 F Temperature Source: Temporal Artery Scan - Pulse Right Brachial Pulse Rate: 90 Pulse Assessment Method: Automatic Cuff - Respirations Respiratory Rate: 18 Oxygen Delivery Method: Room Air O2 Sat by Pulse Oximetry: 98 - Blood Pressure Right Arm Blood Pressure: 134/85 Blood Pressure Mean: 101 Blood Pressure Source: Automatic Cuff Medical Screen Scoring - Cervical Exam Dilation (cm): 2 Effacement (%): 80 Station: -3 - Uterine Contractions Frequency From (mins): 7 Frequency To (mins): 10 Duration From (seconds): 40 Duration To (seconds): 50 Intensity: Mild Resting: Soft to palpation - Assessment - Baby A Baseline FHR: 135 Heart Rate - NICHD Category: Category I (Normal) NST: Reactive Physician Notification - Physician Notified Physician Notified Date: 07/20/21 Physician Notified Time: 15:48 Physician: Lucila Paredes New Order Received: Yes - Notification Comment Comment: amniosure negative, cervical exam 80/-3, same as 2 weeks ago, reactive nst, contractions 7-10 min apart, orders to discharge pt home, she has appt tomorrow with Dr. Paredes Maternal Triage Index - Maternal Triage Index Presenting for scheduled procedure w/no complaint: No - Stat/Priority 1 Stat Priority 1: No - Urgent/Priority 2 Urgent Priority 2: No - Prompt/Priority 3 Prompt Priority 3: Yes Criteria Met for Priority 3: pt is 37 weeks with concerns about SROM at 1330 today Disposition - Disposition OB Disposition: Triage Discharge Date: 07/20/21 Discharge Time: 16:00 I agree with the RN Medical Screening Exam: Yes Case reviewed; plan agreed upon as documented in EMR&OBIX.: Yes Diagnosis: FALSE LABOR BEFORE 37 COMPLETED WEEKS OF GEST, THIRD TRI
== END 2021-07-20 16:00 | disposition home or self-care (01) ==
LOC: FBPOP 14:39
PROVIDERS: ATTEND Obstetrics & Gynecology
DX: O47.03 False labor before 37 completed weeks of gestation, third trimester (principal); Z3A.36 36 weeks gestation of pregnancy; Z87.891 Personal history of nicotine dependence; Z88.8 Allergy status to other drugs, medicaments and biological substances
CPT/HCPCS: 59025; 84112; 99213

== ENCOUNTER 2021-08-01 23:28 | Inpatient (IN) | payer BC ==
[2021-08-01] MEDS ORDERED: METHYLERGONOVINE 0.2 MG/ML 1 ML AMP IM PRN (23:32)
[2021-08-01] MEDS ORDERED: OXYTOCIN 10 UNIT/ML 1 ML VIAL IM PRN (23:32)
[2021-08-01] MEDS ORDERED: LIDOCAINE 0.5% (PF) 5 MG/ML (50 ML SDV) SQ PRN (23:32)
[2021-08-01] MEDS ORDERED: TERBUTALINE 1 MG/ML VIAL SQ PRN (23:32)
[2021-08-01] MEDS ORDERED: CARBOPROST TROMETHAMINE 250 MCG/ML 1 ML AMP IM PRN (23:32)
[2021-08-01] MEDS ORDERED: LACTATED RINGERS 1,000 ML IV SCH (23:45)
[2021-08-01] MEDS ORDERED: OXYTOCIN 30 UNITS/500 ML NS 30 UNIT in SALINE 1 500ML.BAG IV SCH (23:45)
[2021-08-02 00:21] LABS: Basophils % (A) 0 %; Eosinophils # (A) 0.2 k/uL (0-0.7); Eosinophils % (A) 2 %; HCT 32.7 % (34.0-46.0); HGB 10.6 gm/dL (11.4-16.0); Hypochromasia Moderate; Lymphocytes # (A) 1.7 k/uL (1.0-4.8); Lymphocytes % (A) 21 %; MCHC 32.3 g/dL (31.0-37.0); MCV 80.6 fL (80.0-100.0); Mean Platelet Volume 7.8; Monocytes # (A) 0.3 k/uL (0-1.0); Monocytes % (A) 4 %; Neutrophils # (A) 5.8 k/uL (1.3-7.7); Neutrophils % (A) 69 %; Platelet Count 320 k/uL (150-450); Poikilocytosis Slight; RBC 4.06 m/uL (3.80-5.40); RDW 15.8 % (11.5-15.5); WBC 8.3 k/uL (3.8-10.6)
[2021-08-02] MEDS ORDERED: diphenhydrAMINE 50 MG/ML 1 ML VIAL IVP PRN ×2 (00:44)
[2021-08-02] MEDS ORDERED: ZOLPIDEM 5 MG TAB PO PRN (00:44)
[2021-08-02] MEDS ORDERED: BENZOCAINE/MENTHOL SPRAY 1 GM/SPRAY AEROSOL TOPICAL PRN (00:44)
[2021-08-02] MEDS ORDERED: HYDROCORTISONE 2.5% RECTAL CREAM 30 GM TUBE RECTAL PRN (00:44)
[2021-08-02] MEDS ORDERED: LANOLIN CREAM 5 GM TUBE TOPICAL PRN (00:44)
[2021-08-02] MEDS ORDERED: diphenhydrAMINE 50 MG CAP PO PRN (00:44)
[2021-08-02] MEDS ORDERED: diphenhydrAMINE 25 MG CAP PO PRN (00:44)
[2021-08-02] MEDS ORDERED: OXYTOCIN 30 UNITS/500 ML NS 30 UNIT in SALINE 1 500ML.BAG IV SCH (00:45)
[2021-08-02] MEDS ORDERED: KETOROLAC 15 MG/ML 1 ML VIAL IVP STA (00:48)
--- NOTE | 2021-08-02 00:48 | P.HPOB ---
History of Present Illness H&P Date: 08/02/21 Chief Complaint: active labor 31-year-old presents in active labor. Her cervix was 7 cm dilated, 90% effaced, and -1 station. She is salome every 2 minutes. heart tones 130 with moderate variability and reactive. Review of Systems All systems: negative Constitutional: Denies chills, Denies fever Eyes: denies blurred vision, denies pain Ears, nose, mouth and throat: Denies headache, Denies sore throat Cardiovascular: Denies chest pain, Denies shortness of breath Respiratory: Denies cough Gastrointestinal: Denies abdominal pain, Denies diarrhea, Denies nausea, Denies vomiting Genitourinary: Denies dysuria, Denies hematuria Musculoskeletal: Denies myalgias Integumentary: Denies pruritus, Denies rash Neurological: Denies numbness, Denies weakness Psychiatric: Denies anxiety, Denies depression Endocrine: Denies fatigue, Denies weight change Past Medical History Past Medical History: No Reported History Additional Past Medical History / Comment(s): Obstetric history: She has had 3 vaginal deliveries, 1 spontaneous , 1 ectopic . This is her sixth and she's had care with me since the beginning of the . Blood type B positive, antibodies negative, rubella nonimmune, hepatitis B-, GBS negative, RPR nonreactive History of Any Multi-Drug Resistant Organisms: None Reported Past Surgical History: No Surgical Hx Reported Additional Past Surgical History / Comment(s): tubes in ears as a child, left tube removed. Past Anesthesia/Blood Transfusion Reactions: Postoperative Nausea & Vomiting (PONV) Past Psychological History: Anxiety, Bipolar, Depression Additional Psychological History / Comment(s): as a teenager Smoking Status: Current every day smoker Past Alcohol Use History: None Reported Past Drug Use History: None Reported - Past Family History Mother Family Medical History: Cancer Additional Family Medical History / Comment(s): stage 3 lung ca, brain aneursym Father History Unknown: Yes Family Medical History: Myocardial Infarction ([place]) Medications and Allergies Home Medications Medication Instructions Recorded Confirmed Type Pnv No.95/Ferrous Fum/Folic AC 1 tab PO DAILY 08/10/19 07/20/21 History [ Multivitamin Tablet] Dextroamphetamine/Amphetamine 40 mg PO DAILY 03/28/21 07/20/21 History [Adderall] Folic Acid 1 mg PO DAILY 03/28/21 07/20/21 History Allergies Allergy/AdvReac Type Severity Reaction Status Date / Time lamotrigine [From Lamictal] Allergy Severe Rash/Hives Verified 07/20/21 15:04 Exam Osteopathic Statement: *. No significant issues noted on an osteopathic structural exam other than those noted in the History and Physical/Consult. Vital Signs Temp Pulse Resp BP Pulse Ox 08/01/21 23:45 96.6 F L 90 16 128/60 100 Intake and Output 08/01/21 08/01/21 08/02/21 14:59 22:59 06:59 Other: Weight 85.275 kg Heart: Regular rate and rhythm Lungs: Clear to auscultation bilaterally Abdomen: Soft, nontender Extremities: Negative Homans sign Results Result Diagrams: 08/02/21 00:09 Abnormal Lab Results - Last 24 Hours (Table) 08/02/21 Range/Units 00:09 Hgb 10.6 L (11.4-16.0) gm/dL Hct 32.7 L (34.0-46.0) % RDW 15.8 H (11.5-15.5) % Assessment and Plan (1) Normal labor Current Visit: No Status: Resolved Code(s): O80 - ENCOUNTER FOR FULL-TERM UNCOMPLICATED DELIVERY; Z37.9 - OUTCOME OF DELIVERY, UNSPECIFIED SNOMED Code(s): 55928022 Plan: 1. Expectant management 2. Anticipate normal vaginal delivery
--- NOTE | 2021-08-02 00:50 | P.PROBDLV ---
Vaginal Delivery Note - . Vaginal Delivery Note: 31-year-old presents in active labor. Her cervix was 7 cm dilated, 90% effaced, and -1 station. She is salome every 2 minutes. heart tones 130 with moderate variability and reactive. Amniotomy performed around 00 15 and meconium fluid noted. Her cervix was completely dilated at 00 23. She pushed, delivered a viable male infant over intact perineum at 0029. Head delivered OA, anterior shoulder delivered gentle downward guidance for by posterior shoulder and rest of body. Nose and mouth bulb suctioned, cord clamped and cut, infant placed mother's abdomen. Apgars 9, 9, weight 8 lbs. 3 oz. Placenta delivered spontaneously, intact with three-vessel cord at 00 36. Vagina, cervix, and perineum were inspected. No lacerations noted. Estimated blood loss 259 mL.
[2021-08-02] MEDS ORDERED: BUTORPHANOL 1 MG/ML 1 ML VIAL IV ONE ×2 (02:01→05:03)
[2021-08-02] MEDS: ACETAMINOPHEN TAB 325 MG TAB PO PRN ×2 (02:33→13:09)
[2021-08-02] MEDS ORDERED: HYDROmorphone 1 MG/ML 1 ML SYRINGE IVP STA (02:47)
[2021-08-02] MEDS: SENNOSIDES-DOCUSATE SODIUM 1 EACH TAB PO SCH ×2 (09:17→20:49)
[2021-08-02] MEDS: IBUPROFEN 600 MG TAB PO PRN ×2 (09:17→15:42)
[2021-08-02] MEDS ORDERED: HYDROmorphone 2 MG TAB PO PRN (13:24)
--- NOTE | 2021-08-02 13:31 | P.PN ---
Progress Note - Text Progress Note Date: 08/02/21 OTTO Connolly about pain. She relates that the pain is intermittent and on since 5 AM she is only had 3 episodes of the pain. A sharp stabbing and severe is essentially located essentially at her uterus. In doing evaluation her uterus is firm approximately 6-8 cm below the umbilicus. Bleeding is minimal. Round ligament and groin area are without pain. As I was standing to my evaluation after just touching her uterus a little bit she again had another episode of the pain and it came on slowly began to rise to a peak and she had be feel her uterus and at that time her uterus was very firm very much like she was having a contraction. Most likely she is feeling significant pain due to the contractions as her body is preparing her to be able to breast-feed. I cannot find any other source for her pain at this time. If it persists or increases we may need for a CAT scan of the pelvis to verify no other pathology. Will add Dilaudid back to her pain medicine some regimen as she has something for acute pain now. It is also noted that the baby had been sleeping just before the pain began and within 30 seconds of her pain coming on the baby began to cry loudly again increase the likelihood this may be a oxytocin response. We'll continue to monitor closely.
[2021-08-02] MEDS: SIMETHICONE 80 MG CHEWABLE PO PRN ×2 (15:17→20:49)
--- NOTE | 2021-08-02 15:26 | CT ---
EXAMINATION TYPE: CT abdomen pelvis wo con DATE OF EXAM: 08/02/2021 COMPARISON: 05/16/2013 HISTORY: 31-year-old female pelvic pain secondary to vaginal labor 14 hours ago[address] Abdominal pain. [address] DLP: 558.6 mGycm. Automated exposure control for dose reduction was used. TECHNIQUE: Contiguous axial scanning of the abdomen and pelvis without IV contrast. Coronal and sagit feli reconstructions performed. FINDINGS: Heart normal size without pericardial effusion. Lung bases clear without pleural effusion. Prominent ingested debris distending the stomach. Noncontrast appearance of the liver, gallbladder, adrenal glands, kidneys, spleen show no gross abnor mality. Questionable mild retroperitoneal fat stranding at and below the pancreas. Incidental pneumobilia within the bile duct. Query any history of prior sphincterotomy. No dilated small bowel, free fluid, or free air. No mesenteric or retroperitoneal lymphadenopathy. Scattered mild stool. No pericolonic inflammatory change. Recently gravid uterus extending nearly up to the umbilicus measuring up to 18.9 cm craniocaudal and 17.0 cm wide. Scattered hyperdense clot is present within the uterine cavity measuring 2.5 cm at the fundus of the uterus and 3.5 cm along the lower uterine segment. Additional scattered hyperdense, hem orrhagic debris is present within the uterine cavity. Possible tiny 1 mm punctate focus of air in the uterine cavity at the level of the mid body. Refer to axial image 74, sagittal image 67, and coronal image 37. Bladder not distended. Pelvic phlebolith. Unable to clearly delineate the ovaries. No pelvic free flu id. No pelvic lymphadenopathy. Bones: No acute fracture or osseous destructive process. IMPRESSION: 1. Bulky, recently gravid uterus measuring up to 18.9 cm craniocaudal and 17.0 cm wide. Some scatter ed hyperdense hemorrhagic material is present within the uterine cavity which may be normal. Clinical ly correlate. 2. Questionable tiny punctate 1 mm focus of air in the uterine cavity (axial image 74). Correlation to exclude endometritis. 3. Some edema along the retroperitoneum that seems to be at and below the pancreas. Correlate with a mylase and lipase levels to exclude acute pancreatitis. 4. Air in the bile duct. The etiology of this finding is unclear. Query history of prior sphincterot johana.
[2021-08-02] MEDS ORDERED: ONDANSETRON 4 MG/2 ML VIAL IVP PRN (16:21)
[2021-08-02] MEDS ORDERED: NALOXONE 0.4 MG/ML 1 ML VIAL IV PRN (16:21)
--- NOTE | 2021-08-02 16:25 | P.PN ---
Progress Note - Text Progress Note Date: 08/02/21 Cathleen seen and evaluated again this afternoon. Following CAT scan at this time at least she is more comfort. She relates that the pain is only coming about 1-2 times an hour but is severe sharp and unrelenting for approximately 2- 3 minutes. This very consistent with contraction like pain. Reviewed CAT scan on 2 small clots potentially in the uterus but no other products or other findings that would be concerning for a matter peritoneum. Will plan close observational care for now. We did discuss possibly need to go to the operating room for exam under anesthesia and make sure there is nothing else that is noted. However, she relates that Dr. Paredes did do a deep internal exam due to her heavy vaginal bleeding following the deliveries with seems at least relatively unlikely that there is any other products that are going to be discovered. Instead she would like to at least try a [employer] for the pain for now. We'll write 4.2 per 10 minutes with no loading dose and see if this at least relieve some of the pain that she's been having. Likely can discontinue if pains improve. He did order amylase lipase liver enzymes and a CBC per CT findings.
[2021-08-02] MEDS ORDERED: MEASLES-MUMPS-RUBELLA VACC/PF 12,500 UNIT/0.5 ML VIAL SQ ONE (16:41)
[2021-08-02] MEDS ORDERED: HYDROmorphone PCA 10 MG/50 ML BAG IV PRN (16:45)
[2021-08-02 17:10] LABS: ALT 12 U/L (4-34); AST 27 U/L (14-36); Amylase 37 U/L (30-110); Lipase 257 U/L (23-300)
[2021-08-02 17:20] LABS: Basophils % (A) 0 %; Eosinophils # (A) 0.2 k/uL (0-0.7); Eosinophils % (A) 2 %; HCT 31.1 % (34.0-46.0); Hypochromasia Slight; Lymphocytes # (A) 1.8 k/uL (1.0-4.8); Lymphocytes % (A) 21 %; MCH 25.6 pg (25.0-35.0); MCHC 32.2 g/dL (31.0-37.0); MCV 79.5 fL (80.0-100.0); Mean Platelet Volume 8.7; Monocytes # (A) 0.4 k/uL (0-1.0); Monocytes % (A) 5 %; Neutrophils # (A) 5.6 k/uL (1.3-7.7); Neutrophils % (A) 69 %; Platelet Count 257 k/uL (150-450); Poikilocytosis Slight; RBC 3.91 m/uL (3.80-5.40); RDW 15.9 % (11.5-15.5); WBC 8.1 k/uL (3.8-10.6)
[2021-08-02] MEDS: KETOROLAC 15 MG/ML 1 ML VIAL IVP SCH ×2 (20:24→21:18)
[2021-08-03] MEDS: ACETAMINOPHEN TAB 325 MG TAB PO PRN ×3 (00:26→19:32)
[2021-08-03] MEDS: KETOROLAC 15 MG/ML 1 ML VIAL IVP SCH ×2 (04:50→20:56)
[2021-08-03 07:51] LABS: Basophils % (A) 0 %; Eosinophils # (A) 0.4 k/uL (0-0.7); Eosinophils % (A) 4 %; HCT 28.6 % (34.0-46.0); HGB 9.1 gm/dL (11.4-16.0); Hypochromasia Moderate; Lymphocytes # (A) 2.9 k/uL (1.0-4.8); Lymphocytes % (A) 29 %; MCH 26.4 pg (25.0-35.0); MCHC 31.9 g/dL (31.0-37.0); MCV 82.6 fL (80.0-100.0); Mean Platelet Volume 7.9; Monocytes # (A) 0.4 k/uL (0-1.0); Monocytes % (A) 4 %; Neutrophils % (A) 61 %; Platelet Count 283 k/uL (150-450); Poikilocytosis Slight; RBC 3.46 m/uL (3.80-5.40); WBC 9.9 k/uL (3.8-10.6)
[2021-08-03] MEDS: SIMETHICONE 80 MG CHEWABLE PO PRN (08:02)
[2021-08-03] MEDS: SENNOSIDES-DOCUSATE SODIUM 1 EACH TAB PO SCH ×2 (08:02→19:32)
[2021-08-03] MEDS: IBUPROFEN 600 MG TAB PO PRN ×3 (09:00→22:55)
--- NOTE | 2021-08-03 12:32 | P.PNOBGVD ---
Subjective - Subjective Principal diagnosis: Status post normal vaginal delivery day #1 Interval history: Patient seen and examined. Denies nausea, vomiting, chest pain, shortness of breath or calf pain. She does get waves of cramping especially when she is nursing her the babies crying. Patient admits to not having a very high pain tolerance. I do believe this is just normal cramping after delivery for a grand multipara patient. Patient reports: Reports appetite normal, Reports voiding normally, Reports pain well controlled, Reports ambulating normally : doing well Objective - Latest Vital Signs Latest vital signs: Vital Signs Temp Pulse Resp BP Pulse Ox 08/03/21 08:00 98.4 F 77 16 119/62 97 08/03/21 00:00 97.7 F 69 18 129/85 100 08/02/21 20:00 98.3 F 72 18 132/83 100 08/02/21 15:25 98.0 F 74 16 131/85 Intake and Output 08/02/21 08/03/21 08/03/21 22:59 06:59 14:59 Other: # Voids 2 - Exam Lungs: bilateral: normal Chest: Normal S1, Normal S2 Extremities: Present: normal Abdomen: Present: normal appearance, soft Uterus: Present: normal, firm - Labs Labs: Abnormal Lab Results - Last 24 Hours (Table) 08/02/21 08/03/21 Range/Units 16:50 07:05 RBC 3.46 L (3.80-5.40) m/uL Hgb 10.0 L 9.1 L (11.4-16.0) gm/dL Hct 31.1 L 28.6 L (34.0-46.0) % MCV 79.5 L (80.0-100.0) fL RDW 15.9 H 16.0 H (11.5-15.5) % Assessment and Plan (1) Normal vaginal delivery Current Visit: No Status: Acute Code(s): O80 - ENCOUNTER FOR FULL-TERM UNCOMPLICATED DELIVERY SNOMED Code(s): 62104692 Plan: 1. Continue care 2. Alternate Motrin and Tylenol [id number]
--- NOTE | 2021-08-03 12:40 | P.MSEPDOC ---
Presenting Problems - Arrival Data Date of Arrival on Unit: 08/01/21 Time of Arrival on Unit: 23:42 Mode of Transport: Wheelchair - Complaint OB-Reason for Admission/Chief Complaint: Possible Onset of Labor Comment: Patient presents to triage with contractions that started around 2100 that are approxmiately 5 minutes apart Medical History - Information : 6 Para: 3 Term: 2 : 1 Abortions: Spontaneous or Elective: 2 Number of Living Children: 3 - Gestational Age Gestational Age by KARIME (wks/days): 38 Weeks and 5 Days - History Complications: Smoker Review of Systems - Review of Systems Constitutional: No problems Breast: No problems ENT: No problems Cardiovascular: No problems Respiratory: No problems Gastrointestinal: No problems Genitourinary: No problems Musculoskeletal: No problems Neurological: No problems Skin: No problems Vital Signs - Temperature Temperature: 98.4 F Temperature Source: Oral - Pulse Right Brachial Pulse Rate: 77 Pulse Assessment Method: Automatic Cuff - Respirations Respiratory Rate: 16 Oxygen Delivery Method: Room Air O2 Sat by Pulse Oximetry: 97 - Blood Pressure Right Arm Blood Pressure: 119/62 Blood Pressure Mean: 81 Blood Pressure Source: Automatic Cuff Medical Screen Scoring - Cervical Exam Dilation (cm): 7 Effacement (%): 90 Station: -2 Membranes: Intact - Uterine Contractions Frequency From (mins): 3 Frequency To (mins): 5 Duration From (seconds): 80 Duration To (seconds): 120 Intensity: Strong Resting: Soft to palpation - Assessment - Baby A Baseline FHR: 150 Heart Rate - NICHD Category: Category I (Normal) NST: Reactive Physician Notification - Physician Notified New Order Received: Yes - Notification Comment Comment: Discussed patient's pain is not controlled after multiple administrations of pain medications. Discussed that bleeding is within normal limits. That fundus is now firm and 2 below umbilicus, Patient given stadol, toradol, and tylenol. Physician states to get patient up to shower after recovery and then give her a one time dose of dilaudid 1mg iv push. Maternal Triage Index - Urgent/Priority 2 Urgent Priority 2: Yes Provider Notified: Lucila Paredes Provider Notified Time: 23:23 Criteria Met for Priority 2: 38 5/7 patient presents with contractions that are approximately 5 minutes apart, patient moaning and screaming with contractions, patient not able to sit still. Disposition - Disposition OB Disposition: Admit, LDRP Suite Transferred to:: Suite 6 I agree with the RN Medical Screening Exam: Yes Case reviewed; plan agreed upon as documented in EMR&OBIX.: Yes Diagnosis: ENCOUNTER FOR FULL-TERM UNCOMPLICATED DELIVERY
[2021-08-04 00:14] VITALS: RESP 16
[2021-08-04] MEDS: ACETAMINOPHEN TAB 325 MG TAB PO PRN ×2 (02:05→07:59)
[2021-08-04] MEDS: IBUPROFEN 600 MG TAB PO PRN (05:03)
--- NOTE | 2021-08-04 07:45 | P.DS ---
Providers Date of admission: 08/01/21 23:38 Expected date of discharge: 08/04/21 Attending physician: Lucila Paredes Primary care physician: Stated None - Discharge Diagnosis(es) (1) Normal vaginal delivery Current Visit: No Status: Acute Hospital Course: Pt presented in active labor. She underwent a normal vaginal delivery. PP she did have waves of cramping that were extremely painful to her. She had a workup that was negative. Her pain is improved now with motrin and tylenol. She will be discharged home PPD #2 instable condition to follow up with me in 6 weeks. Plan - Discharge Summary New Discharge Prescriptions: New Ibuprofen [Motrin] 600 mg PO Q6HR PRN #30 tab PRN Reason: Mild Pain Or Fever >= 100.5 No Action Pnv No.95/Ferrous Fum/Folic AC [ Multivitamin Tablet] 1 tab PO DAILY Folic Acid 1 mg PO DAILY Dextroamphetamine/Amphetamine [Adderall] 40 mg PO DAILY Discharge Medication List Pnv No.95/Ferrous Fum/Folic AC [ Multivitamin Tablet] 1 tab PO DAILY 08/10/19 [History] Dextroamphetamine/Amphetamine [Adderall] 40 mg PO DAILY 03/28/21 [History] Folic Acid 1 mg PO DAILY 03/28/21 [History] Ibuprofen [Motrin] 600 mg PO Q6HR PRN #30 tab 08/04/21 [Rx] Follow up Appointment(s)/Referral(s): Lucila Paredes DO [Doctor of Osteopathic Medicine] - 09/14/21 10:45 am
[2021-08-04] MEDS: SENNOSIDES-DOCUSATE SODIUM 1 EACH TAB PO SCH (07:59)
[2021-08-04 08:43] VITALS: BP 127/69; PULSE 80; TEMP 98.1
== END 2021-08-04 11:45 | disposition home or self-care (01) | DRG 807 ==
LOC: FBPOP 23:28 → 4FBP 23:38
PROVIDERS: ADMIT Obstetrics & Gynecology; ATTEND Obstetrics & Gynecology
PROC: 10E0XZZ Delivery of Products of Conception, External Approach (ICD-10-PCS; principal; 2021-08-02)
DX: O99.334 Smoking (tobacco) complicating childbirth (principal); Z37.0 Single live birth; O99.344 Other mental disorders complicating childbirth; O77.0 Labor and delivery complicated by meconium in amniotic fluid; F41.9 Anxiety disorder, unspecified; F31.9 Bipolar disorder, unspecified; F17.200 Nicotine dependence, unspecified, uncomplicated; Z82.49 Family history of ischemic heart disease and other diseases of the circulatory system; Z80.1 Family history of malignant neoplasm of trachea, bronchus and lung
CPT/HCPCS: 59025; 74176; 82150; 83690; 84450; 84460; 85025; 86850; 86900; 86901; 90707; 99213

== ENCOUNTER 2022-11-25 19:46 | Inpatient (IN) | payer BC ==
[2022-11-25] MEDS ORDERED: ONDANSETRON 4 MG/2 ML VIAL IVP STA (20:43)
[2022-11-25 20:54] LABS: Basophils % (A) 0 %; Eosinophils # (A) 0.1 k/uL (0-0.7); Eosinophils % (A) 1 %; HCT 42.4 % (34.0-46.0); HGB 14.1 gm/dL (11.4-16.0); Lymphocytes # (A) 0.9 k/uL (1.0-4.8); Lymphocytes % (A) 7 %; MCH 30.2 pg (25.0-35.0); MCHC 33.2 g/dL (31.0-37.0); MCV 90.9 fL (80.0-100.0); Mean Platelet Volume 6.7; Monocytes # (A) 0.2 k/uL (0-1.0); Monocytes % (A) 2 %; Neutrophils % (A) 89 %; Platelet Count 340 k/uL (150-450); RBC 4.66 m/uL (3.80-5.40); RDW 13.6 % (11.5-15.5); WBC 12.4 k/uL (3.8-10.6)
[2022-11-25 21:07] LABS: Appearance,Urine Turbid (Clear); Bacteria,Urine Moderate /hpf; Bilirubin,Urine Negative (Negative); Blood,Urine Large (Negative); Budding Yeast,Urine Moderate /hpf; Color,Urine Yellow; Glucose,Urine (UA) Negative (Negative); Ketones,Urine 3+ (Negative); Leukocyte Esterase,Urine Large (Negative); Mucus,Urine Few /hpf; Nitrite,Urine Positive (Negative); Protein,Urine 2+ (Negative); RBC,Urine 40 /hpf (0-5); Specific Gravity,Urine 1.017 (1.001-1.035); Squamous Epithelial Cell,Urine 8 /hpf (0-4); Urobilinogen,Urine <2.0 mg/dL (<2.0); WBC,Urine >182 /hpf (0-5)
[2022-11-25 21:08] LABS: ALT 19 U/L (4-34); AST 19 U/L (14-36); African American GFR (CKD) >90 (>60 ml/min/1.73 sqM); Albumin 4.4 g/dL (3.5-5.0); Alkaline Phosphatase 78 U/L (38-126); Amylase 49 U/L (30-110); Anion Gap 7 mmol/L; Blood Urea Nitrogen 11 mg/dL (7-17); Calcium 9.2 mg/dL (8.4-10.2); Carbon Dioxide 27 mmol/L (22-30); Chloride 100 mmol/L (98-107); Glucose 99 mg/dL (74-99); Lipase 83 U/L (23-300); Non-African American GFR(CKD) >90 (>60 ml/min/1.73 sqM); Potassium 4.3 mmol/L (3.5-5.1); Sodium 134 mmol/L (137-145); Total Bilirubin 0.8 mg/dL (0.2-1.3); Total Protein 7.2 g/dL (6.3-8.2)
[2022-11-25] MEDS ORDERED: MORPHINE SULFATE 4 MG/ML SYRINGE IVP STA (21:12)
--- NOTE | 2022-11-25 21:13 | ED ---
Abdominal Pain HPI - General Chief Complaint: Abdominal Pain Stated Complaint: Back & Abd Pain Time Seen by Provider: 11/25/22 20:41 Source: patient, RN notes reviewed Mode of arrival: ambulatory Limitations: no limitations - History of Present Illness Initial Comments: Patient is a 32-year-old female presenting to the emergency room with complaints of severe abdominal pain with nausea and vomiting ongoing for approximately 48 hours. She reports one episode of emesis today and one yesterday. She reports that her abdominal pain is worsening and intensity and began in the right lower quadrant but now with a seems to be radiating throu ghout her entire abdomen. She reports fevers but is unable to give a temperature reading. She is unsure of her last menstrual cycle as they are very regular due to history of PCO S. She reports that despite her PCO S history she has not had abdominal pain similar to this in the past. She denies any chest pain, shortness of breath, dysuria, urinary frequency, or diarrhea. She denies any other signi ficant past medical history. - Related Data Home Medications Medication Instructions Recorded Confirmed Pnv No.95/Ferrous Fum/Folic AC 1 tab PO DAILY 08/10/19 08/04/21 [ Multivitamin Tablet] Dextroamphetamine/Amphetamine 40 mg PO DAILY 03/28/21 08/04/21 [Adderall] Folic Acid 1 mg PO DAILY 03/28/21 08/04/21 Previous Rx's Medication Instructions Recorded Ibuprofen [Motrin] 600 mg PO Q6HR PRN #30 tab 08/04/21 Allergies Allergy/AdvReac Type Severity Reaction Status Date / Time lamotrigine [From Lamictal] Allergy Severe Rash/Hives Verified 11/25/22 20:01 Review of Systems ROS Statement: Those systems with pertinent positive or pertinent negative responses have been documented in the HPI. ROS Other: All systems not noted in ROS Statement are negative. Past Medical History Additional Past Medical History / Comment(s): PCOS. Obstetric history: She has had 3 vaginal deliveries, 1 spontaneous , 1 ectopic . This is her sixth and she's had care with me since the beginning of the . Blood type B positive, antibodies negative, rubella nonimmune, hepatitis B-, GBS negative, RPR nonreactive History of Any Multi-Drug Resistant Organisms: None Reported Past Surgical History: No Surgical Hx Reported Additional Past Surgical History / Comment(s): tubes in ears as a child, left tube removed. Past Anesthesia/Blood Transfusion Reactions: Postoperative Nausea & Vomiting (PONV) Past Psychological History: Anxiety, Bipolar, Depression Smoking Status: Current every day smoker Past Alcohol Use History: None Reported Past Drug Use History: None Reported - Past Family History Mother Family Medical History: Cancer Additional Family Medical History / Comment(s): stage 3 lung ca, brain aneursym Father History Unknown: Yes Family Medical History: Myocardial Infarction (NE) General Exam - General Exam Comments Initial Comments: GENERAL: No acute distress, well developed, well nourished. HEENT: Normocephalic, atraumatic. Pupils equal, round, reactive to light. Moist mucous membranes. LUNGS: No respiratory distress. Clear to auscultation, no adventitious sounds, no use of accessory muscles. HEART: Regular rate and rhythm without murmur, rub, or gallop. ABDOMEN: Normal bowel sounds. Soft, non-distended. Tenderness moderate RLQ and mild diffusely. BACK: Normal inspection. R CVA tenderness. EXTREMITIES: No edema. No tenderness. Moves all extremities. NEUROLOGIC: Alert & oriented x 3. CN II-XII grossly intact. PSYCHIATRIC: Normal affect and behavior. DERMATOLOGIC: Skin intact, without rashes or lesions noted. Limitations: no limitations Course Vital Signs 11/25/22 19:59 Temperature 97.8 F Pulse Rate 107 H Respiratory 18 Rate Blood Pressure 115/68 O2 Sat by Pulse 97 Oximetry Medical Decision Making - Medical Decision Making Was pt. sent in by a medical professional or institution (, PA, LEASING PROFESSIONAL, urgent care, hospital, or fci...) When possible be specific @ -No Did you speak to anyone other than the patient for history (EMS, parent, family, police, friend...)? What history was obtained from this source @ -No Did you review nursing and triage notes (agree or disagree)? Why? @ -I reviewed and agree with nursing and triage notes Were old charts reviewed (outside hosp., previous admission, EMS record, old E KG, old radiological studies, urgent care reports/EKG's, fci records)? Report findings @ -No old charts were reviewed Differential Diagnosis (chest pain, altered mental status, abdominal pain women, abdominal pain men, vaginal bleeding, weakness, fever, dyspnea, syncope, headache, dizziness, GI bleed, back pain, seizure, CVA, palpatations, mental hea lth)? @ -Differential Abdominal Pain Women: Appendicitis, Cholecystitis, diverticulosis, ischemic bowel, pancreatitis, hepatitis, UTI, gastroenteritis, AAA, incarcerated hernia, bowel obstruction, constipation, inflammatory bowel, hepatitis, peptic ulcer disease, splenic infarction, perforated viscus, vulvitis, ovarian torsion, PID, kidney stone, placenta abruption, this is not meant to be an all-inclusive list EKG interpreted by me (3pts min.). @ -None done X-rays interpreted by me (1pt min.). @ -None done CT interpreted by me (1pt min.). @ -CT abdomen pelvis without contrast Normal appendix. Renal calculi right ureter. U/S interpreted by me (1pt. min.). @ -None done What testing was considered but not performed or refused? (CT, X-rays, U/S, labs)? Why? @ -Ultrasound considered but deferred CT obtained What meds were considered but not given or refused? Why? @ -None Did you discuss the management of the patient with other professionals (professionals i.e. , PA, LEASING PROFESSIONAL, lab, RT, psych nurse, director of social media marketing, director of database marketing, teacher, ambulance officer, caseworker)? Give summary @ -Dr. Watkins regarding recommendation for admission and excepting of admission. Dr. mcmahon with urology regarding evaluation and treatment of potential infected urinary calculi. Was smoking cessation discussed for >3mins.? @ -No Was critical care preformed (if so, how long)? @ -No Were there social determinants of health that impacted care today? How? (Homelessness, low income, unemployed, alcoholism, drug addiction, transportatio n, low edu. Level, literacy, decrease access to med. care, [facility], rehab)? @ -No Was there de-escalation of care discussed even if they declined (Discuss DNR or withdrawal of care, Hospice)? DNR status @ -No What co-morbidities impacted this encounter? (DM, HTN, Smoking, COPD, CAD, Cancer, CVA, ARF, Chemo, Hep., AIDS, mental health diagnosis, sleep apnea, morbid obesity)? @ -None Was patient admitted / discharged? Hospital course, mention meds given and route, prescriptions, significant lab abnormalities, going to OR and other pertinent info. @ -32-year-old female presenting with right abdominal pain radiating posteriorly ongoing for approximately 48 hours and worsening and intensity. Will give pain medication of morphine along with Zofran for nausea as she reports nausea with pain medication. Will obtain laboratory studies of CBC, CMP, amylase, lipase, lactic acid along with 4-plex to evaluate for viral etiology for nausea and vomiting. Currently afebrile. Will obtain CT of the abdomen and pelvis Mild leukocytosis noted on CBC. CMP without significant abnormalities. Amylase and lipase normal. Swabs negative for Covid and influenza. Lactic acid normal. Urinalysis revealed significant nitrates and blood along with ketones and moderate bacteria along with moderate budding yeast. Urine for hCG is negative. CT of the abdomen reveals renal calculi. Pain persist after morphine will give IV fluid bolus and Toradol. Pain persists despite Toradol and IV fluid bolus. Will give Dilaudid for pain. Due to persistent pain mild leukocytosis and urinalysis recommend admission for intractable pain and treatment for possible infected urinary calculi without evidence of sepsis. Spoke with Dr. Watkins regarding admission recommendation he is accepting of admission. Urology consult did and contacted regarding patient. Rocephin antibiotic given. Will continue hydration and pain control. Order for nothing by mouth after midnight given by urology. No further orders received at this time. Will place admission orders. Patient to be admitted for intractable pain along with infected urinary calculi. Undiagnosed new problem with uncertain prognosis? @ -No Drug Therapy requiring intensive monitoring for toxicity (Heparin, Nitro, Insulin, Cardizem)? @ -No Were any procedures done? @ -No Diagnosis/symptom? @ -Urinary calculi Acute, or Chronic, or Acute on Chronic? @ -Acute Uncomplicated (without systemic symptoms) or Complicated (systemic symptoms)? @ -Complicated Side effects of treatment? @ -No Exacerbation, Progression, or Severe Exacerbation? @ -No Poses a threat to life or bodily function? How? (Chest pain, [place], [place], pneumonia, PE, COPD, DKA, ARF, appy, cholecystitis, CVA, Diverticulitis, Homicidal, Suicidal, threat to staff... and all critical care pts) @ -No Diagnosis/symptom? @ -UTI Acute, or Chronic, or Acute on Chronic? @ -Acute Uncomplicated (without systemic symptoms) or Complicated (systemic symptoms)? @ -Complicated due to above Side effects of treatment? @ -none Exacerbation, Progression, or Severe Exacerbation] @ -no Poses a threat to life or bodily function? @ -no Case discussed with Dr. Herman. - Lab Data Result diagrams: 11/25/22 20:51 11/25/22 20:51 Lab Results 11/25/22 11/25/22 11/25/22 Range/Units 20:51 20:51 20:51 WBC 12.4 H (3.8-10.6) k/uL RBC 4.66 (3.80-5.40) m/uL Hgb 14.1 (11.4-16.0) gm/dL Hct 42.4 (34.0-46.0) % MCV 90.9 (80.0-100.0) fL MCH 30.2 (25.0-35.0) pg MCHC 33.2 (31.0-37.0) g/dL RDW 13.6 (11.5-15.5) % Plt Count 340 (150-450) k/uL MPV 6.7 Neutrophils % 89 % Lymphocytes % 7 % Monocytes % 2 % Eosinophils % 1 % Basophils % 0 % Neutrophils # 11.0 H (1.3-7.7) k/uL Lymphocytes # 0.9 L (1.0-4.8) k/uL Monocytes # 0.2 (0-1.0) k/uL Eosinophils # 0.1 (0-0.7) k/uL Basophils # 0.0 (0-0.2) k/uL Sodium (137-145) mmol/L Potassium (3.5-5.1) mmol/L Chloride (98-107) mmol/L Carbon Dioxide (22-30) mmol/L Anion Gap mmol/L BUN (7-17) mg/dL Creatinine (0.52-1.04) mg/dL Est GFR (CKD-EPI)AfAm (>60 ml/min/1.73 sqM) Est GFR (CKD-EPI)NonAf (>60 ml/min/1.73 sqM) Glucose (74-99) mg/dL Plasma Lactic Acid Noah (0.7-2.0) mmol/L Calcium (8.4-10.2) mg/dL Total Bilirubin (0.2-1.3) mg/dL AST (14-36) U/L ALT (4-34) U/L Alkaline Phosphatase (38-126) U/L Total Protein (6.3-8.2) g/dL Albumin (3.5-5.0) g/dL Amylase (30-110) U/L Lipase (23-300) U/L Urine Color Yellow Urine Appearance Turbid H (Clear) Urine pH 6.0 (5.0-8.0) Ur Specific [place] 1.017 (1.001-1.035) Urine Protein 2+ H (Negative) Urine Glucose (UA) Negative (Negative) Urine Ketones 3+ H (Negative) Urine Blood Large H (Negative) Urine Nitrite Positive H (Negative) Urine Bilirubin Negative (Negative) Urine Urobilinogen <2.0 (<2.0) mg/dL Ur Leukocyte Esterase Large H (Negative) Urine RBC 40 H (0-5) /hpf Urine WBC >182 H (0-5) /hpf Urine WBC Clumps Many H (None) /hpf Ur Squamous Epith Cells 8 H (0-4) /hpf Urine Bacteria Moderate H (None) /hpf Urine Mucus Few H (None) /hpf Urine Yeast (Budding) Moderate H (None) /hpf Urine HCG, Qual Not Detected (Not Detectd) Influenza Type A (PCR) (Not Detectd) Influenza Type B (PCR) (Not Detectd) RSV (PCR) (Not Detectd) SARS-CoV-2 (PCR) (Not Detectd) 11/25/22 11/25/22 11/25/22 Range/Units 20:51 20:51 21:30 WBC (3.8-10.6) k/uL RBC (3.80-5.40) m/uL Hgb (11.4-16.0) gm/dL Hct (34.0-46.0) % MCV (80.0-100.0) fL MCH (25.0-35.0) pg MCHC (31.0-37.0) g/dL RDW (11.5-15.5) % Plt Count (150-450) k/uL MPV Neutrophils % % Lymphocytes % % Monocytes % % Eosinophils % % Basophils % % Neutrophils # (1.3-7.7) k/uL Lymphocytes # (1.0-4.8) k/uL Monocytes # (0-1.0) k/uL Eosinophils # (0-0.7) k/uL Basophils # (0-0.2) k/uL Sodium 134 L (137-145) mmol/L Potassium 4.3 (3.5-5.1) mmol/L Chloride 100 (98-107) mmol/L Carbon Dioxide 27 (22-30) mmol/L Anion Gap 7 mmol/L BUN 11 (7-17) mg/dL Creatinine 0.76 (0.52-1.04) mg/dL Est GFR (CKD-EPI)AfAm >90 (>60 ml/min/1.73 sqM) Est GFR (CKD-EPI)NonAf >90 (>60 ml/min/1.73 sqM) Glucose 99 (74-99) mg/dL Plasma Lactic Acid Noah 0.8 (0.7-2.0) mmol/L Calcium 9.2 (8.4-10.2) mg/dL Total Bilirubin 0.8 (0.2-1.3) mg/dL AST 19 (14-36) U/L ALT 19 (4-34) U/L Alkaline Phosphatase 78 (38-126) U/L Total Protein 7.2 (6.3-8.2) g/dL Albumin 4.4 (3.5-5.0) g/dL Amylase 49 (30-110) U/L Lipase 83 (23-300) U/L Urine Color Urine Appearance (Clear) Urine pH (5.0-8.0) Ur Specific [place] (1.001-1.035) Urine Protein (Negative) Urine Glucose (UA) (Negative) Urine Ketones (Negative) Urine Blood (Negative) Urine Nitrite (Negative) Urine Bilirubin (Negative) Urine Urobilinogen (<2.0) mg/dL Ur Leukocyte Esterase (Negative) Urine RBC (0-5) /hpf Urine WBC (0-5) /hpf Urine WBC Clumps (None) /hpf Ur Squamous Epith Cells (0-4) /hpf Urine Bacteria (None) /hpf Urine Mucus (None) /hpf Urine Yeast (Budding) (None) /hpf Urine HCG, Qual (Not Detectd) Influenza Type A (PCR) Not Detected (Not Detectd) Influenza Type B (PCR) Not Detected (Not Detectd) RSV (PCR) Not Detected (Not Detectd) SARS-CoV-2 (PCR) Not Detected (Not Detectd) Disposition Clinical Impression: Urinary calculi, UTI (urinary tract infection), Yeast UTI Disposition: ADMITTED IP TO THIS HOSP Condition: Stable Referrals: Carmelo Watkins MD [Primary Care Provider] - 1-2 days Time of Disposition: 23:19
--- NOTE | 2022-11-25 21:55 | CT ---
EXAMINATION TYPE: CT abdomen pelvis wo con DATE OF EXAM: 11/25/2022 COMPARISON: 08/02/2021 HISTORY: abd pain CT DLP: 430.4 mGycm Automated exposure control for dose reduction was used. Images obtained from the diaphragm to the floor of the pelvis with no contrast. The lung bases are clear. No pleural effusion. Heart size is normal. No pericardial effusion. Liver spleen and stomach pancreas gallbladder appear intact. The bile pressure not dilated. There is no adrenal mass. Kidneys show normal size. There is some fullness of the right renal pelvis. There is a 6 mm calcification in the pelvis on the right side that could be an the distal right uret er. Exam limited by lack of any contrast. The appendix appears normal. Uterus is anteverted. No pelvi c mass. No free fluid in the pelvis. Bladder distends smoothly. No inguinal hernia. There is no mesenteric edema. No ascites or free air. No sign of a bowel obstruction. The lumbar vertebra appear intact. No compression fracture. The bony pelvis is intact. IMPRESSION: Normal appendix. Possible obstruction of the right upper collecting system. Possible distal right ure teral calculus. Limited exam.
[2022-11-25] MEDS ORDERED: SODIUM CHLORIDE 0.9% 1,000 ML IV STA (22:15)
[2022-11-25] MEDS ORDERED: KETOROLAC 15 MG/ML 1 ML VIAL IVP STA (22:16)
[2022-11-25] MEDS ORDERED: HYDROmorphone 0.5 MG/0.5 ML SYRINGE IVP STA (23:11)
[2022-11-25] MEDS ORDERED: cefTRIAXone IN SWFI 1,000 MG/10 ML SYRINGE IVP STA (23:15)
[2022-11-25] MEDS ORDERED: traMADol 50 MG TAB PO PRN (23:20)
[2022-11-25] MEDS ORDERED: NALOXONE 0.4 MG/ML 1 ML VIAL IV PRN (23:20)
[2022-11-25] MEDS: HYDROmorphone 1 MG/ML 1 ML SYRINGE IVP PRN (23:41)
[2022-11-25] MEDS: SODIUM CHLORIDE 0.9% 1,000 ML IV SCH (23:57)
[2022-11-26] MEDS: ACETAMINOPHEN TAB 325 MG TAB PO PRN (01:15)
[2022-11-26] MEDS: HYDROmorphone 1 MG/ML 1 ML SYRINGE IVP PRN ×5 (04:56→21:49)
[2022-11-26] MEDS: ONDANSETRON 4 MG/2 ML VIAL IVP PRN (09:07)
[2022-11-26] MEDS ORDERED: fentaNYL (PF) 50 MCG/1 ML VIAL IVP ONE (11:40)
[2022-11-26] MEDS ORDERED: SCOPOLAMINE 1 MG/72 HR PATCH TRANSDERM ONE (11:41)
[2022-11-26] MEDS ORDERED: DEXAMETHASONE SOD PHOSPHATE 4 MG/ML 1 ML VIAL IVP ONE (11:41)
[2022-11-26] MEDS ORDERED: ONDANSETRON 4 MG/2 ML VIAL IVP ONE (11:41)
--- NOTE | 2022-11-26 12:02 | P.GSCN ---
History of Present Illness Consult date: 12/03/22 Reason for Consult: Ureteral stone History of present illness: This is a 32-year-old female presented to the hospital with right flank pain ass ociated with fevers. Underwent a CT abdomen and pelvis that showed evidence of right-sided hydronephrosis, and a 6 mm right-sided distal ureteral stone. Denies any previous history of stones. Indicates the pain has been associated with suprapubic abdominal pain, with nausea and vomiting. Denies any previous history of stone. Does have a family history of kidney stones in the past. This morning on evaluation indicates she still having persistent pain. Urinalysis on presentation concerning for UTI, current urine culture is pending Review of Systems - Constitutional Reports chills, Reports fever - EENT Ears, nose, mouth and throat: Denies dysphagia - Cardiovascular Denies chest pain, Denies shortness of breath - Respiratory Denies cough, Denies 7 - Gastrointestinal Reports abdominal pain - Genitourinary Genitourinary: Reports dysuria, Reports flank pain - Neurological Denies headaches, Denies syncope Past Medical History Past Medical History: No Reported History Additional Past Medical History / Comment(s): PCOS. Obstetric history: She has had 3 vaginal deliveries, 1 spontaneous , 1 ectopic . This is her sixth and she's had care with me since the beginning of the . Blood type B positive, antibodies negative, rubella nonimmune, hepatitis B-, GBS negative, RPR nonreactive History of Any Multi-Drug Resistant Organisms: None Reported Past Surgical History: No Surgical Hx Reported Additional Past Surgical History / Comment(s): tubes in ears as a child, left tube removed. Past Anesthesia/Blood Transfusion Reactions: Postoperative Nausea & Vomiting (PONV) Past Psychological History: Anxiety, Bipolar, Depression Additional Psychological History / Comment(s): as a teenager Smoking Status: Current every day smoker, Vaper Past Alcohol Use History: None Reported Past Drug Use History: Marijuana - Past Family History Mother Family Medical History: Cancer Additional Family Medical History / Comment(s): stage 3 lung ca, brain aneursym Father History Unknown: Yes Family Medical History: Myocardial Infarction ([place]) Medications and Allergies Home Medications Medication Instructions Recorded Confirmed Type Dextroamphetamine/Amphetamine 30 mg PO BID 11/26/22 11/26/22 History [Adderall] QUEtiapine XR [SEROquel XR] 50 mg PO HS 11/26/22 11/26/22 History Allergies Allergy/AdvReac Type Severity Reaction Status Date / Time lamotrigine [From Lamictal] Allergy Severe Rash/Hives Verified 11/26/22 10:49 Surgical - Exam Vital Signs Temp Pulse Resp BP Pulse Ox 97.8 F 107 H 18 115/68 97 11/25/22 19:59 11/25/22 19:59 11/25/22 19:59 11/25/22 19:59 11/25/22 19:59 - General no distress, severe pain - Eyes normal ocular movement, no pale - ENT normal nares, normal mucosa - Respiratory normal expansion, normal respiratory effort - Abdomen Abdomen: soft, non tender - Psychiatric oriented to time, oriented to person, oriented to place Results - Labs 11/25/22 20:51 11/25/22 20:51 Abnormal Lab Results - Last 24 Hours (Table) 11/25/22 11/25/22 11/25/22 Range/Units 20:51 20:51 20:51 WBC 12.4 H (3.8-10.6) k/uL Neutrophils # 11.0 H (1.3-7.7) k/uL Lymphocytes # 0.9 L (1.0-4.8) k/uL Sodium 134 L (137-145) mmol/L Urine Appearance Turbid H (Clear) Urine Protein 2+ H (Negative) Urine Ketones 3+ H (Negative) Urine Blood Large H (Negative) Urine Nitrite Positive H (Negative) Ur Leukocyte Esterase Large H (Negative) Urine RBC 40 H (0-5) /hpf Urine WBC >182 H (0-5) /hpf Urine WBC Clumps Many H (None) /hpf Ur Squamous Epith Cells 8 H (0-4) /hpf Urine Bacteria Moderate H (None) /hpf Urine Mucus Few H (None) /hpf Urine Yeast (Budding) Moderate H (None) /hpf Microbiology - Last 24 Hours (Table) 11/25/22 20:51 Urine Culture - Preliminary Urine,Clean Catch Diabetes panel 11/25/22 Range/Units 20:51 Sodium 134 L (137-145) mmol/L Potassium 4.3 (3.5-5.1) mmol/L Chloride 100 (98-107) mmol/L Carbon Dioxide 27 (22-30) mmol/L BUN 11 (7-17) mg/dL Creatinine 0.76 (0.52-1.04) mg/dL Glucose 99 (74-99) mg/dL Calcium 9.2 (8.4-10.2) mg/dL AST 19 (14-36) U/L ALT 19 (4-34) U/L Alkaline Phosphatase 78 (38-126) U/L Total Protein 7.2 (6.3-8.2) g/dL Albumin 4.4 (3.5-5.0) g/dL Calcium panel 11/25/22 Range/Units 20:51 Calcium 9.2 (8.4-10.2) mg/dL Albumin 4.4 (3.5-5.0) g/dL Pituitary panel 11/25/22 Range/Units 20:51 Sodium 134 L (137-145) mmol/L Potassium 4.3 (3.5-5.1) mmol/L Chloride 100 (98-107) mmol/L Carbon Dioxide 27 (22-30) mmol/L BUN 11 (7-17) mg/dL Creatinine 0.76 (0.52-1.04) mg/dL Glucose 99 (74-99) mg/dL Calcium 9.2 (8.4-10.2) mg/dL Adrenal panel 11/25/22 Range/Units 20:51 Sodium 134 L (137-145) mmol/L Potassium 4.3 (3.5-5.1) mmol/L Chloride 100 (98-107) mmol/L Carbon Dioxide 27 (22-30) mmol/L BUN 11 (7-17) mg/dL Creatinine 0.76 (0.52-1.04) mg/dL Glucose 99 (74-99) mg/dL Calcium 9.2 (8.4-10.2) mg/dL Total Bilirubin 0.8 (0.2-1.3) mg/dL AST 19 (14-36) U/L ALT 19 (4-34) U/L Alkaline Phosphatase 78 (38-126) U/L Total Protein 7.2 (6.3-8.2) g/dL Albumin 4.4 (3.5-5.0) g/dL - Imaging CT scan - abdomen: image reviewed (Mild right-sided hydronephrosis, 6 cm right- sided distal stone) Assessment and Plan Assessment: 32-year-old female presents to the hospital with a 6 mm right-sided obstructing stone, and a UTI. Discussed with her given the UTI and her symptomatic flank pain, I recommend proceeding with stent insertion. Risk-benefit and alternative of the surgery was discussed with her in detail. Discussed with her this is not a definitive way to manage the stone and she will require right-sided ureteroscopy with holmium laser the future -Continue IV antibiotics -Follow up on urine culture -OR for cystoscopy and right stent insertion
[2022-11-26] MEDS ORDERED: SUCCINYLCHOLINE CHLORIDE 200 MG/10 ML VIAL IV ONE (12:07)
[2022-11-26] MEDS ORDERED: MIDAZOLAM 2 MG/2 ML VIAL ONE (12:07)
[2022-11-26] MEDS ORDERED: fentaNYL (PF) 50 MCG/ML 2 ML AMP ONE (12:07)
[2022-11-26] MEDS ORDERED: LIDOCAINE 2% INJ 20 MG/ML (2 ML VIAL) ONE (12:07)
[2022-11-26] MEDS ORDERED: PROPOFOL 10 MG/ML 20 ML VIAL IV ONE (12:07)
[2022-11-26] MEDS ORDERED: LACTATED RINGERS 1,000 ML IV ONE (12:11)
[2022-11-26] MEDS ORDERED: SODIUM CHLORIDE 0.9% 50 ML with ceFAZolin 2,000 MG IV ONE ×2 (12:27)
--- NOTE | 2022-11-26 12:50 | P.OP ---
Date of Procedure: 11/26/22 Preoperative Diagnosis: Right ureteral stone Postoperative Diagnosis: same Procedure(s) Performed: cystoscopy, right stent insertion Implants: 6-Cameroonian by 24 cm stent in the ureter Anesthesia: JACKIE Surgeon: Cheng Varner Estimated Blood Loss (ml): 1 Pathology: none sent Condition: stable Disposition: PACU Indications for Procedure: 32-year-old female presents to the hospital with a 6 mm right-sided obstructing stone, and a UTI. Discussed with her given the UTI and her symptomatic flank pain, I recommend proceeding with stent insertion. Risk-benefit and alternative of the surgery was discussed with her in detail. Discussed with her this is not a definitive way to manage the stone and she will require right-sided ureteroscopy with holmium laser the future Description of Procedure: Patient brought to the operating room, general anesthesia was induced. She was prepped and draped in sterile fashion and placed in dorsal lithotomy position. Cystoscopy fitted with 21-Cam[place]onian sheath was inserted per urethra, cystoscopy was performed showed no abnormality within the bladder. Attention was then carried to the right ureteral orifice which was intubated with a sensor wire. Next a ureteral stent was passed over the wire, the proximal curl was visualized on fluoroscopy and the distal curl was visualized using cystoscope. Cloudy urine was drained from the collecting system. Patient tolerated the procedure well was taken to recovery in stable condition
--- NOTE | 2022-11-26 12:52 | FL ---
Intraoperative/procedural fluoroscopic services were provided. Total fluoroscopy time is 2 seconds se conds with a total of 3 submitted images to PACS. Please see the operative/procedural note for furthe r details.
[2022-11-26] MEDS ORDERED: METOCLOPRAMIDE 5 MG/ML 2 ML VIAL IVP ONE (13:15)
--- NOTE | 2022-11-26 15:22 | P.CONS ---
History of Present Illness - Reason for Consult Consult date: 11/26/22 Urosepsis Requesting physician: Carmelo Watkins - Chief Complaint Right-sided abdominal pain x 2 days - History of Present Illness Patient is a 32-year-old female presenting to the ER last night complaining of right-sided abdominal pain apparently started 2 days before presentation to the hospital pain has been mostly in the right flank and right lower quadrant area intensity is almost 10 out of 10 and some radiation across abdomen on presentation to the hospital patient did have associated nausea and vomiting denies having any diarrhea or constipation has been complaining of fever and chills with these symptoms the patient was evaluated on arrival to the ER patient did have low-grade fever of 99.4F patient did have white count of 12.4 with a left shift kidney function was normal at first were normal liver enzymes are normal patient did have a positive UA with large leukocyte esterase more than 1-2 WBC influenza RSV covid PCR was negative, patient did have a CT of abdominal pelvis normal appendix possible obstruction of the right upper collecting system possible distal right ureteral calculus patient was subsequently taken to the OR and is status post cystoscopy and right ureteral stent placed in patient was started on Rocephin and infectious disease was consulted for further management of antibiotic therapy patient is currently complaining of significant discomfort with urination and did have some blood in the urine Review of Systems Positive point has been mentioned in the HPI rest of the systems are negative Past Medical History Past Medical History: No Reported History Additional Past Medical History / Comment(s): PCOS. Obstetric history: She has had 3 vaginal deliveries, 1 spontaneous , 1 ectopic . This is her sixth and she's had care with me since the beginning of the . Blood type B positive, antibodies negative, rubella nonimmune, hepatitis B-, GBS negative, RPR nonreactive History of Any Multi-Drug Resistant Organisms: None Reported Past Surgical History: No Surgical Hx Reported Additional Past Surgical History / Comment(s): tubes in ears as a child, left tube removed. Past Anesthesia/Blood Transfusion Reactions: Postoperative Nausea & Vomiting (PONV) Past Psychological History: Anxiety, Bipolar, Depression Additional Psychological History / Comment(s): as a teenager Smoking Status: Current every day smoker, Vaper Past Alcohol Use History: None Reported Past Drug Use History: Marijuana - Past Family History Mother Family Medical History: Cancer Additional Family Medical History / Comment(s): stage 3 lung ca, brain aneursym Father History Unknown: Yes Family Medical History: Myocardial Infarction ([place]) Medications and Allergies Home Medications Medication Instructions Recorded Confirmed Type Dextroamphetamine/Amphetamine 30 mg PO BID 11/26/22 11/26/22 History [Adderall] QUEtiapine XR [SEROquel XR] 50 mg PO HS 11/26/22 11/26/22 History Phenazopyridine [Pyridium] 200 mg PO TID tab 11/28/22 Rx cefUROXime axetiL [Ceftin] 500 mg PO BID 10 Days #20 tab 11/28/22 Rx Allergies Allergy/AdvReac Type Severity Reaction Status Date / Time lamotrigine [From Lamictal] Allergy Severe Rash/Hives Verified 11/26/22 10:49 Physical Exam Vitals: Vital Signs Temp Pulse Pulse Resp BP BP Pulse Ox 11/26/22 13:20 93 16 104/59 95 11/26/22 13:01 91 16 103/61 96 11/26/22 12:48 99.1 F 102 H 16 103/58 11/26/22 08:00 99.4 F 73 18 97/58 98 11/26/22 03:17 98.1 F 83 22 98/65 97 11/25/22 19:59 97.8 F 107 H 18 115/68 97 Intake and Output 11/25/22 11/26/22 11/26/22 22:59 06:59 14:59 Intake Total 650 Output Total 0 Balance 650 Intake: IV 650 Output: Estimated Blood Loss 0 Other: Voiding Method Toilet Toilet # Voids 2 Weight 56.699 kg 56.699 kg GENERAL DESCRIPTION: Middle-aged female lying in bed, no distress. No tachypnea or accessory muscle of respiration use. HEENT: Shows Pallor , no scleral icterus. Oral mucous membrane is dry. No pharyngeal erythema or thrush NECK: Trachea central, no thyromegaly. LUNGS: Unlabored breathing. Clear to auscultation anteriorly. No wheeze or crackle. HEART: S1, S2, regular rate and rhythm. No loud murmur ABDOMEN: Soft, mild right flank tenderness ,no guarding or rigidity, no organome jian EXTREMITIES: No edema of feet. SKIN: No rash, no masses palpable. NEUROLOGICAL: The patient is awake, alert, oriented x3, mood and affect normal. Results CBC & Chem 7: 11/28/22 05:16 11/28/22 05:16 Labs: Abnormal Lab Results - Last 24 Hours (Table) 11/25/22 11/25/22 11/25/22 Range/Units 20:51 20:51 20:51 WBC 12.4 H (3.8-10.6) k/uL Neutrophils # 11.0 H (1.3-7.7) k/uL Lymphocytes # 0.9 L (1.0-4.8) k/uL Sodium 134 L (137-145) mmol/L Urine Appearance Turbid H (Clear) Urine Protein 2+ H (Negative) Urine Ketones 3+ H (Negative) Urine Blood Large H (Negative) Urine Nitrite Positive H (Negative) Ur Leukocyte Esterase Large H (Negative) Urine RBC 40 H (0-5) /hpf Urine WBC >182 H (0-5) /hpf Urine WBC Clumps Many H (None) /hpf Ur Squamous Epith Cells 8 H (0-4) /hpf Urine Bacteria Moderate H (None) /hpf Urine Mucus Few H (None) /hpf Urine Yeast (Budding) Moderate H (None) /hpf Microbiology - Last 24 Hours (Table) 11/25/22 20:51 Urine Culture - Preliminary Urine,Clean Catch Assessment and Plan (1) UTI (urinary tract infection) Status: Acute Code(s): N39.0 - URINARY TRACT INFECTION, SITE NOT SPECIFIED SNOMED Code(s): 69976470 Plan: 1patient is in the hospital with sepsis in this patient who did have fever and elevated white count source is complicated right-sided pyelonephritis in this patient with evidence of distal ureteral calculus requiring cystoscopy and ureteral stent placement we will need to cover for enteric gram-negative to be the likely pathogen patient did have significant discomfort with urination and will need symptomatic treatment. 2-Rocephin 2 g daily while waiting for the culture finalized and gentle IV fluid 3-we will add pyridium We will follow on clinical condition and cultures to further adjust medication if needed Thank you for this consultation will follow this patient with you Time with Patient: Greater than 30
[2022-11-26] MEDS: PHENAZOPYRIDINE 200 MG TAB PO SCH ×2 (17:07→20:54)
[2022-11-26] MEDS: OXYBUTYNIN XL 5 MG TAB.ER.24 PO SCH (20:54)
[2022-11-26] MEDS: KETOROLAC 15 MG/ML 1 ML VIAL IVP SCH (20:56)
[2022-11-26] MEDS: QUEtiapine 25 MG TAB PO SCH (20:56)
[2022-11-26] MEDS: SODIUM CHLORIDE 0.9% 1,000 ML IV SCH (23:09)
[2022-11-27] MEDS: ACETAMINOPHEN TAB 325 MG TAB PO PRN (02:58)
[2022-11-27] MEDS: KETOROLAC 15 MG/ML 1 ML VIAL IVP SCH ×4 (02:59→20:42)
[2022-11-27] MEDS: SODIUM CHLORIDE 0.9% 1,000 ML IV SCH ×2 (03:12→16:28)
[2022-11-27] MEDS: PHENAZOPYRIDINE 200 MG TAB PO SCH ×3 (09:45→20:42)
[2022-11-27] MEDS: OXYBUTYNIN XL 5 MG TAB.ER.24 PO SCH (09:45)
[2022-11-27] MEDS: QUEtiapine 25 MG TAB PO SCH ×2 (09:45→20:43)
[2022-11-27] MEDS: HYDROmorphone 1 MG/ML 1 ML SYRINGE IVP PRN ×5 (09:47→23:29)
--- NOTE | 2022-11-27 11:59 | P.PN ---
Subjective Progress Note Date: 11/27/22 Underwent right stent insertion yesterday, flank pain has improved but is having bladder spasms secondary to the stent. Urine cultures pending Objective - Vital Signs Vital signs: Vital Signs Temp 98.0 F 11/27/22 07:15 Pulse 62 11/27/22 09:54 Resp 18 11/27/22 09:54 BP 90/54 11/27/22 07:15 Pulse Ox 99 11/27/22 07:15 FiO2 Intake & Output 11/26/22 11/27/22 11/27/22 18:59 06:59 18:59 Intake Total 1400 Output Total 0 Balance 1400 Intake: IV 650 Intake, IV Titration 750 Amount Sodium Chloride 0.9% 1, 750 000 ml @ 75 mls/hr IV . [id number] Rx#:[id number] Output: Estimated Blood Loss 0 Other: Voiding Method Toilet Toilet Toilet # Voids 5 - Constitutional General appearance: Present: no acute distress - Gastrointestinal General gastrointestinal: Present: soft. Absent: distended, tenderness - Labs CBC & Chem 7: 11/25/22 20:51 11/25/22 20:51 Labs: Microbiology - Last 24 Hours (Table) 11/25/22 23:55 Blood Culture - Preliminary Blood No Growth after 24 hours 11/25/22 23:50 Blood Culture - Preliminary Blood No Growth after 24 hours 11/25/22 20:51 Urine Culture - Preliminary Urine,Clean Catch Assessment and Plan Assessment: 32-year-old female presents to the hospital with a 6 mm right-sided obstructing stone, and a UTI. Underwent right stent insertion yesterday, having bladder spasm secondary to her stent. Urine and blood cultures are pending -Continue IV antibiotics -Follow up on urine culture -Continue Ditopan, Pyridium and toradol for bladder spasms -Can discharge home once cultures finalized -We'll arrange for outpatient right ureteroscopy with holmium laser
[2022-11-27 20:50] VITALS: RESP 17
[2022-11-27] MEDS ORDERED: tiZANidine 4 MG TAB PO SCH (21:00)
--- NOTE | 2022-11-27 22:44 | P.PN ---
Subjective Progress Note Date: 11/27/22 Principal diagnosis: Right-sided pyelonephritis Patient is a 32-year-old female presenting to the ER last night complaining of right-sided abdominal pain, patient did have CT of abdominal pelvis suspicious for distal ureteral calculus patient is status post cystoscopy and ureteral stent placement. On today's evaluation that is 11/27/2022, the patient denies having any fever or rigors, the patient right-sided abdominal pain has slightly decreased in intensity, no nausea no vomiting or chest pain or shortness of breath or cough Objective - Vital Signs Vital signs: Vital Signs Temp 98.0 F 11/27/22 07:15 Pulse 62 11/27/22 09:54 Resp 18 11/27/22 09:54 BP 90/54 11/27/22 07:15 Pulse Ox 99 11/27/22 07:15 FiO2 Intake & Output 11/26/22 11/27/22 11/27/22 18:59 06:59 18:59 Intake Total 1400 Output Total 0 Balance 1400 Intake: IV 650 Intake, IV Titration 750 Amount Sodium Chloride 0.9% 1, 750 000 ml @ 75 mls/hr IV . [id number] [facility] Rx#:[id number] Output: Estimated Blood Loss 0 Other: Voiding Method Toilet Toilet Toilet # Voids 5 - Exam GENERAL DESCRIPTION: Middle-aged female lying in bed in no distress RESPIRATORY SYSTEM: Unlabored breathing , decreased breath sounds at bases HEART: S1 S2 regular rate and rhythm , ABDOMEN: Soft , no tenderness EXTREMITIES: No edema feet - Labs CBC & Chem 7: 11/25/22 20:51 11/25/22 20:51 Labs: Microbiology - Last 24 Hours (Table) 11/25/22 23:55 Blood Culture - Preliminary Blood No Growth after 24 hours 11/25/22 23:50 Blood Culture - Preliminary Blood No Growth after 24 hours 11/25/22 20:51 Urine Culture - Preliminary Urine,Clean Catch Assessment and Plan (1) UTI (urinary tract infection) Current Visit: Yes Status: Acute Code(s): N39.0 - URINARY TRACT INFECTION, SITE NOT SPECIFIED SNOMED Code(s): 60824985 Plan: 1patient is in the hospital with sepsis in this patient who did have fever and elevated white count source is complicated right-sided pyelonephritis in this patient with evidence of distal ureteral calculus requiring cystoscopy and ureteral stent placement we will need to cover for enteric gram-negative to be the likely pathogen 2-patient to continue with Rocephin 2 g daily while waiting for the culture finalized and monitor clinical course closely Time with Patient: Less than 30
--- NOTE | 2022-11-28 02:46 | HP ---
HISTORY AND PHYSICAL HISTORY OF PRESENT ILLNESS: This is a 32-year-old white female who came to the emergency room with 48-hour nausea and vomiting, found to have ureter stone and stent placed due to significant possible hydronephrosis. Started on broad-spectrum IV antibiotics. Home medicines include folic acid, ibuprofen. ALLERGIES: Lamictal . REVIEW OF SYSTEMS: A 14-point review of systems is otherwise negative. PAST MEDICAL HISTORY: PCOS, ADHD, bipolar 2. PAST SURGICAL HISTORY: Tubes in ears. FAMILY HISTORY: Mother had cancer of the lung. Brother has myocardial infarction. PHYSICAL EXAMINATION: VITAL SIGNS: Temperature 97.8, pulse 107, respiratory rate 16 to 18, blood pressure is 115/58, O2 is 97%. HEENT: Normocephalic, atraumatic. Pupils are equal, round, and reactive. ABDOMEN: Soft, area. NEUROLOGIC: Cranial nerves are intact. PSYCHIATRIC: Fair mood and affect. HEART: S1, S2. LUNGS: Clear. ASSESSMENT AND PLAN: Urinary tract infection with hydronephrosis, dehydration, leukocytosis secondary to above. Continue current treatments. Treated with antibiotics, pain control. Urology and Infectious Disease consult. MMODL / IJN: [id number] /
[2022-11-28] MEDS: KETOROLAC 15 MG/ML 1 ML VIAL IVP SCH ×2 (03:13→09:07)
[2022-11-28] MEDS: HYDROmorphone 1 MG/ML 1 ML SYRINGE IVP PRN ×3 (03:14→11:13)
[2022-11-28] MEDS: SODIUM CHLORIDE 0.9% 1,000 ML IV SCH (05:19)
[2022-11-28 08:58] LABS: African American GFR (CKD) 138.8 (60.0-200.0); Anion Gap 6.8 mmol/L (10.00-18.00); BUN/Creat Ratio 20.67 Ratio (12.00-20.00); Blood Urea Nitrogen 12.4 mg/dL (9.0-27.0); C Reactive Protein 5.3 mg/dL (0.00-0.80); Calcium 8.2 mg/dL (8.7-10.3); Carbon Dioxide 26.2 mmol/L (20.0-27.5); Non-African American GFR(CKD) 119.8 (60.0-200.0); Potassium 5.7 mmol/L (3.5-5.5)
[2022-11-28] MEDS: QUEtiapine 25 MG TAB PO SCH (09:08)
[2022-11-28] MEDS: PHENAZOPYRIDINE 200 MG TAB PO SCH (09:08)
[2022-11-28] MEDS: OXYBUTYNIN XL 5 MG TAB.ER.24 PO SCH (09:08)
[2022-11-28 09:33] VITALS: BP 108/60; PULSE 72; TEMP 98.1
--- NOTE | 2022-11-28 10:25 | P.PN ---
Progress Note - Text Progress Note Date: 11/28/22 Patient is afebrile. She reports mild discomfort with movement and straining to have a bowel movement. This may be the result of her stent. The urine culture has shown E. coli, sensitive to most oral antibiotics. She may be discharged home on oral antibiotics. I would suggest oxybutynin chloride also be prescribed to minimize her stent discomfort. Dr. Varner is making arrangements for her to undergo ureteroscopic removal of her calculus. Please notify me if we can be of any further assistance.
[2022-11-28] MEDS ORDERED: DOCUSATE 100 MG CAP PO SCH (10:30)
[2022-11-28 11:09] LABS: Basophils # (A) 0.02 X 10*3/uL (0.00-0.10); Basophils % (A) 0.3 %; Eosinophils # (A) 0.27 X 10*3/uL (0.04-0.35); Eosinophils % (A) 3.9 %; HCT 34.3 % (37.2-46.3); HGB 10.4 g/dL (12.0-15.0); Immature Grans, Automated 0.4 %; Lymphocytes # (A) 1.63 X 10*3/uL (0.90-5.00); Lymphocytes % (A) 23.5 %; MCH 29.5 pg (27.0-32.0); MCHC 30.3 g/dL (32.0-37.0); MCV 97.2 fL (80.0-97.0); Mean Platelet Volume 9.8 fL (9.5-12.2); Monocytes # (A) 0.53 X 10*3/uL (0.20-1.00); Monocytes % (A) 7.6 %; NRBC Per 100 WBC 0 /100 WBCS (0.0-0.0); Neutrophils # (A) 4.45 X 10*3/uL (1.80-7.70); Neutrophils % (A) 64.3 %; Platelet Count 273 X 10*3/uL (140-440); RBC 3.53 X 10*6/uL (4.10-5.20); RDW 13.9 % (11.5-14.5); WBC 6.93 X 10*3/uL (4.50-10.00)
[2022-11-28] MEDS: ONDANSETRON 4 MG/2 ML VIAL IVP PRN (11:13)
--- NOTE | 2022-11-28 14:34 | CDI ---
Documentation Clarification Form Date: 11/28/2022 2:24:38 PM From: Rubi Palacios CCS, CCDS Admit Date: 11/26/2022 12:18:00 AM Patient Name: Luzma Sifuentes Visit Number: [id number] Discharge Date: 11/28/2022 2:21:00 PM ATTENTION: The Clinical Documentation Specialists (CDI) and [facility] Coding Staff appreciate your assistance in clarifying documentation. Please respond to the clarification below the line at the bottom and electronically sign. The CDI & [facility] Coding staff will review the response and follow-up if needed. Please note: Queries are made part of the Legal Health Record. If you have any questions, please contact the author of this message via ITS. Dr. Carmelo Watkins: The patient presented with the following clinical indicators. Additional clarification regarding the etiology/cause of the clinical indicators is requested. History/Risk Factors per the 11/27 H/P: Polycystic Ovary Syndrome, ADHD, Bipolar II, Smoker. Clinical Indicators: Presented to the ED with Abdominal and Back Pain, Nausea and Vomiting, Fever. Admit with Urinary calculi, UTI, Yeast UTI 11/25 VS: T 97.8, P 107, R 18 - 22, BP 115/68, PO 97 RA, BMI: 20.8 11/30 LAB: WBC 12.4, Neutrophils 11.0, Lymphocytes 0.9; Na 134, Lactic Acid 0.8 11/25 UA: Turbid, 2+ Protein, 3+ Ketones, Large Blood, Positive Nitrite, Large Esterase, RBC 40, WBC >182. 11/25 Urine Culture (Final): E Coli 11/25 Blood cultures x2 (Preliminary): No growth after 48 hrs. 11/25 CT Abdomen/Pelvis: Possible obstruction right upper collecting system, possible distal right ureteral calculus. Treatment 11/25: Urology Consulted, Blood cultures x1, IV Zofran 4 mg x1, IV Morphine 4 mg x1, IV Na Chl 1,000 mls @ 999 mls/hr q1H, IV Toradol 15 mg x1, IV Rocephin 1,000 mg x1, IV Dilaudid 1 mg q3H/prn. 11/26 Right ureteral stent placement. In your professional opinion, please clarify if these findings signify one of the following conditions: [ ] Sepsis POA [ ] Sepsis, Not POA [ ] Sepsis ruled out [ ] Other, please specify: [ ] Unable to determine (Template Last Reviewed: December 2020) MTDD
--- NOTE | 2022-11-28 19:46 | P.PN ---
Subjective Progress Note Date: 11/28/22 Principal diagnosis: Right-sided pyelonephritis Patient is a 32-year-old female presenting to the ER last night complaining of right-sided abdominal pain, patient did have CT of abdominal pelvis suspicious for distal ureteral calculus patient is status post cystoscopy and ureteral stent placement. On today's evaluation that is 11/28/2022, the patient remains to be afebrile, the patient right-sided abdominal pain has decreased in intensity, the patient denies nausea no vomiting or chest pain or shortness of breath or cough Objective - Vital Signs Vital signs: Vital Signs Temp 98.1 F 11/28/22 08:00 Pulse 72 11/28/22 08:00 Resp 17 11/28/22 08:00 BP 108/60 11/28/22 08:00 Pulse Ox 97 11/28/22 08:00 FiO2 Intake & Output 11/27/22 11/28/22 11/28/22 18:59 06:59 18:59 Intake Total 720 240 Balance 720 240 Intake: Oral 720 240 Other: Voiding Method Toilet Toilet Toilet # Voids 1 4 - Exam GENERAL DESCRIPTION: Middle-aged female lying in bed in no distress RESPIRATORY SYSTEM: Unlabored breathing , decreased breath sounds at bases HEART: S1 S2 regular rate and rhythm , ABDOMEN: Soft , no tenderness EXTREMITIES: No edema feet - Labs CBC & Chem 7: 11/28/22 05:16 11/28/22 05:16 Labs: Abnormal Lab Results - Last 24 Hours (Table) 11/28/22 Range/Units 05:16 Potassium 5.7 H (3.5-5.5) mmol/L Anion Gap 6.80 L (10.00-18.00) mmol/L BUN/Creatinine Ratio 20.67 H (12.00-20.00) Ratio Calcium 8.2 L (8.7-10.3) mg/dL C-Reactive Protein 5.30 H (0.00-0.80) mg/dL Microbiology - Last 24 Hours (Table) 11/25/22 20:51 Urine Culture - Final Urine,Clean Catch Escherichia coli 11/25/22 23:55 Blood Culture - Preliminary Blood No Growth after 48 hours 11/25/22 23:50 Blood Culture - Preliminary Blood No Growth after 48 hours Assessment and Plan (1) UTI (urinary tract infection) Status: Acute Code(s): N39.0 - URINARY TRACT INFECTION, SITE NOT SPECIFIED S NOMED Code(s): 12389494 Plan: 1patient is in the hospital with sepsis in this patient who did have fever and elevated white count source is complicated right-sided pyelonephritis in this patient with evidence of distal ureteral calculus requiring cystoscopy and ureteral stent placement we will need to cover for enteric gram-negative to be the likely pathogen 2-patient urine culture has been be finalized with an E. coli blood culture has been negative, patient was clinical improvement with Rocephin 2 g daily with a plan to finish therapy with oral Ceftin prescription sent to pharmacy Time with Patient: Less than 30
[2022-11-28] MEDS ORDERED: NITROFURANTOIN MONOHYD/M-CRYST 100 MG CAP PO SCH (21:00)
--- NOTE | 2022-11-29 01:13 | PN ---
PROGRESS NOTE Sepsis, ruled in. MMODL / IJN: [id number] /
== END 2022-11-28 14:21 | disposition home or self-care (01) | DRG 854 ==
LOC: EC 19:46 → 4SSUR 11-26 00:18 → 6NMEDSUR 11-27 10:09
PROVIDERS: ADMIT Family Medicine; ATTEND Family Medicine
PROC: 0T768DZ Dilation of Right Ureter with Intraluminal Device, Via Natural or Artificial Opening Endoscopic (ICD-10-PCS; principal; 2022-11-26 12:00)
DX: A41.51 Sepsis due to Escherichia coli [E. coli] (principal); F31.81 Bipolar II disorder; N13.6 Pyonephrosis; T83.89XA Other specified complication of genitourinary prosthetic devices, implants and grafts, initial encounter; Z20.822 Contact with and (suspected) exposure to COVID-19; E86.0 Dehydration; F17.290 Nicotine dependence, other tobacco product, uncomplicated; E28.2 Polycystic ovarian syndrome; F90.9 Attention-deficit hyperactivity disorder, unspecified type; N32.89 Other specified disorders of bladder; Y83.1 Surgical operation with implant of artificial internal device as the cause of abnormal reaction of the patient, or of later complication, without mention of misadventure at the time of the procedure; Z84.1 Family history of disorders of kidney and ureter
CPT/HCPCS: 36415; 74176; 80048; 80053; 81001; 81025; 82150; 83605; 83690; 85025; 86140; 87040; 87077; 87086; 87186; 87636; 96361; 96374; 96375; 99285

== ENCOUNTER 2023-08-23 20:00 | Emergency (ER) | payer BC ==
--- NOTE | 2023-08-23 20:39 | ED ---
Chest Pain HPI - General Source: RN notes reviewed <Taryn Sibley - Last Filed: 08/23/23 20:39> - General Source: patient, RN notes reviewed <Jonny Herman - Last Filed: 08/23/23 22:12> - General Stated Complaint: SOB,Cough Time Seen by Provider: 08/23/23 20:38 - History of Present Illness Initial Comments: Patient is a 33 year old who presents to the emergency department for cough and shortness of breath. Patient recently treated for upper respiratory infection by Dr. Watkins. (Taryn Sibley) Patient is a 33-year-old female who presents emergency Department complaining of coughing, upper respiratory infection for the last 2-3 days. Child dose of azithromycin last week without much improvement. List was given prednisone but entranceway covered. Once for further evaluation at this time. Denies any new symptoms chest chest discomfort when coughing which is generalized. Patient or iginally seen was a quick note. Has no cardiac history. Was a prior smoker. Denies nausea, vomiting, abdominal pain. Presents for further evaluation at this time. Has been using her home albuterol inhaler at home as needed. (Jonny Herman) - Related Data Home Medications Medication Instructions Recorded Confirmed Dextroamphetamine/Amphetamine 30 mg PO BID 11/26/22 12/27/22 [Adderall] QUEtiapine XR [SEROquel XR] 50 mg PO HS 11/26/22 12/27/22 traMADol HCL 50 mg PO Q6HR PRN 12/27/22 12/27/22 Previous Rx's Medication Instructions Recorded Cephalexin [Keflex] 500 mg PO Q8HR #15 cap 12/27/22 Ketorolac [Toradol] 10 mg PO Q6HR PRN #15 tab 12/27/22 Doxycycline Hyclate 100 mg PO BID 7 Days #14 tab 08/23/23 predniSONE [Deltasone] 40 mg PO DAILY 5 Days #10 tab 08/23/23 Allergies Allergy/AdvReac Type Severity Reaction Status Date / Time lamotrigine [From Lamictal] Allergy Severe Rash/Hives Verified 08/23/23 20:51 Review of Systems ROS Other: All systems not noted in ROS Statement are negative. <Taryn Sibley - Last Filed: 08/23/23 20:39> ROS Other: All systems not noted in ROS Statement are negative. <Jonny Herman - Last Filed: 08/23/23 22:12> ROS Statement: Those systems with pertinent positive or pertinent negative responses have been documented in the HPI. Review of Systems: CONST: Denies fever EYES: Denies blurry vision ENT: Denies nasal congestion C/V: Denies Chest pain RESP: Endorses cough GI: Denies abdominal pain : Denies dysuria SKIN: Denies rash. MSK: Denies joint pain. NEURO: Denies headache (Jonny Herman) EKG Findings - EKG Comments: EKG Findings:: 12-lead Electrocardiogram Interpretation Note. EKG was reviewed and interpreted by myself. 12-lead ECG performed at 2049 is interpreted by me as revealing normal sinus rhythm at a rate of 83 beats per minute. Loraine is normal. PA interval is 139 ms, QRS duration is 90 ms, QTc is 372 ms.. There were no ST or T wave abnormalities to suggest myocardial ischemia or injury. R wave progression across the precordium was satisfactory. By my interpretation this EKG is non-diagnostic for acute ischemia. - EKG Results: EKG: interpreted by ERMD <Jonny Herman - Last Filed: 08/23/23 22:12> Past Medical History Past Medical History: No Reported History Additional Past Medical History / Comment(s): PCOS. History of Any Multi-Drug Resistant Organisms: None Reported Past Surgical History: Ear Surgery Additional Past Surgical History / Comment(s): tubes in ears as a child, left tube removed. Past Anesthesia/Blood Transfusion Reactions: Postoperative Nausea & Vomiting (PONV) Smoking Status: Vaper - Past Family History Mother Family Medical History: Cancer Additional Family Medical History / Comment(s): stage 3 lung ca, brain aneursym Father History Unknown: Yes Family Medical History: Myocardial Infarction (MT) <Taryn Sibley - Last Filed: 08/23/23 20:39> General Exam <Taryn Sibley - Last Filed: 08/23/23 20:39> <Jonny Herman - Last Filed: 08/23/23 22:12> - General Exam Comments Initial Comments: Visual Physical Exam Vital signs reviewed General: Well-appearing, nontoxic, no acute distress. Head: Normocephalic, atraumatic Eyes: PERRLA, EOMI ENT: Airway patent Chest: Nonlabored breathing Skin: No visual rash, normal skin tone Neuro: Alert and oriented 3 Musculoskeletal: No gross abnormalities (Taryn Sibley) General: Appears in no acute distress. HEAD: Normal with no signs of head trauma. EYES: PERRLA, EOMI, conjunctiva normal, no discharge. ENT: Hearing grossly intact, normal oropharynx. RESPIRATORY: Clear breath sounds bilaterally. No hypoxia. No increased work of breathing. Patient does have some central mild wheezing. C/V: Regular rate and rhythm. S1 and S2 auscultated, no edema, peripheral pulses 2+ and intact throughout ABD: Abd is soft, nontender, nondistended EXT: Normal range of motion, no obvious deformity SKIN: No rashes or lesions observed on exposed skin. NEURO: Alert and oriented 4. (Jonny Herman) Course Vital Signs 08/23/23 20:43 Temperature 97.8 F Pulse Rate 88 Respiratory 18 Rate Blood Pressure 122/72 O2 Sat by Pulse 98 Oximetry Chest Pain MDM <Taryn Sibley - Last Filed: 08/23/23 20:39> <Jonny Herman - Last Filed: 08/23/23 22:12> - MDM I performed the QuickNote portion of this chart - Taryn Sibley PA-C (Taryn Sibley) Was pt. sent in by a medical professional or institution ([facility], [facility], urgent care, hospital, or shelter...) When possible be specific @ -No Did you speak to anyone other than the patient for history (EMS, parent, family, police, friend...)? What history was obtained from this source @ -No Did you review nursing and triage notes (agree or disagree)? Why? @ -I reviewed and agree with nursing and triage notes Were old charts reviewed (outside hosp., previous admission, EMS record, old EKG, old radiological studies, urgent care reports/EKG's, shelter records)? Report findings @ -No old charts were reviewed Differential Diagnosis (chest pain, altered mental status, abdominal pain women, abdominal pain men, vaginal bleeding, weakness, fever, dyspnea, syncope, headache, dizziness, GI bleed, back pain, seizure, CVA, palpatations, mental health, musculoskeletal)? @ -URI, bronchitis, pneumonia, Covid 19 infection, influenza infection, this list is not all-inclusive. EKG interpreted by me (3pts min.). @ -As above X-rays interpreted by me (1pt min.). @ -Chest x-ray reveals no obvious acute cardiopulmonary process. CT interpreted by me (1pt min.). @ -None done U/S interpreted by me (1pt. min.). @ -None done What testing was considered but not performed or refused? (CT, X-rays, U/S, labs)? Why? @ -None What meds were considered but not given or refused? Why? @ -None Did you discuss the management of the patient with other professionals (professionals i.e. , PA, [facility], lab, RT, psych nurse, social insurance analyst, surface lay out technician, teacher, highway patrol officer, geriatric case manager)? Give summary @ -No Was smoking cessation discussed for >3mins.? @ -No Was critical care preformed (if so, how long)? @ -No Were there social determinants of health that impacted care today? How? (Homelessness, low income, unemployed, alcoholism, drug addiction, transportation, low edu. Level, literacy, decrease access to med. care, halfway, rehab)? @ -No Was there de-escalation of care discussed even if they declined (Discuss DNR or withdrawal of care, Hospice)? DNR status @ -No What co-morbidities impacted this encounter? (DM, HTN, Smoking, COPD, CAD, Cancer, CVA, ARF, Chemo, Hep., AIDS, mental health diagnosis, sleep apnea, morbid obesity)? @ -None Was patient admitted / discharged? Hospital course, mention meds given and route, prescriptions, significant lab abnormalities, going to OR and other pertinent info. @ -I evaluated the patient and she was placed in [facility]. Presents with URI symptoms for the last 2-3 weeks. Appears to be bronchitis. Chest x-ray which is already obtained reveals no obvious pneumonia. Viral swabs are negative. Vital signs within acceptable limits. I discussed results with the patient. Screening EKG was also obtained which was unremarkable. Discussed is likely tracheobronchitis, and we will administer prednisone and give her prescription in addition to albuterol inhaler which showed his home. Discussed antibiotics, and we will attempt treatment with doxycycline as it has been 3 weeks. She was in agreement with this plan. Strict return precautions discussed. I will provide the patient with a prescription for prednisone, doxycycline. I instructed the patient to follow up with their PCP in the next 1-3 days. I explained that the patient should return to the emergency department if they experience any worsening symptoms. Strict return precautions were discussed with the patient. The patient expressed understanding of these instructions. I answered all questions that the patient had. The patient was discharged home in good condition with their prescriptions and follow up information. Undiagnosed new problem with uncertain prognosis? @ -No Drug Therapy requiring intensive monitoring for toxicity (Heparin, Nitro, Insulin, Cardizem)? @ -No Were any procedures done? @ -No Diagnosis/symptom? @ -Tracheobronchitis, URI Acute, or Chronic, or Acute on Chronic? @ -Acute Uncomplicated (without systemic symptoms) or Complicated (systemic symptoms)? @ -Complicated Side effects of treatment? @ -No Exacerbation, Progression, or Severe Exacerbation? @ -No Poses a threat to life or bodily function? How? (Chest pain, [place], [place], pneumonia, PE, COPD, DKA, ARF, appy, cholecystitis, CVA, Diverticulitis, Homicidal, Suicidal, threat to staff... and all critical care pts) @ -No (Jonny Herman) Disposition <Taryn Sibley - Last Filed: 08/23/23 20:39> Is patient prescribed a controlled substance at d/c from ED?: No Time of Disposition: 22:00 <Jonny Herman - Last Filed: 08/23/23 22:12> Clinical Impression: Tracheobronchitis Disposition: HOME SELF-CARE Condition: Good Instructions (If sedation given, give patient instructions): Upper Respiratory Infection (ED), Acute Bronchitis (ED) Prescriptions: predniSONE [Deltasone] 40 mg PO DAILY 5 Days #10 tab Doxycycline Hyclate 100 mg PO BID 7 Days #14 tab Referrals: Carmelo Watkins MD [Primary Care Provider] - 1-2 days
[2023-08-23 20:58] VITALS: BP 122/72; PULSE 88; RESP 18; TEMP 97.8
--- NOTE | 2023-08-23 21:31 | XR ---
EXAMINATION TYPE: XR chest 2V DATE OF EXAM: 08/23/2023 9:04 PM CLINICAL INDICATION:Female, 33 years old with history of cough, shortness of breath; [facility] COMPARISON: Chest radiographs from 12/03/2019 TECHNIQUE: XR chest 2V Frontal and lateral views of the chest. FINDINGS: Lungs/Pleura: There is no evidence of pleural effusion, focal consolidation, or pneumothorax. Pulmonary vascularity: Unremarkable. Heart/mediastinum: Cardiomediastinal silhouette is unremarkable. Musculoskeletal: No acute osseous pathology. IMPRESSION: No acute cardiopulmonary disease/process.
[2023-08-23] MEDS ORDERED: DOXYCYCLINE 100 MG CAP PO STA (21:59)
[2023-08-23] MEDS ORDERED: predniSONE 20 MG TAB PO STA (21:59)
== END 2023-08-24 01:58 | disposition home or self-care (01) ==
LOC: EC 20:00
DX: J40 Bronchitis, not specified as acute or chronic (principal); F17.290 Nicotine dependence, other tobacco product, uncomplicated; Z88.8 Allergy status to other drugs, medicaments and biological substances; Z20.822 Contact with and (suspected) exposure to COVID-19
CPT/HCPCS: 93005; 87636; 71046; 99285; J7512

== ENCOUNTER 2024-09-07 17:26 | Emergency (ER) | payer BC ==
[2024-09-07 17:37] VITALS: TEMP 98.6
--- NOTE | 2024-09-07 18:18 | ED ---
Nausea/Vomiting/Diarrhea HPI - General Chief complaint: Nausea/Vomiting/Diarrhea Stated complaint: Vomiting Time Seen by Provider: 09/07/24 17:42 Source: patient Limitations: no limitations - History of Present Illness Initial comments: This is a 34-year-old female presenting with sudden onset nausea, vomiting and diarrhea x 14 hours. Patient also endorses associated fever, abdominal pain, decreased appetite, headache and right lower back pain (8 out of 10). Patient endorses lightheadedness, especially with position change. Patient denies recent sick contacts or abnormal food intake. Patient endorses use of Tylenol and Excedrin with resolution of fever but other symptoms persist. Patient states she still has her appendix. Patient denies chills, chest pain, dyspnea, urinary symptoms, hematemesis, hematochezia. MD complaint: nausea, vomiting, diarrhea, abdominal pain Onset/Timin -: hour(s) Associated Abdominal Pain: Yes Location: diffuse, RLQ Radiation: other (Right lower back) Severity scale (1-10): 8 Consistency: constant Improves with: other (Lying on left side knees pulled towards chest) Associated Symptoms: fever/chills, headaches, loss of appetite (Diarrhea), nausea/vomiting, other - Related Data Home Medications Medication Instructions Recorded Confirmed Dextroamphetamine/Amphetamine 30 mg PO BID 11/26/22 09/07/24 [Adderall] Budesonide/Formoterol Fumarate 2 puff PO RT-BID PRN 09/07/24 09/07/24 [Budesonide-Formoterol 160-4.5] Previous Rx's Medication Instructions Recorded Ibuprofen [Motrin] 600 mg PO Q8HR PRN #30 tab 09/07/24 Ondansetron [Zofran] 4 mg PO Q8HR PRN #15 tab 09/07/24 Allergies Allergy/AdvReac Type Severity Reaction Status Date / Time lamotrigine [From Lamictal] Allergy Severe Rash/Hives Verified 09/07/24 17:51 Review of Systems ROS Statement: Those systems with pertinent positive or pertinent negative responses have been documented in the HPI. ROS Other: All systems not noted in ROS Statement are negative. Past Medical History Past Medical History: No Reported History Additional Past Medical History / Comment(s): PCOS. History of Any Multi-Drug Resistant Organisms: None Reported Past Surgical History: Ear Surgery Additional Past Surgical History / Comment(s): tubes in ears as a child, left tube removed. ectopic sx-removed left fallopian tube Past Anesthesia/Blood Transfusion Reactions: Postoperative Nausea & Vomiting (PONV) Past Psychological History: ADD/ADHD Smoking Status: Former smoker, Vaper Past Alcohol Use History: None Reported Past Drug Use History: None Reported - Past Family History Mother Family Medical History: Cancer Additional Family Medical History / Comment(s): stage 3 lung ca, brain aneursym Father History Unknown: Yes Family Medical History: Myocardial Infarction ([place]) General Exam Limitations: no limitations General appearance: alert, in no apparent distress Head exam: Present: atraumatic, normocephalic, normal inspection Eye exam: Present: normal appearance, PERRL, EOMI. Absent: scleral icterus, conjunctival injection, periorbital swelling ENT exam: Present: normal exam, mucous membranes moist Neck exam: Present: normal inspection. Absent: tenderness, meningismus, lymphadenopathy Respiratory exam: Present: normal lung sounds bilaterally. Absent: respiratory distress, wheezes, rales, rhonchi, stridor Cardiovascular Exam: Present: regular rate, normal rhythm, normal heart sounds. Absent: systolic murmur, diastolic murmur, rubs, gallop, clicks GI/Abdominal exam: Present: soft, tenderness (Positive diffuse tenderness, especially right lower quadrant and epigastric region. Positive McBurney's point. Negative Dixon sign. Negative rebound tenderness.), hyperactive bowel sounds. Absent: distended, guarding, rebound, rigid Extremities exam: Present: normal inspection, full ROM, normal capillary refill. Absent: tenderness, pedal edema, joint swelling, calf tenderness Back exam: Present: normal inspection Neurological exam: Present: alert, oriented X3, CN II-XII intact Psychiatric exam: Present: normal affect, normal mood Skin exam: Present: warm, dry, intact, normal color. Absent: rash Course Vital Signs 09/07/24 09/07/24 17:35 18:52 Temperature 98.6 F Pulse Rate 107 H 100 Respiratory 22 18 Rate Blood Pressure 111/65 O2 Sat by Pulse 97 98 Oximetry Medical Decision Making - Medical Decision Making Was pt. sent in by a medical professional or institution (, PA, DIRECTOR OF SLEEP, urgent care, hospital, or [facility]...) When possible be specific @ -No Did you speak to anyone other than the patient for history (EMS, parent, family, police, friend...)? What history was obtained from this source @ -No Did you review nursing and triage notes (agree or disagree)? Why? @ -I reviewed and agree with nursing and triage notes Were old charts reviewed (outside hosp., previous admission, EMS record, old EKG, old radiological studies, urgent care reports/EKG's, [facility] records)? Report findings @ -No old charts were reviewed Differential Diagnosis (chest pain, altered mental status, abdominal pain women, abdominal pain men, vaginal bleeding, weakness, fever, dyspnea, syncope, headache, dizziness, GI bleed, back pain, seizure, CVA, palpatations, mental health, musculoskeletal)? @ -Differential Abdominal Pain Women: Appendicitis, Cholecystitis, diverticulosis, ischemic bowel, pancreatitis, hepatitis, UTI, gastroenteritis, AAA, incarcerated hernia, bowel obstruction, constipation, inflammatory bowel, hepatitis, peptic ulcer disease, splenic infarction, perforated viscus, vulvitis, ovarian torsion, PID, kidney stone, placenta abruption, this is not meant to be an all-inclusive list EKG interpreted by me (3pts min.). @ -Not done X-rays interpreted by me (1pt min.). @ -None done CT interpreted by me (1pt min.). @ -Abdominal CT with contrast U/S interpreted by me (1pt. min.). @ -Right lower quadrant ultrasound unable to visualize appendix What testing was considered but not performed or refused? (CT, X-rays, U/S, labs)? Why? @ -Right side anterior. With no indication of acute appendicitis. What meds were considered but not given or refused? Why? @ -None Did you discuss the management of the patient with other professionals (professionals i.e. , PA, DIRECTOR OF SLEEP, lab, RT, psych nurse, social service agency director, metalworker, teacher, resident medical officer, patient case manager)? Give summary @ -No Was smoking cessation discussed for >3mins.? @ -No Was critical care preformed (if so, how long)? @ -No Were there social determinants of health that impacted care today? How? (Homelessness, low income, unemployed, alcoholism, drug addiction, transportation, low edu. Level, literacy, decrease access to med. care, senior living, rehab)? @ -No Was there de-escalation of care discussed even if they declined (Discuss DNR or withdrawal of care, Hospice)? DNR status @ -No What co-morbidities impacted this encounter? (DM, HTN, Smoking, COPD, CAD, Cancer, CVA, ARF, Chemo, Hep., AIDS, mental health diagnosis, sleep apnea, morbid obesity)? @ -None Was patient admitted / discharged? Hospital course, mention meds given and route, prescriptions, significant lab abnormalities, going to OR and other pertinent info. @ -Discharge. Right lower quadrant ultrasound could not locate appendix. Lab work revealed elevated white blood cell count and negative urine hCG. Patient given Toradol and Dilaudid IV. Abdominal CT revealed normal appendix and right side enterocolitis. Patient given IV fluids and additional Dilaudid and Toradol. Patient notes improvement in symptoms with pain at 4 out of 10, stating she is feeling much better. Patient sent home with T3 and Zofran starter pack. Zofran and Motrin p.o. sent to pharmacy. Advised return to ER if experiencing fever and/or worsening abdominal pain. Undiagnosed new problem with uncertain prognosis? @ -No Drug Therapy requiring intensive monitoring for toxicity (Heparin, Nitro, Insulin, Cardizem)? @ -No Were any procedures done? @ -No Diagnosis/symptom? @ -Acute enterocolitis Acute, or Chronic, or Acute on Chronic? @ -Acute Uncomplicated (without systemic symptoms) or Complicated (systemic symptoms)? @ -Complicated Side effects of treatment? @ -No Exacerbation, Progression, or Severe Exacerbation? @ -No Poses a threat to life or bodily function? How? (Chest pain, [place], [place], pneumonia, PE, COPD, DKA, ARF, appy, cholecystitis, CVA, Diverticulitis, Homicidal, Suicidal, threat to staff... and all critical care pts) @ -No - Lab Data Result diagrams: 09/07/24 18:30 09/07/24 18:30 Lab Results 09/07/24 09/07/24 09/07/24 Range/Units 18:30 18:30 18:56 WBC 11.0 H (3.8-10.6) k/uL RBC 4.85 (3.80-5.40) m/uL Hgb 14.6 (11.4-16.0) gm/dL Hct 44.4 (34.0-46.0) % MCV 91.6 (80.0-100.0) fL MCH 30.2 (25.0-35.0) pg MCHC 32.9 (31.0-37.0) g/dL RDW 12.8 (11.5-15.5) % Plt Count 253 (150-450) k/uL MPV 6.6 Neutrophils % 90 % Lymphocytes % 5 % Monocytes % 2 % Eosinophils % 2 % Basophils % 0 % Neutrophils # 9.9 H (1.3-7.7) k/uL Lymphocytes # 0.5 L (1.0-4.8) k/uL Monocytes # 0.2 (0-1.0) k/uL Eosinophils # 0.3 (0-0.7) k/uL Basophils # 0.0 (0-0.2) k/uL Sodium 131 L (137-145) mmol/L Potassium 4.5 (3.5-5.1) mmol/L Chloride 105 (98-107) mmol/L Carbon Dioxide 22 (22-30) mmol/L Anion Gap 4 mmol/L BUN 16 (7-17) mg/dL Creatinine 0.57 (0.52-1.04) mg/dL Est GFR (CKD-EPI)AfAm >90 (>60 ml/min/1.73 sqM) Est GFR (CKD-EPI)NonAf >90 (>60 ml/min/1.73 sqM) Glucose 93 (74-99) mg/dL Plasma Lactic Acid Noah (0.7-2.0) mmol/L Calcium 8.9 (8.4-10.2) mg/dL Total Bilirubin 1.2 (0.2-1.3) mg/dL AST 23 (14-36) U/L ALT 13 (4-34) U/L Alkaline Phosphatase 65 (38-126) U/L C-Reactive Protein 1.8 H (<1.0) mg/dL Total Protein 6.9 (6.3-8.2) g/dL Albumin 4.2 (3.5-5.0) g/dL Amylase 58 (30-110) U/L Lipase 200 (23-300) U/L Urine HCG, Qual (Not Detectd) Influenza Type A (PCR) Not Detected (Not Detectd) Influenza Type B (PCR) Not Detected (Not Detectd) RSV (PCR) Not Detected (Not Detectd) SARS-CoV-2 (PCR) Not Detected (Not Detectd) 09/07/24 09/07/24 Range/Units 18:56 21:17 WBC (3.8-10.6) k/uL RBC (3.80-5.40) m/uL Hgb (11.4-16.0) gm/dL Hct (34.0-46.0) % MCV (80.0-100.0) fL MCH (25.0-35.0) pg MCHC (31.0-37.0) g/dL RDW (11.5-15.5) % Plt Count (150-450) k/uL MPV Neutrophils % % Lymphocytes % % Monocytes % % Eosinophils % % Basophils % % Neutrophils # (1.3-7.7) k/uL Lymphocytes # (1.0-4.8) k/uL Monocytes # (0-1.0) k/uL Eosinophils # (0-0.7) k/uL Basophils # (0-0.2) k/uL Sodium (137-145) mmol/L Potassium (3.5-5.1) mmol/L Chloride (98-107) mmol/L Carbon Dioxide (22-30) mmol/L Anion Gap mmol/L BUN (7-17) mg/dL Creatinine (0.52-1.04) mg/dL Est GFR (CKD-EPI)AfAm (>60 ml/min/1.73 sqM) Est GFR (CKD-EPI)NonAf (>60 ml/min/1.73 sqM) Glucose (74-99) mg/dL Plasma Lactic Acid Noah 0.5 L (0.7-2.0) mmol/L Calcium (8.4-10.2) mg/dL Total Bilirubin (0.2-1.3) mg/dL AST (14-36) U/L ALT (4-34) U/L Alkaline Phosphatase (38-126) U/L C-Reactive Protein (<1.0) mg/dL Total Protein (6.3-8.2) g/dL Albumin (3.5-5.0) g/dL Amylase (30-110) U/L Lipase (23-300) U/L Urine HCG, Qual Not Detected (Not Detectd) Influenza Type A (PCR) (Not Detectd) Influenza Type B (PCR) (Not Detectd) RSV (PCR) (Not Detectd) SARS-CoV-2 (PCR) (Not Detectd) Disposition Clinical Impression: Enterocolitis Disposition: HOME SELF-CARE Condition: Good Instructions (If sedation given, give patient instructions): Acute Nausea and Vomiting (ED), Acute Diarrhea (ED) Prescriptions: Ibuprofen [Motrin] 600 mg PO Q8HR PRN #30 tab PRN Reason: Pain Ondansetron [Zofran] 4 mg PO Q8HR PRN #15 tab PRN Reason: Nausea Is patient prescribed a controlled substance at d/c from ED?: No Referrals: Carmelo Watkins MD [Primary Care Provider] - 1-2 days Time of Disposition: 22:23
[2024-09-07] MEDS: ONDANSETRON 4 MG/2 ML VIAL IVP STA (18:41)
[2024-09-07 19:05] LABS: Basophils % (A) 0 %; Eosinophils # (A) 0.3 k/uL (0-0.7); Eosinophils % (A) 2 %; HCT 44.4 % (34.0-46.0); HGB 14.6 gm/dL (11.4-16.0); Lymphocytes # (A) 0.5 k/uL (1.0-4.8); Lymphocytes % (A) 5 %; MCH 30.2 pg (25.0-35.0); MCHC 32.9 g/dL (31.0-37.0); MCV 91.6 fL (80.0-100.0); Mean Platelet Volume 6.6; Monocytes # (A) 0.2 k/uL (0-1.0); Monocytes % (A) 2 %; Neutrophils # (A) 9.9 k/uL (1.3-7.7); Neutrophils % (A) 90 %; Platelet Count 253 k/uL (150-450); RBC 4.85 m/uL (3.80-5.40); RDW 12.8 % (11.5-15.5)
[2024-09-07 19:32] LABS: ALT 13 U/L (4-34); AST 23 U/L (14-36); African American GFR (CKD) >90 (>60 ml/min/1.73 sqM); Albumin 4.2 g/dL (3.5-5.0); Alkaline Phosphatase 65 U/L (38-126); Amylase 58 U/L (30-110); Anion Gap 4 mmol/L; Blood Urea Nitrogen 16 mg/dL (7-17); C Reactive Protein 1.8 mg/dL (<1.0); Calcium 8.9 mg/dL (8.4-10.2); Carbon Dioxide 22 mmol/L (22-30); Chloride 105 mmol/L (98-107); Glucose 93 mg/dL (74-99); Lipase 200 U/L (23-300); Non-African American GFR(CKD) >90 (>60 ml/min/1.73 sqM); Sodium 131 mmol/L (137-145); Total Bilirubin 1.2 mg/dL (0.2-1.3); Total Protein 6.9 g/dL (6.3-8.2)
[2024-09-07 19:46] LABS: Potassium 4.5 mmol/L (3.5-5.1)
--- NOTE | 2024-09-07 19:57 | US ---
EXAMINATION TYPE: US abdomen APPY DATE OF EXAM: 09/07/2024 COMPARISON: NONE CLINICAL INDICATION: Female, 34 years old with history of Right lower quadrant pain; RLQ. Fever per patient. Nausea. TECHNIQUE: Multiple sonographic images of the right lower quadrant were obtained with graded compress ion with grayscale and color Doppler imaging. FINDINGS: APPENDIX AP Diameter (normal < 6mm): Appendix not visualized at time of scan Is the appendix seen in its entirety from the proximal cecum to distal end: No Is the appendix compressible: N/A Does the appendix wall appear hypervascular: N/A Is an appendicolith present: N/A Is there inflammatory changes or free fluid present: No DIRECTOR [employer] DATABASE NOTES: Peristalsing bowel seen. Normal appearing lymph node visualized near the inguinal region. Appendix not seen at time of scan. IMPRESSION: Unable to visualize the appendix by ultrasound. Further clinical correlation will be needed. [facility], , 09/07/2024 7:54 PM
[2024-09-07] MEDS: KETOROLAC 15 MG/ML 1 ML VIAL IVP STA ×2 (20:01→21:36)
[2024-09-07] MEDS: HYDROmorphone 0.5 MG/0.5 ML SYRINGE IVP STA (20:02)
--- NOTE | 2024-09-07 20:45 | CT ---
EXAMINATION TYPE: CT abdomen pelvis w con DATE OF EXAM: 09/07/2024 COMPARISON: 11/25/2022 HISTORY: 34-year-old female Right lower quadrant pain, right lower back pain TECHNIQUE: Contiguous axial scanning of the abdomen and pelvis following administration of 100 ml Iso cesar 300 IV contrast. Delayed images through the kidneys and coronal/sagittal reconstructions perform ed. CT DLP: 673.6 mGycm Automated exposure control for dose reduction was used. FINDINGS: Heart normal size without pericardial effusion. Similar patchy scarring inferior lingula compared to 2022. No pleural effusion. Small area of focal fat anterior falciform ligament. Otherwise, no focal liver lesion or biliary duct al dilatation. Portal venous system is patent. Gallbladder, adrenal glands, kidneys, spleen, and pancreas within normal limits. Prominent scattered fluid-filled small bowel loops throughout. Some small bowel loops measure up limi ts of normal up to 2.6 cm. Aside from a string of small appendicoliths measuring up to 6 mm, the appendix appears normal. Some l iquid stool in the right side of the colon. Possible mild circumferential wall thickening scattered t hroughout the left side of the colon. No pericolic inflammatory change. Bladder is nondistended. Uterus anteverted. Left periuterine varices. Follicular changes in the ovari es. Trace cul-de-sac free fluid likely physiologic. Right-sided pelvic phleboliths. No pelvic lymphad enopathy seen. Facet arthropathy lower lumbar spine. IMPRESSION: 1. PROMINENT FLUID-FILLED SMALL BOWEL LOOPS AND SOME SEGMENTAL MILD CIRCUMFERENTIAL COLONIC WALL THIC KENING. CONSIDER A NONSPECIFIC ENTEROCOLITIS. 2. A FEW SMALL APPENDICOLITHS MEASURING UP TO 6 MM. OTHERWISE, THE APPENDIX APPEARS NORMAL. 3. LEFT PERIUTERINE VARICES NONSPECIFIC BUT MAY BE SEEN WITH PELVIC CONGESTION SYNDROME. 4. TRACE CUL-DE-SAC FREE FLUID LIKELY PHYSIOLOGIC. [facility], , 09/07/2024 8:43 PM
[2024-09-07] MEDS: SODIUM CHLORIDE 0.9% 1,000 ML IV STA (21:35)
[2024-09-07] MEDS: HYDROmorphone 1 MG/ML 1 ML SYRINGE IVP STA (21:39)
[2024-09-07] MEDS: ONDANSETRON 4 MG ODT STARTER PACK 2 TAB BTL PO STA (22:39)
[2024-09-07] MEDS: ACET/COD 300 MG/30 MG STARTER PACK 6 TAB BTL PO STA (22:39)
[2024-09-07 22:46] VITALS: BP 148/86; PULSE 79; RESP 18
== END 2024-09-07 22:45 | disposition home or self-care (01) ==
LOC: EC 17:26
CPT/HCPCS: 36415; 74177; 76705; 80053; 81025; 82150; 83605; 83690; 85025; 86140; 87636; 96361; 96374; 96375; 96376; 99284

== ENCOUNTER 2025-01-30 22:30 | Emergency (ER) | payer BC ==
[2025-01-30] MEDS: IBUPROFEN 600 MG TAB PO STA (23:36)
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
[2025-01-31] MEDS: traMADol 50 MG TAB PO STA (01:13)
[2025-01-31] MEDS: KETOROLAC 15 MG/ML 1 ML VIAL IM STA (02:03)
[2025-01-31 02:12] VITALS: BP 115/77; PULSE 89; RESP 18; TEMP 98.6
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
== END 2025-01-31 02:12 | disposition home or self-care (01) ==
LOC: EC 22:30
DX: S93.401A Sprain of unspecified ligament of right ankle, initial encounter (principal); Z87.891 Personal history of nicotine dependence; W22.8XXA Striking against or struck by other objects, initial encounter
CPT/HCPCS: 96372; 99283